=== PATIENT | male | born 1930 | race Caucasian/White ===

== ENCOUNTER 2018-03-17 09:53 | Inpatient (IN) ==
--- NOTE | 2018-03-17 15:12 | Internal Med History&Physical ---
<Karlee Pal N - Last Filed: 03/17/18 18:04> Date of Encounter: 03/17/18 Time of Encounter: 14:56 Internal Medicine - H&P: HPI Chief complaint: difficulty voiding Admitted From: Intrahospital Transfer History of present illness: Mr. Bean is a 87 year old male with a PMHx of atrial fibrillation on warfarin, COPD, hyperlipidemia, CKD stage 2 who was hospitalized at [facility] in acute-care March 06-2017 after presenting with worsening dyspnea and nonproductive cough and was found to have RLL pneumonia. Per chart review, he was started on Rocephin, Zithromax, and IV clindamycin. WBC decreased during hospitalization and creatinine improved to 1.02 by date of discharge to swing bed. Pt transferred to swing bed on 03/09/2018 for ongoing IV antibiotics and PT/OT therapy. His dyspnea worsened on March 15. Chest x-ray showed stable right lower lobe consolidation and mild left basilar consolidation. He was started on Levaquin and a Probiotic. His dyspnea lessened over the next 2 days. He had difficulty voiding and Murillo catheter was reinserted. He had hematuria after catheter insertion, but this improved on March 17. His creatinine srini to 2.27 on March 17. BUN srini to 36. Echocardiogram found his LVEF to be 65-70%. Moderate aortic stenosis and mild tricuspid regurgitation was found. BNP was improved at 166 on March 17. On March 17, family requested transfer to [facility] for further evaluation of renal function and his prostate. Upon presentation to [facility], pt complains of worsening difficulty voiding. Pt's son reported he had an elevated PSA 7 years ago and was found to have BPH with a negative prostate biopsy. Pt denies frequency, urgency, or nocturia. Pt admits to right upper and b/l lower extremity edema that has improved for the past few days. Denies hx of heart failure. Pt denies CP. Admits to worsening SOB that occurs even after movement in bed. Admits to productive cough with coughing up small amounts of red sputum 4 days ago. Pt admits to having diarrhea the past we ek with the most recent diarrhea yesterday. 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 Psychiatric history: no psych history - Past Surgical History Surgical History: other Additional surgical history: Stent placed in right leg 20 years ago - Social History Smoking Status: Former smoker Smokeless Tobacco Status: No Alcohol use: occasionally Drug use: none Current living situation: Home - Independent Activity Level: Independent ambulation, Uses cane/walker - Family History Father Adopted: No Family Member Ethnicity: Non- Living Status: Hx Family Cardiac Disorders: Yes Hx Family Respiratory Disorders: No Hx Family Cancer: Yes Hx Family GI Disorders: No Hx Family Endocrine Disorder: No Hx Family Neuromuscular Disorders: No Hx Family Neurologic Disorders: No Hx Family HEENT Disorders: No Hx Family Autoimmune Disorders: No Internal Medicine - H&P: Meds Albuterol Sulfate [Albuterol Inhaler] 2 puff IH QID 09/01/15 [History] Aspirin [Adult Low Dose Aspirin EC] 81 mg PO DAILY 09/01/15 [History] Cholecalciferol (Vitamin D3) [Vitamin D3] 2,000 unit PO DAILY 09/01/15 [History] Diltiazem CD (24hr) [Cardizem CD] 300 mg PO DAILY 09/01/15 [History] Pravastatin Sodium [Pravachol] 20 mg PO HS 09/01/15 [History] Tiotropium [Spiriva] 18 mcg IH DAILY 09/01/15 [History] Budesonide/Formoterol 160/4.5 [Symbicort 160/4.5] 2 puff IH BIDR 03/06/18 [History] Guaifenesin [Mucinex] 600 mg PO BID 03/06/18 [History] Latanoprost/Pf [Latanoprost 0.005% Eye Drop] 1 drop BOTH EYES HS 03/06/18 [History] Albuterol Neb [Proventil Neb] 2.5 mg IH Q2H PRN inhsol 03/09/18 [Rx] Clindamycin 600 MG/50 ML [Cleocin Premix 600 MG/50 ML] 600 mg IVPB Q8H 5 Days bag 03/09/18 [Rx] Digoxin [Lanoxin] 0.125 mg PO DAILY tablet 03/09/18 [Rx] Finasteride [Proscar] 5 mg PO DAILY tablet 03/09/18 [Rx] Furosemide [Lasix] 20 mg PO DAILY tablet 03/09/18 [Rx] cefTRIAXone [Rocephin] 1,000 mg IVP DAILY 5 Days vial 03/09/18 [Rx] Brinzolamide/Brimonidine Tart [Simbrinza 1%-0.2% Eye Drops] 1 drop BOTH EYES BID 03/17/18 [History] Potassium Chloride [Klor-Con 10] 20 meq PO DAILY 03/17/18 [History] Warfarin [Coumadin] 1 mg PO MOFR 03/17/18 [History] Warfarin [Coumadin] 2 mg PO SUTUWETHSA 03/17/18 [History] Allergy/AdvReac Type Severity Reaction Status Date / Time No Known Allergies Allergy Verified 03/06/18 09:37 All Systems PM: A 10-system review of systems was performed and is negative for pertinent findings except as documented above in the HPI. - Constitutional Constitutional: weakness - EENT Eyes: no blurry vision, no change in vision Ears: decreased hearing Nose, mouth and throat: dry mouth - Cardiovascular Cardiovascular ROS IM: dyspnea, dyspnea on exertion, edema, irregular heart rhythm, palpitations, no chest pain, no diaphoresis - Respiratory Respiratory: cough, dyspnea, dyspnea on exertion, change in phlegm color - Gastrointestinal Gastrointestinal: change in bowel habits, diarrhea, no abdominal pain, no hematochezia, no melena, no nausea, no vomiting - Genitourinary Genitourinary ROS male: difficulty urinating, hematuria, no dysuria, no nocturia, no urinary frequency, no urinary urgency - Musculoskeletal Musculoskeletal ROS IM: no arthralgias, no back pain, no joint swelling Additional comments: chronic L hip pain - Integumentary Additional comments: R anterior patel skin tear. Not bleeding - Hematologic/Lymphatic Hematologic/Lymphatic: easy bleeding, easy bruising - Constitutional Vitals: Temp Pulse Resp BP Pulse Ox 97.4 F L 80 18 125/74 95 03/17/18 13:06 03/17/18 13:06 03/17/18 13:06 03/17/18 13:06 03/17/18 13:06 General appearance: Present: cooperative, pleasant, no acute distress, answers questions appropriately Exam: Awake - Head Head exam: Present: atraumatic, normocephalic - Eye Eye exam: Present: normal appearance, PERRL, conjuntiva pink, sclera anicteric. Absent: scleral icterus Pupils: Present: PERRL - Neck Neck exam general surgery: Present: supple, trachea midline. Absent: lymphadenopathy - Respiratory Respiratory exam: Present: prolonged expiratory phase, wheezes. Absent: accessory muscle use, CTAB, rales, respiratory distress, rhonchi, tachypnea - Cardiovascular Cardiovascular exam: Present: irregular rhythm, +S1, +S2. Absent: bradycardia, diastolic murmur, RRR, rubs, systolic murmur, tachycardia - GI/Abdominal GI/Abdominal exam: Present: normal bowel sounds, soft, no peritoneal signs. Absent: distended, hepatomegaly, tenderness - Additional comments: dark urine in murillo catheter bag. No gross blood - Extremities Exam Extremities exam: Present: warm, radial pulses palpable and symmetrical. Absent: calf tenderness, cyanotic, pedal edema Additional comments: 2+ in b/l upper extremities with R worse than L arm - Skin Skin exam: Present: dry. Absent: intact Additional comments: Right anterior tibial superficial 2 cm skin tear - Assessment and plan (1) IRAIS (acute kidney injury) Current Visit: Yes Status: Acute Assessment and plan: Creatinine increased from baseline: 1.1 to 2.7. Etiology possibly from prenenal azotemia, BPH, post-renal obstruction, dehydration, nephrotic syndrome, sepsis-induced, medication-induced Plan: -renal ultrasound pending -IV fluid challenge (Echocardiogram found his LVEF to be 65-70%) -urine creatinine and sodium urine, CK, repeat UA pending -monitor BMP, I&O's -consider Urology consult in the future per family concerns (2) COPD (chronic obstructive pulmonary disease) Current Visit: Yes Status: Chronic Assessment and plan: Chronic Plan: -restart home meds Qualifiers: COPD type: unspecified COPD Qualified Code(s): J44.9 - Chronic obstructive pulmonary disease, unspecified (3) Urinary retention Current Visit: No Status: Acute Assessment and plan: -murillo in place -monitor I&O's -consider voiding trial after creatinine improves (4) CKD (chronic kidney disease) stage 2, GFR 60-89 ml/min Current Visit: No Status: Chronic Assessment and plan: Chronic -acutely worsening due to IRAIS -GFR decreased to 27 from baseline of above 60 -hold medications that can cause IRAIS -continue to monitor (5) Pneumonia Current Visit: No Status: Resolved Assessment and plan: -previous chest x-ray showed RLL and LLL infiltrates -repeat chest x-ray pending -previously on Levaquin, Rocephin, Clindamycin, and Azithromycin since March 10 -most likely resolved and been adequately treated with previous antibiotics Qualifiers: Pneumonia type: due to unspecified organism Laterality: bilateral Lung location: lower lobe of lung Qualified Code(s): J18.1 - Lobar pneumonia, unspecified organism (6) Chronic atrial fibrillation Current Visit: No Status: Chronic Assessment and plan: Chronic -continue warfarin, diltiazem, and Toprol -recent echocardiogram showed LVEF was 65-70%. There was moderate aortic stenosis and mild tricuspid regurgitation. The estimated RVSP was elevated at 41. (7) Edema Current Visit: No Status: Acute Assessment and plan: Acute -albumin 2.7 on 03/13/18 -unclear etiology Qualifiers: Edema type: unspecified Qualified Code(s): R60.9 - Edema, unspecified (8) Diarrhea Current Visit: No Status: Acute Assessment and plan: Improving -GI panel including C. diff at [facility] was negative -CTM Qualifiers: Diarrhea type: unspecified type Qualified Code(s): R19.7 - Diarrhea, un specified (9) Hyperlipidemia Current Visit: No Status: Chronic Assessment and plan: Chronic -restart simvastatin Qualifiers: Hyperlipidemia type: unspecified Qualified Code(s): E78.5 - Hyperlipidemia, unspecified - Time Spent With Patient Total time spent is greater than 50% in coordination of care (as documented) at patient's floor/unit and/or counseling patient: Greater than 35 minutes <Cristiano Greene - Last Filed: 03/17/18 18:59> Internal Medicine - H&P: HPI History of present illness: Mr. Bean is a 87 year old male All Systems PM: A 10-system review of systems was performed and is negative for pertinent findings except as documented above in the HPI. - Constitutional Vitals: Temp Pulse Resp BP Pulse Ox 97.8 F 77 16 119/68 96 03/17/18 15:09 03/17/18 15:09 03/17/18 15:09 03/17/18 15:09 03/17/18 15:09 - Assessment and plan (1) Acute renal failure Current Visit: Yes Status: Suspected Qualifiers: Acute renal failure type: with acute tubular necrosis Qualified Code(s): N17.0 - Acute kidney failure with tubular necrosis (2) Urinary retention Current Visit: No Status: Acute (3) Chronic atrial fibrillation Current Visit: No Status: Chronic (4) Hyperlipidemia Current Visit: No Status: Chronic Qualifiers: Hyperlipidemia type: mixed hyperlipidemia Qualified Code(s): E78.2 - Mixed hyperlipidemia (5) Diarrhea Current Visit: No Status: Acute Qualifiers: Diarrhea type: unspecified type Qualified Code(s): R19.7 - Diarrhea, unspecified (6) COPD (chronic obstructive pulmonary disease) Current Visit: Yes Status: Chronic Qualifiers: COPD type: unspecified COPD Qualified Code(s): J44.9 - Chronic obstructive pulmonary disease, unspecified - Time Spent With Patient Total time spent is greater than 50% in coordination of care (as documented) at patient's floor/unit and/or counseling patient: - Attending Attestation The history, physical exam, and medical decision making was performed by the medical student either while I was physically present and actively involved or I personally re-performed the exam and medical decision making. I have verified the accuracy of the medical student's documentation with regards to the history, physical exam findings, and medical decision making on 03/17/18. Mr Bean is 87 y/o male transferred from [facility] due to acute renal insufficiency and urinary retention. He had been hospitalized for pneumonia and had been moved to swing bed. He became more dyspneic and edematous. Creatinine increased and he needed to have murillo replaced. He was transferred for further care. At this time he feels weak. He is dyspneic with movement. He remains edematous and has had some diarrhea. No fever or chills. Family at bedside. Exam alert Moderate distress with movement Mucus membranes dry Heart distant Lungs with scant end exp wheeze on R Abd soft Edema all extremities Rupper > L, L lower > R. Moves all extremities. I/P 1. IRAIS - most likely prerenal vs postobstructive - maintain murillo. Small amount IV fluids 2. Pneumonia - has received adequate abx. follow for now Further diagnoses and plan as above.
[2018-03-17] MEDS ORDERED: Naloxone 0.4 MG/ML INJ IVP PRN (15:54)
[2018-03-17] MEDS: 0.9 % Sodium Chloride 1,000 ML IVC SCH (16:35)
[2018-03-17] MEDS ORDERED: Warfarin perPT PO PRN (18:00)
[2018-03-17] MEDS ORDERED: *HR* Warfarin 2 MG TABLET PO ONE (18:00)
[2018-03-17] MEDS: Ipratropium/Albuterol Neb 3 ML IH SCH ×3 (18:03→23:56)
[2018-03-17] MEDS: Budesonide/Formoterol 160/4.5 1 PUFF INH IH SCH (20:56)
[2018-03-17] MEDS: Latanoprost 2.5 ML BOTTLE BOTH EYES SCH (21:04)
[2018-03-17] MEDS: Brinzolamide/Brimonidine Tart [Simbrinza 1%-0.2% Eye OP SCH (21:05)
[2018-03-18] MEDS ORDERED: Pantoprazole 40 MG VIAL IVP ONE (02:21)
[2018-03-18] MEDS: Pantoprazole 40 MG in 0.9 % Sodium Chloride Mini Bag 100 ML IVC SCH ×5 (02:46→23:39)
--- NOTE | 2018-03-18 02:51 | Event Note ---
Addendum entered and electronically signed by Susan Ramey 03/18/18 03:39: Patient was examined at the bedside after this bleeding incident. He was in no acute distress and denied any continued discomfort. He denied shortness of breath or chest discomfort. Nursing staff obtained new vital signs, which were all WNL. Patient denies any tenderness to abdominal palpation. Original Note: Date of Encounter: 03/18/18 Time of Encounter: 02:50 Nursing staff reported "black tarry" emesis. Upon arrival to bedside, patient is sitting up comfortably in bed. He denies any current nausea or abdominal pain, and states that he feels better now than he did prior to vomiting. He did have some heartburn symptoms earlier this evening; however, he says that has now resolved. He reports little PO intake this evening, and denies consumption of coffee or other dark colored liquids. Patient denies any history of GERD or GI bleed, though he does report experiencing heartburn "more than I probably should". He is currently on coumadin therapy secondary to atrial fibrillation. His last INR was therapeutic at 2.4. Patient was started on protonix gtt at 8mg/hr, with a one-time loading dose of 40mg IVP. Laboratory was contacted to draw AM labs at this time along with type and screen. Plan for repeat hemoglobin and hematocrit in 4 hours. Will hold morning dose of coumadin at this time and consider warfarin reversal via PCC or FFP if patient experiences additional bleeding episodes.
[2018-03-18 03:10] LABS: Basophils # 0.1 K/mcL (0.0-0.2); Basophils % 0.4 %; Eosinophils # 0.1 K/mcL (0.0-0.6); Eosinophils % 0.4 %; Hematocrit 36.5 % (37.5-50.1); Hemoglobin 12.4 g/dL (12.9-16.9); Immature Granulocytes % 2.4 % (0-4); Lymphocytes # 0.8 K/mcL (0.6-4.6); Lymphocytes % 4.7 %; Mean Corpuscular Hemoglobin 30.1 pg (28.0-33.3); Mean Corpuscular Volume 88.6 fL (83.0-100.0); Mean Platelet Volume 8.8 fL (9.4-12.4); Monocytes % 6.2 %; Neutrophils # 13.8 K/mcL (1.6-8.9); Platelet Count 200 K/mcL (140-400); Red Blood Count 4.12 M/mcL (4.19-5.50); Red Cell Distribution Width 14.2 % (11.5-14.5); Segmented Neutrophils % 85.9 %
[2018-03-18 03:22] LABS: INR 2.8
[2018-03-18 03:26] LABS: Calcium 7.9 mg/dL (8.6-10.3); Magnesium 1.8 mg/dL (1.6-2.6); Phosphorous 4.9 mg/dL (2.7-4.5); Potassium 4.9 mEq/L (3.5-5.1)
[2018-03-18] MEDS: Ipratropium/Albuterol Neb 3 ML IH SCH ×6 (03:31→23:51)
[2018-03-18] MEDS: Ondansetron 4 MG/2 ML VIAL IVP PRN (04:42)
[2018-03-18 05:56] LABS: Bilirubin,Urine Small (Negative); Blood,Urine Large (Negative); Clarity,Urine Cloudy (Clear); Color,Urine Dark Yellow (Yellow); Glucose,Urine (UA) Normal (Normal); Ketones,Urine Trace mg/dL (Negative); Leukocyte Esterase,Urine Trace (Negative); Nitrite,Urine Negative (Negative); Protein,Urine >=1000 mg/dL (Neg-Trace); Specific Gravity,Urine > 1.030 (1.010-1.025); Urobilinogen,Urine Normal (Normal)
[2018-03-18 05:59] LABS: Bacteria,Urine None Seen per hpf (None-Few); Hyaline Casts,Urine None Seen per lpf (None-Few); RBC,Urine TNTC per hpf (0-3); Squamous Epithelial Cell,Urine Few per lpf (None-Few); WBC,Urine 0-3 per hpf (0-3)
[2018-03-18 06:14] LABS: Sodium, Urine 17.9 mEq/L
[2018-03-18] MEDS: 0.9 % Sodium Chloride 1,000 ML IVC SCH (06:25)
[2018-03-18 06:48] LABS: Hematocrit 37.6 % (37.5-50.1); Hemoglobin 12.7 g/dL (12.9-16.9)
[2018-03-18] MEDS: Budesonide/Formoterol 160/4.5 1 PUFF INH IH SCH ×2 (07:40→20:14)
[2018-03-18] MEDS: Aspirin Enteric Coated 81 MG Tablet PO SCH (07:50)
[2018-03-18] MEDS: Diltiazem CD (24hr) 300 MG CAPSULE PO SCH (07:50)
[2018-03-18] MEDS: *HR* Digoxin 0.125 MG TABLET PO SCH (07:51)
[2018-03-18] MEDS: Brinzolamide/Brimonidine Tart [Simbrinza 1%-0.2% Eye OP SCH (08:00)
[2018-03-18] MEDS ORDERED: Tiotropium 18 MCG inhalation IH SCH (09:00)
--- NOTE | 2018-03-18 10:49 | Internal Med Progress Note ---
<Jl Andrade Chito - Last Filed: 03/18/18 13:31> Hospitalist Progress Note - Encounter Date of Encounter: 03/18/18 Time of Encounter: 09:00 - Subjective Interval History: Sitting comfortably in bed. No new complaints this morning. Had 1 episode black tarry emesis ~0200. Denies abdominal pain, further emesis, similar prior emesis, chest pain, blurry vision/diplopia, dizzy/lightheadedness, or syncope. He does admit to GOMEZ that is significant even when moving in bed. Wears O2 at night at home. - Exam Vitals: Temp Pulse Resp BP Pulse Ox 98.3 F 80 18 133/76 98 03/18/18 06:39 03/18/18 06:39 03/18/18 07:40 03/18/18 06:39 03/18/18 07:40 Exam: General: Awake, alert, appears stated age, mildly dyspnic with movement and conversation, no signs of acute toxicity HEENT: EOMi, pupils equal/round, mucus membranes moist. Cardiac: Regular rate, irregularly irregular rhythm, S1/S2 present but distant, no murmurs, heaves, thrills appreciated, radial pulse 2+ bilaterally, normal capillary refill, 3+ LE edema L>R, UE R>L Chest: Symmetric chest rise, non tender Pulmonary: Decreased air movement, normal resp effort, diffuse end exp wheezes, no rhonchi, rales appreciated Abdominal: Soft, non-tender, no distention, guarding, rebound tenderness, or rigidity Neuro: AOx3, CN grossly intact Psych: Normal affect Integumentary: [place], warm, dry, R lower leg bandaged with break in skin, clear drainage present - Assessment and Plan (1) [id number] kidney injury Current Visit: Yes Status: Acute Assessment and Plan: -CKD 2 -Creatinine increased from baseline: 1.1 to 2.7 at [place]. -Cr worse today at 3.03, BUN 51, GFR 20 -Etiology possibly from prenenal azotemia, BPH, post-renal obstruction, dehydration, nephrotic syndrome, sepsis-induced, medication-induced -Renal ultrasound unremarkable -Received 2L IV NS -Ur Cr 257, Ur Na 17.9, UA with large macro and microscopic blood and trace esterase. -Urine culture pending -Mckee in place with hematuria noted on insertion -Trend renal function, I&O's and avoid nephrotoxic medications -Neph consulted today and will appreciate their input. (2) UGI bleed Current Visit: Yes Status: Suspected Assessment and Plan: -1 episode of black, tarry emesis ~0200 -Warfarin held overnight -Protonix infusion started overnight -GI consulted and will do EGD probably tomorrow if INR <2, currently 2.8 -NPO at midnight for EGD (3) Urinary retention Current Visit: No Status: Acute Assessment and Plan: -Mckee placed, hematuria noted at placement and on UA -Worsening IRAIS currently -Monitor I&O's (4) Chronic atrial fibrillation Current Visit: No Status: Chronic Assessment and Plan: -Continuing home digoxin and diltiazem -Warfarin held for possible EGD tomorrow when INR <2 for possible UGI bleed. -Recent ECHO showed LVEF was 65-70%, moderate as and mild tr. Estimated RVSP was elevated at 41. (5) COPD (chronic obstructive pulmonary disease) Current Visit: Yes Status: Chronic Assessment and Plan: -Continue home meds and duonebs q4h -Will start PO prednisone today. (6) Edema Current Visit: No Status: Acute Assessment and Plan: -Albumin 2.7 on 03/13/18 -LE edema 3+ L>R, UE R>L -ECHO EF 65-70% -No pulm effusion or increasing congestion on CXR (7) Diarrhea Current Visit: No Status: Acute Assessment and Plan: -GI panel with C diff at [place] neg (8) Hyperlipidemia Current Visit: No Status: Chronic Assessment and Plan: Continue home statin DVT Prophylaxis: Warfarin held today for possible UGI bleed. INR 2.8 currently. - Time Spent with Patient Total time spent is greater than 50% in coordination of care (as documented) at patient's floor/unit and/or counseling patient: less than 15 minutes Plan of Care Discussed with: patient Internal Medicine: Result - Labs CBC & Chem 7: 03/18/18 06:40 03/18/18 02:55 Labs: Short CBC 03/18/18 03/18/18 Range/Units 02:55 06:40 WBC 16.0 H (4.3-11.1) K/mcL Hgb 12.4 L 12.7 L (12.9-16.9) g/dL Hct 36.5 L 37.6 (37.5-50.1) % Plt Count 200 (140-400) K/mcL Neutrophils # 13.8 H (1.6-8.9) K/mcL BMP 03/18/18 02:55 Sodium 136 Potassium 4.9 Chloride 105 Carbon Dioxide 21 L BUN 51 H Creatinine 3.03 H Glucose 181 H Calcium 7.9 L Urine 03/18/18 Range/Units 05:11 Urine Color Dark Yellow (Yellow) Urine Clarity Cloudy A (Clear) Urine pH 5.0 (5.0-8.0) pH Units Ur Specific [place] > 1.030 H (1.010-1.025) Urine Protein >=1000 H (Neg-Trace) mg/dL Urine Glucose (UA) Normal (Normal) mg/dL - ABG Interpretation ABG results: PT/INR, D-dimer PT 32.0 Seconds (9.4-12.1) H 03/18/18 02:55 - Impressions Impressions Chest X-Ray 03/17/18 16:05 IMPRESSION: Bibasilar opacities suspicious for pneumonia. Findings appear stable since comparison exam. D/ / Anthony Faye MD / Anthony Faye MD Interpreting Provider: Anthony Faye MD Retroperitoneum Ultrasound 03/17/18 22:00 IMPRESSION: Unremarkable ultrasound of the kidneys and urinary bladder. D/ / Ryan Dhaliwal MD / Ryan Dhaliwal MD Interpreting Provider: Ryan Dhaliwal MD Consult Discharge Plan - Plan Referrals: Samuel Hyatt MD [Primary Care Provider] - <Cristiano Greene - Last Filed: 03/18/18 18:05> Hospitalist Progress Note - Exam Vitals: Temp Pulse Resp BP Pulse Ox 97.7 F 69 14 125/69 96 03/18/18 14:01 03/18/18 14:01 03/18/18 15:54 03/18/18 14:01 03/18/18 15:54 - Assessment and Plan (1) Chronic atrial fibrillation Current Visit: No Status: Chronic (2) Coffee ground emesis Current Visit: Yes Status: Acute (3) Acute renal failure Current Visit: Yes Status: Suspected (4) Urinary retention Current Visit: No Status: Acute (5) COPD (chronic obstructive pulmonary disease) Current Visit: Yes Status: Chronic - Time Spent with Patient Total time spent is greater than 50% in coordination of care (as documented) at patient's floor/unit and/or counseling patient: Internal Medicine: Result - Labs CBC & Chem 7: 03/18/18 06:40 03/18/18 02:55 Labs: Short CBC 03/18/18 03/18/18 Range/Units 02:55 06:40 WBC 16.0 H (4.3-11.1) K/mcL Hgb 12.4 L 12.7 L (12.9-16.9) g/dL Hct 36.5 L 37.6 (37.5-50.1) % Plt Count 200 (140-400) K/mcL Neutrophils # 13.8 H (1.6-8.9) K/mcL BMP 03/18/18 02:55 Sodium 136 Potassium 4.9 Chloride 105 Carbon Dioxide 21 L BUN 51 H Creatinine 3.03 H Glucose 181 H Calcium 7.9 L Urine 03/18/18 Range/Units 05:11 Urine Color Dark Yellow (Yellow) Urine Clarity Cloudy A (Clear) Urine pH 5.0 (5.0-8.0) pH Units Ur Specific [place] > 1.030 H (1.010-1.025) Urine Protein >=1000 H (Neg-Trace) mg/dL Urine Glucose (UA) Normal (Normal) mg/dL - ABG Interpretation ABG results: PT/INR, D-dimer PT 32.0 Seconds (9.4-12.1) H 03/18/18 02:55 - Impressions Impressions Chest X-Ray 03/17/18 16:05 IMPRESSION: Bibasilar opacities suspicious for pneumonia. Findings appear stable since comparison exam. D/ / Anthony Faye MD / Anthony Faye MD Interpreting Provider: Anthony Faye MD Retroperitoneum Ultrasound 03/17/18 22:00 IMPRESSION: Unremarkable ultrasound of the kidneys and urinary bladder. D/ / Ryan Dhaliwal MD / Ryan Dhaliwal MD Interpreting Provider: Ryan Dhaliwal MD - Attending Attestation I examined this patient and my medical decision-making was reviewed with the Resident Physician on 03/18/18. I agree with the documented findings, disposition and treatment plan as described except to the extent set forth below. Mr Bean has been in observation for acute renal failure. He remains moderate to high risk due to potential for worsening clinical status. Mr Bean had some dark emesis last night. No fever or chills. H/H stable. No pain. Breathing OK at this time though seems to be wheezing some. Exam alert Comfortable in bed Mucus membranes dry Heart distant Lungs with some end exp wheeze Abd soft Edema persists. I/P 1. IRAIS - renal function worse today. More than double baseline. Will make inpatient status today as he is not going to be discharged 2. Possible GI bleed - EGD tomorrow Further diagnoses and plan as above. <Jl Andrade - Last Filed: 03/18/18 13:31> (5) COPD (chronic obstructive pulmonary disease) Qualifiers: COPD type: unspecified COPD Qualified Code(s): J44.9 - Chronic obstructive pulmonary disease, unspecified (6) Edema Qualifiers: Edema type: unspecified Qualified Code(s): R60.9 - Edema, unspecified (7) Diarrhea Qualifiers: Diarrhea type: unspecified type Qualified Code(s): R19.7 - Diarrhea, unspecified (8) Hyperlipidemia Qualifiers: Hyperlipidemia type: mixed hyperlipidemia Qualified Code(s): E78.2 - Mixed hyperlipidemia <Cristiano Greene - Last Filed: 03/18/18 18:05> (3) Acute renal failure Qualifiers: Acute renal failure type: with acute tubular necrosis Qualified Code(s): N17.0 - Acute kidney failure with tubular necrosis (5) COPD (chronic obstructive pulmonary disease) Qualifiers: COPD type: unspecified COPD Qualified Code(s): J44.9 - Chronic obstructive pulmonary disease, unspecified
[2018-03-18] MEDS: Ipratropium/Albuterol Neb 3 ML IH ONE ×2 (11:16→11:18)
--- NOTE | 2018-03-18 11:38 | Nephrology Consult Note ---
Addendum entered and electronically signed by Sunny Gomes DO 03/22/18 15:25: I have personally performed a face to face evaluation on this patient. I have reviewed and agree with the care plan. History and Exam by me shows: 87 y/o WM who presented with IRAIS, supratherapeutic INR and GIB. Rec placing a murillo for the urinary retention. Recommend a trial IVF for potential prerenal etiology. Will start the IRAIS work up and testing. Continue to follow a renal protective strategy. Thank you for consulting the [facility]. Will follow with you. Original Note: Date of Encounter: 03/18/18 Time of Encounter: 11:27 Assessment and Plan (1) IRAIS (acute kidney injury) Current Visit: Yes Status: Acute Serum creatinine is 3.03 today with a GFR of 20. Baseline appears to be normal kidney function. Avoid nephrotoxins and renal dose all medications. Strict I&O and daily weights. Urine eosinophil ordered to rule out acute interstitial nephritis. (2) UGI bleed Current Visit: Yes Status: Suspected Per primary. (3) Urinary retention Current Visit: No Status: Acute Resolved, Murillo cath in place. (4) Pneumonia Current Visit: No Status: Resolved Per primary. Qualifiers: Pneumonia type: due to unspecified organism Laterality: bilateral Lung location: lower lobe of lung Qualified Code(s): J18.1 - Lobar pneumonia, unspecified organism (5) Wound of right lower extremity Current Visit: Yes Status: Acute Continue to cover and change as needed. Qualifiers: Qualified Code(s): S81.801A - Unspecified open wound, right lower leg, initial encounter History of Present Illness - Reason for Consult Consult date: 03/18/18 Acute Kidney Injury Requesting physician: Cristiano Greene - Chief Complaint dyspnea - History of Present Illness Mr. Bean is 87-year-old male who was transferred from [facility]. He was originally admitted there March 06. He was then transferred to "swing bed for rehabilitation". Yesterday he was transferred to [facility] for worsening dyspnea and non productive cough. Chest x-ray reflective of pneumonia. He was started on Levaquin and a probiotic. He also had trouble voiding, and a Murillo catheter was reinserted. He had gross hematuria with an increased SCR. Scr is 3.03 and GFR is 20 today. On 03/15/18 GFR was greater than 60 and Scr was 0.89. Much of the IRAIS workup has been completed. Retroperitoneal US was negative, Urine NA was 17.9. UA + for blood, ketones, bilirubin and Leukocyte Esterase, a culture was ordered. He does still have a murillo cath, but urine color has improved. Mr. Bean has not seen a cartographic aide in approximately 10 years. The one he did see was at the [facility] in a kidney biopsy was performed. Patient is unsure as to why it was performed or what it did result. He denies a family history of hemodialysis but does tell me that his brother had CKD. He denies chronic use of NSAIDs. Home Medication list reviewed and he is on Lasix 20 mg by mouth daily. No other nephrotoxic agents noted on the list. He lives at home by himself. He is a former smoker he quit approximately 12 years ago. He denies any illicit drug use, he does report he was a pretty "heavy drinker" and he stopped approximately 5-6 years ago. [facility] were consulted for management of IRAIS. Continue IV fl uid, avoid any nephrotoxic agents. Strict I&O, daily weights. 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 Psychiatric history: no psych history - Past Surgical History Surgical History: other Additional surgical history: Stent placed in right leg 20 years ago - Social History Smoking Status: Former smoker Smokeless Tobacco Status: No Alcohol use: occasionally Drug use: none - Family History Father Adopted: No Family Member Ethnicity: Non- Living Status: Hx Family Cardiac Disorders: Yes Hx Family Respiratory Disorders: No Hx Family Cancer: Yes Hx Family GI Disorders: No Hx Family Endocrine Disorder: No Hx Family Neuromuscular Disorders: No Hx Family Neurologic Disorders: No Hx Family HEENT Disorders: No Hx Family Autoimmune Disorders: No Medications and Allergies Albuterol Sulfate [Albuterol Inhaler] 2 puff IH QID 09/01/15 [History] Aspirin [Adult Low Dose Aspirin EC] 81 mg PO DAILY 09/01/15 [History] Cholecalciferol (Vitamin D3) [Vitamin D3] 2,000 unit PO DAILY 09/01/15 [History] Diltiazem CD (24hr) [Cardizem CD] 300 mg PO DAILY 09/01/15 [History] Pravastatin Sodium [Pravachol] 20 mg PO HS 09/01/15 [History] Tiotropium [Spiriva] 18 mcg IH DAILY 09/01/15 [History] Budesonide/Formoterol 160/4.5 [Symbicort 160/4.5] 2 puff IH BIDR 03/06/18 [History] Guaifenesin [Mucinex] 600 mg PO BID 03/06/18 [History] Latanoprost/Pf [Latanoprost 0.005% Eye Drop] 1 drop BOTH EYES HS 03/06/18 [History] Albuterol Neb [Proventil Neb] 2.5 mg IH Q2H PRN inhsol 03/09/18 [Rx] Clindamycin 600 MG/50 ML [Cleocin Premix 600 MG/50 ML] 600 mg IVPB Q8H 5 Days bag 03/09/18 [Rx] Digoxin [Lanoxin] 0.125 mg PO DAILY tablet 03/09/18 [Rx] Finasteride [Proscar] 5 mg PO DAILY tablet 03/09/18 [Rx] Furosemide [Lasix] 20 mg PO DAILY tablet 03/09/18 [Rx] cefTRIAXone [Rocephin] 1,000 mg IVP DAILY 5 Days vial 03/09/18 [Rx] Brinzolamide/Brimonidine Tart [Simbrinza 1%-0.2% Eye Drops] 1 drop BOTH EYES BID 03/17/18 [History] Potassium Chloride [Klor-Con 10] 20 meq PO DAILY 03/17/18 [History] Warfarin [Coumadin] 1 mg PO MOFR 03/17/18 [History] Warfarin [Coumadin] 2 mg PO SUTUWETHSA 03/17/18 [History] Allergy/AdvReac Type Severity Reaction Status Date / Time No Known Allergies Allergy Verified 03/06/18 09:37 Review of Systems All Systems review (narrative): The remainder of the systems are negative. Constitutional: no chills, no fatigue, no fever(s) Nose, mouth and throat: dry mouth Cardiovascular: dyspnea on exertion, no chest pain Respiratory: cough Gastrointestinal: hematemesis, no change in bowel habits, no dyspepsia, no nausea, no vomiting Exam - Vital Signs Vital signs: Initial Vital Signs Temp Pulse Resp BP Pulse Ox 97.4 F L 80 18 125/74 95 03/17/18 13:06 03/17/18 13:06 03/17/18 13:06 03/17/18 13:06 03/17/18 13:06 Vital Signs - Last 8 Hours Temp Pulse Resp BP Pulse Ox 03/18/18 10:11 97.8 F 94 18 136/74 98 03/18/18 07:40 18 98 03/18/18 06:39 98.3 F 80 15 133/76 94 03/18/18 05:01 98.0 F 84 16 146/82 98 Intake and Output 03/17/18 03/18/18 03/18/18 23:59 07:59 15:59 Intake Total 320 / 320 1200 / 1200 480 / 480 Output Total 0 / 0 350 / 350 75 / 75 Balance 320 / 320 850 / 850 405 / 405 Intake: IV Fluids 1100 / 1100 0.9 % Sodium Chloride 1,000 ML 1000 / 1000 @ 100 mls/hr IVC .Q10H [facility]EL[facility] Rx#: [id number] Protonix 40 MG In 0.9 % Sodium 100 / 100 Chloride (Mini-Bag +) 100 ML @ 20 mls/hr IVC .Q5H [facility] Rx#: [id number] Oral 320 / 320 100 / 100 480 / 480 Output: Urine 0 / 0 Emesis 250 / 250 Catheter 0 / 0 100 / 100 75 / 75 Urethral (Murillo) 0 / 0 0 / 0 Other: Meal Dinner Breakfast Percent of Meal Consumed 5% 5% Weight 83.7 kg Blood Glucose* 108 Patient Weight 03/18/18 23:59 Weight 83.7 kg - General Appearance General appearance: well-developed, well-nourished EENT: ATNC, hearing intact, vision intact Neck: supple Respiratory: clear Cardiology: edema (+1 pitting edema noted to bilat lower extremities. Generalized swelling noted to entire body.), normal S1, normal S2 Gastrointestinal: normoactive bowel sounds, no tenderness, no guarding Integumentary: no rash, warm and dry Neurologic: alert and oriented x3 Psychiatric: mood/affect appropriate, cooperative Results - Lab Results 03/18/18 06:40 03/18/18 02:55 Most recent lab results Calcium 7.9 mg/dL (8.6-10.3) L 03/18/18 02:55 Phosphorus 4.9 mg/dL (2.7-4.5) H 03/18/18 02:55 Magnesium 1.8 mg/dL (1.6-2.6) 03/18/18 02:55 Urine Creatinine 257 mg/dL 03/18/18 05:11 Urine Sodium 17.9 mEq/L 03/18/18 05:11 Consult Discharge Plan - Plan Referrals: Samule Hyatt MD [Primary Care Provider] -
[2018-03-18] MEDS: predniSONE 20 MG TABLET PO SCH (15:13)
--- NOTE | 2018-03-18 15:37 | Gastroenterology Consult Note ---
<SabasJacob - Last Filed: 03/18/18 15:34> Date of Encounter: 03/18/18 Time of Encounter: 15:35 - Assessment and plan (1) Coffee ground emesis Current Visit: Yes Status: Acute Assessment and plan: Etiology unclear. Hemoglobin stable, hemodynamically stable. Patient does report history of GERD. Patient only had one episode. Patient is on aspirin as well as Coumadin making his risk for GI bleed elevated. Patient was noted to have epistaxis which could also be contributing. Plan for EGD tomorrow. No thing by mouth after midnight. (2) Chronic atrial fibrillation Current Visit: No Status: Chronic Assessment and plan: Currently anticoagulated with Coumadin. INR noted to be therapeutic. Hold for procedure tomorrow. - Time Spent With Patient Total time spent is greater than 50% in coordination of care (as documented) at patient's floor/unit and/or counseling patient: GI History of Present Illness - Data of Consult Patient: new to practice Consult date: 03/18/18 Requesting Physician: Cristiano Greene DO - Consult Narrative Reason for consult: coffe groud emesis History of present illness: Mr. Bean is a 87 year old male with history of atrial fibrillation, coronary disease, GERD who presents for evaluation of history of present illness. GI was consulted due to an episode of coffee-ground emesis. Patient states he was recently admitted to [facility] with pneumonia and was treated being treated for pneumonia however was noted that his kidney function has progressively worsened since transfer to [facility] for further evaluation. Upon arrival patient had a single episode of emesis that was noted to be black. He states he has never had anything like this before. He reports he just had one episode and no further episodes. Patient does report occasional nosebleeds. He reports that he is on Coumadin for his atrial fibrillation has been compliant with this. Denies any history of gastrointestinal bleed. He does report that he has had a long-standing history of heartburn. Denies any abdominal pain, nausea, diarrhea, change in bowel habits, hematochezia, melena. 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 Psychiatric history: no psych history - Past Surgical History Surgical History: other Additional surgical history: Stent placed in right leg 20 years ago - Social History Smoking Status: Former smoker Smokeless Tobacco Status: No Alcohol use: occasionally Drug use: none - Family History Father Adopted: No Family Member Ethnicity: Non- Living Status: Hx Family Cardiac Disorders: Yes Hx Family Respiratory Disorders: No Hx Family Cancer: Yes Hx Family GI Disorders: No Hx Family Endocrine Disorder: No Hx Family Neuromuscular Disorders: No Hx Family Neurologic Disorders: No Hx Family HEENT Disorders: No Hx Family Autoimmune Disorders: No All systems PM: reviewed and no additional remarkable complaints except as st ated - Constitutional Vitals: Temp Pulse Resp BP Pulse Ox 97.7 F 69 15 125/69 100 03/18/18 14:01 03/18/18 14:01 03/18/18 14:01 03/18/18 14:01 03/18/18 14:01 General appearance: Present: A&O X 3, pleasant, no acute distress - Head Head exam: Present: atraumatic, normal inspection, normocephalic - Respiratory Respiratory exam: Present: CTAB. Absent: rales, rhonchi, wheezes - Cardiovascular Cardiovascular exam: Present: irregular rhythm. Absent: gallop, rubs, systolic murmur, tachycardia - GI/Abdominal GI/Abdominal exam: Present: normal bowel sounds, soft. Absent: distended, tenderness - Extremities Exam Additional comments: Mild upper extremity edema Results - Labs CBC & Chem 7: 03/18/18 06:40 03/18/18 02:55 Labs: Last Result Calcium 7.9 mg/dL (8.6-10.3) L 03/18/18 02:55 Entire Visit Hgb 12.7 g/dL (12.9-16.9) L 03/18/18 06:40 Hct 37.6 % (37.5-50.1) 03/18/18 06:40 PT 32.0 Seconds (9.4-12.1) H 03/18/18 02:55 - ABG ABG results: PT/INR, D-dimer PT 32.0 Seconds (9.4-12.1) H 03/18/18 02:55 - Impressions Impressions Chest X-Ray 03/17/18 16:05 IMPRESSION: Bibasilar opacities suspicious for pneumonia. Findings appear stable since comparison exam. D/ / Anthony Faye MD / Anthony Faye MD Interpreting Provider: Anthony Faye MD Retroperitoneum Ultrasound 03/17/18 22:00 IMPRESSION: Unremarkable ultrasound of the kidneys and urinary bladder. D/ / Ryan Dhaliwal MD / Ryan Dhaliwal MD Interpreting Provider: Ryan Dhaliwal MD Consult Discharge Plan - Plan Referrals: Samuel Hyatt MD [Primary Care Provider] - <Eduardo Reyes - Last Filed: 03/19/18 09:23> - Time Spent With Patient Total time spent is greater than 50% in coordination of care (as documented) at patient's floor/unit and/or counseling patient: GI History of Present Illness - Data of Consult Requesting Physician: Cristiano Greene DO - Consult Narrative History of present illness: Mr. Bean is a 87 year old male - Constitutional Vitals: Temp Pulse Resp BP Pulse Ox 98.7 F 86 20 149/76 97 03/19/18 08:13 03/19/18 08:13 03/19/18 08:13 03/19/18 08:13 03/19/18 08:13 Results - Labs CBC & Chem 7: 03/19/18 04:59 03/19/18 04:59 Labs: Last Result Calcium 8.2 mg/dL (8.6-10.3) L 03/19/18 04:59 Entire Visit Hgb 11.9 g/dL (12.9-16.9) L 03/19/18 04:59 Hct 34.6 % (37.5-50.1) L 03/19/18 04:59 PT 32.0 Seconds (9.4-12.1) H 03/18/18 02:55 - ABG ABG results: PT/INR, D-dimer PT 32.0 Seconds (9.4-12.1) H 03/18/18 02:55 - Attending Attestation Mr Bean is a pleasant physically deconditioned 87 year old white male who presents with coffee-ground emesis. He has been anticoagulated with carbonation of aspirin and warfarin. His his last INR was 2.8. There is a questionable history of epistaxis. Patient does have some dysphagia and occasionally chokes on food. Standing history of gastroesophageal reflux. Recommend EGD on the morning of March 19. Multiple other problems as discussed above. Transfuse as needed. Thank you very much for this consultation I examined this patient and my medical decision-making was reviewed with the Resident Physician. I agree with the documented findings, disposition and treatment plan as described except to the extent set forth below.
[2018-03-18] MEDS: Latanoprost 2.5 ML BOTTLE BOTH EYES SCH (20:48)
[2018-03-18] MEDS: Brinzolamide 1% 10 ML BOTTLE BOTH EYES SCH (20:48)
[2018-03-19] MEDS: Ipratropium/Albuterol Neb 3 ML IH SCH ×5 (04:00→19:37)
[2018-03-19] MEDS: Pantoprazole 40 MG in 0.9 % Sodium Chloride Mini Bag 100 ML IVC SCH ×2 (04:34→10:45)
[2018-03-19 05:19] LABS: Hepatitis A Antibody IgM Nonreactive (Nonreactive); Hepatitis B Core IgM Nonreactive (Nonreactive); Hepatitis B Surface Antigen Nonreactive (Nonreactive); Hepatitis C Virus Antibody Nonreactive (Nonreactive)
[2018-03-19 05:23] LABS: Basophils % 0.2 %; Eosinophils % 0.1 %; Hematocrit 34.6 % (37.5-50.1); Hemoglobin 11.9 g/dL (12.9-16.9); Immature Granulocytes % 1.5 % (0-4); Lymphocytes # 0.6 K/mcL (0.6-4.6); Lymphocytes % 3.5 %; Mean Corpuscular HGB Conc 34.4 g/dL (31.6-35.5); Mean Corpuscular Hemoglobin 30.5 pg (28.0-33.3); Mean Corpuscular Volume 88.7 fL (83.0-100.0); Mean Platelet Volume 9.2 fL (9.4-12.4); Monocytes # 0.9 K/mcL (0.0-1.3); Monocytes % 4.8 %; Neutrophils # 15.9 K/mcL (1.6-8.9); Platelet Count 214 K/mcL (140-400); Red Cell Distribution Width 14.4 % (11.5-14.5); Segmented Neutrophils % 89.9 %
[2018-03-19] MEDS ORDERED: 0.9 % Sodium Chloride 250 ML ONE (05:25)
[2018-03-19 05:42] LABS: Calcium 8.2 mg/dL (8.6-10.3); Potassium 5.5 mEq/L (3.5-5.1)
[2018-03-19] MEDS: Budesonide/Formoterol 160/4.5 1 PUFF INH IH SCH ×2 (07:44→19:37)
[2018-03-19] MEDS ORDERED: Lidocaine -MPF 2% 2 ML VIAL ONE (07:54)
--- NOTE | 2018-03-19 07:58 | Anesthesia Evaluation PreOp ---
Date of Encounter: 03/19/18 Time of Encounter: 07:50 - Past History Planned Operation: EGD Cardiac History: HTN, Arrhythmia (Afib on coumadin, INR 2.8), Other (Impressions: Atrial fibrillation. LVEF 65-70%. Normal LV chamber size, wall thickness and systolic function. Mild RV dilation with normal function. Moderate aortic stenosis. Mild tricuspid regurgitation) Pulmonary History: Former smoker, COPD, Other (hospitalized with [facility] on MAR 06, mild pulmonary HTN) [employer] History: CVA (pt denies but stroke in H and P) Other Medical History: Renal (actue on chronic renal disease) Anesthesia History: No Prior Anesthetic Complications Alcohol Use: occasionally Drug use: none Medications and Allergies Albuterol Sulfate [Albuterol Inhaler] 2 puff IH QID 09/01/15 [History] Aspirin [Adult Low Dose Aspirin EC] 81 mg PO DAILY 09/01/15 [History] Cholecalciferol (Vitamin D3) [Vitamin D3] 2,000 unit PO DAILY 09/01/15 [History] Diltiazem CD (24hr) [Cardizem CD] 300 mg PO DAILY 09/01/15 [History] Pravastatin Sodium [Pravachol] 20 mg PO HS 09/01/15 [History] Tiotropium [Spiriva] 18 mcg IH DAILY 09/01/15 [History] Budesonide/Formoterol 160/4.5 [Symbicort 160/4.5] 2 puff IH BIDR 03/06/18 [History] Guaifenesin [Mucinex] 600 mg PO BID 03/06/18 [History] Latanoprost/Pf [Latanoprost 0.005% Eye Drop] 1 drop BOTH EYES HS 03/06/18 [History] Albuterol Neb [Proventil Neb] 2.5 mg IH Q2H PRN inhsol 03/09/18 [Rx] Clindamycin 600 MG/50 ML [Cleocin Premix 600 MG/50 ML] 600 mg IVPB Q8H 5 Days bag 03/09/18 [Rx] Digoxin [Lanoxin] 0.125 mg PO DAILY tablet 03/09/18 [Rx] Finasteride [Proscar] 5 mg PO DAILY tablet 03/09/18 [Rx] Furosemide [Lasix] 20 mg PO DAILY tablet 03/09/18 [Rx] cefTRIAXone [Rocephin] 1,000 mg IVP DAILY 5 Days vial 03/09/18 [Rx] Brinzolamide/Brimonidine Tart [Simbrinza 1%-0.2% Eye Drops] 1 drop BOTH EYES BID 03/17/18 [History] Potassium Chloride [Klor-Con 10] 20 meq PO DAILY 03/17/18 [History] Warfarin [Coumadin] 1 mg PO MOFR 03/17/18 [History] Warfarin [Coumadin] 2 mg PO SUTUWETHSA 03/17/18 [History] Allergy/AdvReac Type Severity Reaction Status Date / Time No Known Allergies Allergy Verified 03/06/18 09:37 - Meds/Allergy Pre-op Review Medications Reviewed: Yes Allergies Reviewed: Yes Beta Blockers on Current Med List: No Anesthesia Results - Labs 03/19/18 04:59 03/19/18 04:59 - Imaging EKG: report reviewed Anesthesia Exam Vital Signs Temperature 97.4 F L 03/17/18 13:06 Pulse Rate 80 03/17/18 13:06 Respiratory Rate 18 03/17/18 13:06 Blood Pressure 125/74 03/17/18 13:06 O2 Sat by Pulse Oximetry 95 03/17/18 13:06 Temperature 97.9 F 03/19/18 07:21 Pulse Rate 85 03/19/18 07:21 Respiratory Rate 16 03/19/18 07:44 Blood Pressure 152/69 03/19/18 07:21 O2 Sat by Pulse Oximetry 100 03/19/18 07:44 Weight: 83.7 Pain Scale: 0 Pain Scale Used: Numeric (1 - 10) - Cardiac Rhythm: Irregular Murmur: Systolic - Pulmonary Breath Sounds: bilateral Clear (wheezes bilaterally post breathing treatment) Respiratory Effort: Symmetrical Anesthesia Assess/Plan ASA Score: 4 Modified Sultana Scale for Level of Consciousness: Cooperative, oriented, and tranquil Anesthetic Plan: MAC Monitoring Plan: Standard Monitors Recovery Plan: PACU
[2018-03-19] MEDS: 0.9 % Sodium Chloride 1,000 ML IVC SCH (08:35)
--- NOTE | 2018-03-19 08:53 | Anesthesia Evaluation Post Op ---
Date of Encounter: 03/19/18 Time of Encounter: 08:52 - Vital Signs Vital Signs: BP 144/61, HR 105, SpO2 98% on 2 LNC, RR 22 - Lungs Lungs: Wheezes (baseline) - Airway Airway: Non-obstructed - Cardiovascular Irregular Rate, Baseline Rhythm - Mental Status Mental Status: Alert & Oriented, Answers Appropriately - Pain Pain Scale: 0 Pain Scale used: Numeric (1 - 10) - Nausea Vomiting Nausea Vomiting: Not Present - Discharge PostOp Status: Transfer Patient to floor
[2018-03-19] MEDS: predniSONE 20 MG TABLET PO SCH (09:32)
[2018-03-19] MEDS: *HR* Digoxin 0.125 MG TABLET PO SCH (09:32)
[2018-03-19] MEDS: Aspirin Enteric Coated 81 MG Tablet PO SCH (09:32)
[2018-03-19] MEDS: Diltiazem CD (24hr) 300 MG CAPSULE PO SCH (09:32)
[2018-03-19] MEDS: Brinzolamide 1% 10 ML BOTTLE BOTH EYES SCH ×2 (09:38→22:28)
[2018-03-19] MEDS: Ondansetron 4 MG/2 ML VIAL IVP PRN (09:42)
--- NOTE | 2018-03-19 10:29 | Internal Med Progress Note ---
Addendum entered and electronically signed by Cristiano Greene DO 03/21/18 13:05: Original Note: <RaymondJl Chito - Last Filed: 03/19/18 13:37> Hospitalist Progress Note - Encounter Date of Encounter: 03/19/18 Time of Encounter: 10:00 - Subjective Interval History: In bed after returning from EGD. No new complaints today, says breathing is a little more difficult today. Denies abdominal pain, further emesis, similar prior emesis, chest pain, blurry vision/diplopia, dizzy/lightheadedness, or syncope. - Exam Vitals: Temp Pulse Resp BP Pulse Ox 98.7 F 86 20 149/76 97 03/19/18 08:13 03/19/18 08:13 03/19/18 08:13 03/19/18 08:13 03/19/18 08:13 Exam: General: Awake, alert, appears stated age, no acute distress or signs of toxicity HEENT: EOMi, pupils equal/round, mucus membranes moist. Cardiac: Regular rate, irregularly irregular rhythm, S1/S2 present but distant, no murmurs, heaves, thrills appreciated, radial pulse 2+ bilaterally, normal capillary refill, 3+ LE edema L>R, UE R>L Chest: Symmetric chest rise, non tender Pulmonary: Decreased air movement, normal resp effort, diffuse end exp wheezes, no rhonchi, rales appreciated Abdominal: Soft, non-tender, no distention, guarding, rebound tenderness, or rigidity Neuro: AOx3, CN grossly intact Psych: Normal affect Integumentary: [place], warm, dry, R lower leg bandaged with break in skin, clear drainage present - Assessment and Plan (1) Acute renal failure Current Visit: Yes Status: Suspected Assessment and Plan: -Creatinine increased from baseline: 1.1 to 2.7 at [place]. -Etiology possibly from prenenal azotemia, BPH, post-renal obstruction, dehydration, nephrotic syndrome, sepsis-induced, medication-induced -Worsening today. Cr 3.73, BUN 80, GFR 15 -Renal ultrasound unremarkable -Received 2L IV NS -Mckee in place with noted hematuria on insertion. -UA with trace esterase but large blood and tntc microscopic blood. -Trend renal function, I&O's -Neph following and appreciate their recs. (2) Coffee ground emesis Current Visit: Yes Status: Acute Assessment and Plan: -1 episode of black, tarry emesis 03/18/18 -Warfarin held overnight for EGD today. -Protonix infusion continued for EGD -GI consulted and will do EGD today (3) Chronic atrial fibrillation Current Visit: No Status: Chronic Assessment and Plan: -Continuing home digoxin and diltiazem -Warfarin held for EGD today INR <2 for possible UGI bleed. -Recent ECHO showed LVEF was 65-70%, moderate as and mild tr. Estimated RVSP was elevated at 41. (4) COPD (chronic obstructive pulmonary disease) Current Visit: Yes Status: Chronic Assessment and Plan: -Continue home meds and duonebs q4h -Continue prednisone. -Breathing improved with prednisone. (5) Urinary retention Current Visit: No Status: Acute Assessment and Plan: -Mckee placed, hematuria noted at placement and on UA -Worsening IRAIS currently -Monitor I&O's (6) Edema Current Visit: No Status: Acute Assessment and Plan: -Albumin 2.7 on 03/13/18 -LE edema 3+ L>R, UE R>L -ECHO EF 65-70% -No pulm effusion or increasing congestion on CXR DVT Prophylaxis: Warfarin held for EGD today. - Time Spent with Patient Total time spent is greater than 50% in coordination of care (as documented) at patient's floor/unit and/or counseling patient: less than 15 minutes Plan of Care Discussed with: patient Internal Medicine: Result - Labs CBC & Chem 7: 03/19/18 04:59 03/19/18 04:59 Labs: Short CBC 03/19/18 Range/Units 04:59 WBC 17.7 H (4.3-11.1) K/mcL Hgb 11.9 L (12.9-16.9) g/dL Hct 34.6 L (37.5-50.1) % Plt Count 214 (140-400) K/mcL Neutrophils # 15.9 H (1.6-8.9) K/mcL BMP 03/19/18 04:59 Sodium 134 L Potassium 5.5 H Chloride 107 Carbon Dioxide 16 L BUN 80 H Creatinine 3.73 H Glucose 172 H Calcium 8.2 L - ABG Interpretation ABG results: PT/INR, D-dimer PT 32.0 Seconds (9.4-12.1) H 03/18/18 02:55 Consult Discharge Plan - Plan Referrals: Samuel Hyatt MD [Primary Care Provider] - <Cristiano Greene - Last Filed: 03/21/18 08:01> Hospitalist Progress Note - Exam Vitals: Temp Pulse Resp BP Pulse Ox 98 F 87 16 133/70 99 03/21/18 04:00 03/21/18 04:00 03/21/18 04:14 03/21/18 04:00 03/21/18 04:14 - Assessment and Plan (1) Chronic atrial fibrillation Current Visit: No Status: Chronic (2) COPD (chronic obstructive pulmonary disease) Current Visit: Yes Status: Chronic (3) Edema Current Visit: No Status: Acute (4) Urinary retention Current Visit: No Status: Acute (5) Acute renal failure Current Visit: Yes Status: Suspected (6) Esophageal ulcer with bleeding Current Visit: Yes Status: Acute (7) Hyperkalemia Current Visit: Yes Status: Acute - Time Spent with Patient Total time spent is greater than 50% in coordination of care (as documented) at patient's floor/unit and/or counseling patient: Internal Medicine: Result - Labs CBC & Chem 7: 03/21/18 06:14 03/21/18 04:53 Labs: Short CBC 03/21/18 Range/Units 06:14 WBC 18.7 H (4.3-11.1) K/mcL Hgb 11.1 L (12.9-16.9) g/dL Hct 33.0 L (37.5-50.1) % Plt Count 319 (140-400) K/mcL BMP 03/21/18 04:53 Sodium 134 L Potassium 5.6 H Chloride 106 Carbon Dioxide 14 L BUN 130 H Creatinine 4.17 H Glucose 144 H Calcium 7.8 L Liver Function 03/20/18 03/21/18 Range/Units 03:30 06:14 Total Bilirubin 0.5 (0.3-1.0) mg/dL Direct Bilirubin 0.1 (0.0-0.2) mg/dL AST 14 (13-39) Units/L ALT 16 (7-52) Units/L Alkaline Phosphatase 50 (34-104) Units/L Albumin 2.4 L 2.6 L (3.5-5.7) g/dL - ABG Interpretation ABG results: PT/INR, D-dimer PT 73.3 Seconds (9.4-12.1) H* 03/21/18 04:53 - Attending Attestation Please see event note of this date. <Jl Andrade - Last Filed: 03/19/18 13:37> (1) Acute renal failure Qualifiers: Acute renal failure type: with acute tubular necrosis Qualified Code(s): N17.0 - Acute kidney failure with tubular necrosis (4) COPD (chronic obstructive pulmonary disease) Qualifiers: COPD type: unspecified COPD Qualified Code(s): J44.9 - Chronic obstructive pulmonary disease, unspecified (6) Edema Qualifiers: Edema type: unspecified Qualified Code(s): R60.9 - Edema, unspecified <Cristiano Greene - Last Filed: 03/21/18 08:01> (2) COPD (chronic obstructive pulmonary disease) Qualifiers: COPD type: unspecified COPD Qualified Code(s): J44.9 - Chronic obstructive pulmonary disease, unspecified (3) Edema Qualifiers: Edema type: generalized Qualified Code(s): R60.1 - Generalized edema (5) Acute renal failure Qualifiers: Acute renal failure type: with acute tubular necrosis Qualified Code(s): N17.0 - Acute kidney failure with tubular necrosis
[2018-03-19] MEDS: Pantoprazole 40 MG VIAL IVP SCH (16:56)
--- NOTE | 2018-03-19 19:35 | Event Note ---
Date of Encounter: 03/19/18 Time of Encounter: 09:30 [facility] will not allow me to attest/cosign progress note of today. I examined this patient and my medical decision-making was reviewed with the Resident Physician on 03/19/18. I agree with the documented findings, disposition and treatment plan as described except to the extent set forth below. Mr Bean is currently admitted for acute renal failure and GI bleed. He remains moderate to high risk due to potential for worsening clinical status. Mr Bean just returned from EGD. Had esophageal ulcers. Breathing seems better with steroids. Still with edema. No fever or chills. No CP. No diarrhea. Exam alert Comfortable Mucus membranes dry Heart reg and not tachy No wheeze at this time Abd soft Edema persists I/P 1. Anemia due to acute bleed - 2. Esophageal ulcers 3. Acute renal failure 4. Fluid overload Further diagnoses and plan as per progress note of today.
--- NOTE | 2018-03-19 19:47 | Nephrology Progress Note ---
Date of Encounter: 03/19/18 Time of Encounter: 18:15 - Assessment and Plan (1) IRAIS (acute kidney injury) Current Visit: Yes Status: Acute Progressive decline and not a candidate for IVF d/t his hypervolemic volume status Mild hyperkalemia: rec a low K+ diet. 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 Continue to follow a renal protective/conservative strategy by avoiding nephrotoxins and renally dosing appropriate Rx by GFR/CrCl; keep strict I&O and daily weights. Will follow with you. (2) Pneumonia Current Visit: No Status: Resolved Per primary. Qualifiers: Pneumonia type: due to unspecified organism Laterality: bilateral Lung location: lower lobe of lung Qualified Code(s): J18.1 - Lobar pneumonia, unspecified organism (3) Urinary retention Current Visit: No Status: Acute IMproved with Mckee cath in place. (4) UGI bleed Current Visit: Yes Status: Suspected Per primary. (5) Wound of right lower extremity Current Visit: Yes Status: Acute Continue to cover and change as needed. Qualifiers: Qualified Code(s): S81.801A - Unspecified open wound, right lower leg, initial encounter (6) Renal cysts, acquired, bilateral Current Visit: Yes Status: Acute Newly diagnosed and most likely are acquired simple renal cysts. Would recommend serial imaging in about 6 months to assess size and density. Subjective Principal diagnosis: IRAIS Interval history: Pt was s/e and he did not affirm N/V but he did report having minimal if any diet. He reported some shortness of breath as well. Objective - Vital Signs Vital signs: Vital Signs Temp Pulse Resp BP Pulse Ox 03/19/18 18:49 98.4 F 95 15 156/55 97 03/19/18 16:24 18 99 03/19/18 13:54 97.6 F 99 18 138/69 98 03/19/18 11:39 18 98 03/19/18 11:01 97.6 F 92 20 145/71 98 03/19/18 09:15 97.4 F L 99 20 130/70 96 03/19/18 08:13 98.7 F 86 20 149/76 97 03/19/18 07:44 16 100 03/19/18 07:21 97.9 F 85 16 152/69 100 03/19/18 04:42 98.0 F 101 16 138/83 97 03/19/18 04:00 16 98 03/18/18 23:51 17 98 03/18/18 23:29 98.4 F 82 15 133/69 98 03/18/18 20:15 17 97 03/18/18 19:35 98.7 F 66 14 138/63 98 Intake and Output 03/19/18 03/19/18 03/19/18 07:59 15:59 23:59 Intake Total 100 / 100 450 / 450 0 / 0 Output Total 300 / 300 75 / 75 0 / 0 Balance -200 / -200 375 / 375 0 / 0 Intake: IV Fluids 100 / 100 450 / 450 0.9 % Sodium Chloride 1,000 ML 350 / 350 @ 50 mls/hr IVC .Q20H [facility] Rx#: [id number] Protonix 40 MG In 0.9 % Sodium 100 / 100 100 / 100 Chloride (Mini-Bag +) 100 ML @ 20 mls/hr IVC .Q5H [facility] Rx#: [id number] Oral 0 / 0 0 / 0 Output: Urine 0 / 0 Catheter 300 / 300 75 / 75 Other: Meal Lunch Percent of Meal Consumed 60% 60% Blood Glucose* 155 148 - General Appearance General appearance: Present: well-developed, well-nourished, chronically ill, fatigue, frail EENT: Present: ATNC, PERRL, mucous membranes moist Neck: Present: supple Respiratory: Present: course breath sounds Cardiology: Present: edema (trace of the hands and about trace to 1+ of the ankles bilaterally), irregular rhythm, normal S1, normal S2 Gastrointestinal: Present: normoactive bowel sounds, no tenderness, no guarding, obese Integumentary: Present: erythema (with LE wound and dressing in place. ), ecchymotic, chronic venous stasis Neurologic: Present: no focal deficit, no asterixis, alert and oriented x3 Musculoskeletal: Present: no deformities, no clubbing Psychiatric: Present: mood/affect appropriate, cooperative - Lab 03/22/18 02:55 03/22/18 02:55 Most recent lab results Calcium 8.2 mg/dL (8.6-10.3) L 03/19/18 04:59 Phosphorus 4.9 mg/dL (2.7-4.5) H 03/18/18 02:55 Magnesium 1.8 mg/dL (1.6-2.6) 03/18/18 02:55 Urine Creatinine 257 mg/dL 03/18/18 05:11 Urine Sodium 17.9 mEq/L 03/18/18 05:11 - Imaging Kidney/bladder ultrasound: report reviewed Additional Comments: Kidneys demonstrate normal cortical echogenicity. No evidence of hydronephrosis or intrarenal stones. There bilateral renal cortical cysts noted. There is a superior scratch the there is a right upper pole renal cyst measuring approximately 2 cm in diameter. There is a left upper pole renal cyst measuring approximately 36 x 24 x 28 mm in size. Consult Discharge Plan - Plan Referrals: Samuel Hyatt MD [Primary Care Provider] -
[2018-03-19] MEDS: Latanoprost 2.5 ML BOTTLE BOTH EYES SCH (22:30)
[2018-03-20] MEDS: Ipratropium/Albuterol Neb 3 ML IH SCH ×7 (00:02→23:24)
[2018-03-20 04:12] LABS: Basophils % 0.1 %; Immature Granulocytes % 1.2 % (0-4); Lymphocytes # 0.4 K/mcL (0.6-4.6); Lymphocytes % 2.1 %; Mean Corpuscular HGB Conc 34.4 g/dL (31.6-35.5); Mean Corpuscular Hemoglobin 30.6 pg (28.0-33.3); Mean Corpuscular Volume 88.9 fL (83.0-100.0); Mean Platelet Volume 9.2 fL (9.4-12.4); Monocytes % 4.5 %; Neutrophils # 19.6 K/mcL (1.6-8.9); Platelet Count 251 K/mcL (140-400); Red Cell Distribution Width 14.5 % (11.5-14.5); Segmented Neutrophils % 92.1 %
[2018-03-20 04:22] LABS: INR 5.7; Prothrombin Time 64.6 Seconds (9.4-12.1)
[2018-03-20 04:33] LABS: Albumin 2.4 g/dL (3.5-5.7); Calcium 7.9 mg/dL (8.6-10.3); Phosphorous 6.6 mg/dL (2.7-4.5); Potassium 5.5 mEq/L (3.5-5.1)
[2018-03-20] MEDS: 0.9 % Sodium Chloride 1,000 ML IVC SCH (05:21)
[2018-03-20] MEDS: Pantoprazole 40 MG VIAL IVP SCH ×2 (05:23→17:57)
[2018-03-20] MEDS: Budesonide/Formoterol 160/4.5 1 PUFF INH IH SCH ×2 (07:31→20:17)
--- NOTE | 2018-03-20 07:33 | Internal Med Progress Note ---
<Corey Cooper - Last Filed: 03/20/18 15:41> Hospitalist Progress Note - Encounter Date of Encounter: 03/20/18 Time of Encounter: 08:33 - Subjective Interval History: Patient seen and examined resting comfortably in bed. He reports ongoing right upper extremity swelling and shortness of breath today. Right upper extremity ultrasound was negative for DVT. Patient instructed to keep right upper extremity elevated. Renal function continues to decline. Nephrology following for possible need for dialysis. - Exam Vitals: Temp Pulse Resp BP Pulse Ox 97.8 F 90 18 137/76 96 03/20/18 03:46 03/20/18 03:46 03/20/18 03:54 03/20/18 03:46 03/20/18 03:54 Exam: General appearance: Present: cooperative, A&O X 3, no acute distress, awake, pleasant, resting comfortably in bed Head exam: Present: atraumatic, normocephalic Eye exam: Present: EOMI, conjuntiva pink, sclera anicteric ENT exam: Present: mucous membranes moist Neck exam: Present: supple, trachea midline. Absent: lymphadenopathy Respiratory exam: Present: Decreased breath sounds. Absent: accessory muscle use, rales, rhonchi, wheezes Cardiovascular exam: Present: irregularly irregular rhythm, +S1, +S2. Absent: diastolic murmur, gallop, rubs, systolic murmur GI/Abdominal exam: Present: normal bowel sounds, soft, no peritoneal signs. Absent: distended, tenderness Extremities exam: Present: 4+ pedal edema, RUE 4+ edema, warm, radial pulses palpable and symmetrical. Absent: calf tenderness, cyanotic Neurological exam: Present: CN II-XII intact, oriented X3, no focal deficits. Absent: pronater drift, facial droop, speech deficit Psychiatric exam: Present: normal affect, normal mood Skin exam: Present: dry, warm, no rash, R lower leg bandaged with break in skin - Assessment and Plan (1) Acute renal failure Current Visit: Yes Status: Suspected Assessment and Plan: Creatinine increased from baseline: 1.1 to 2.7 at [place]. Slowly worsening despite IV fluids Etiology lilkely from prenenal azotemia, BPH, dehydration, medication-induced Renal ultrasound unremarkable Mckee in place with noted hematuria on insertion. UA with trace esterase but large blood and tntc microscopic blood. Trend renal function, I&O's Neph following. Patient may need dialysis with temporary dialysis catheter placement on Thursday, defer to nephrology. Appreciate recommendations (2) Chronic atrial fibrillation Current Visit: No Status: Chronic Assessment and Plan: Continuing home digoxin and diltiazem Warfarin held, supratherapeutic ECHO showed LVEF was 65-70%, moderate as and mild tr. Estimated RVSP was elevated at 41. (3) COPD (chronic obstructive pulmonary disease) Current Visit: Yes Status: Chronic Assessment and Plan: Continue home meds and duonebs q4h Continue prednisone. (4) Edema Current Visit: No Status: Acute Assessment and Plan: Albumin 2.4, consider dialysis, defer to nephrology LE edema 4+ L>R, UE R>L ECHO EF 65-70% CXR: No pulm effusion or increasing congestion Right upper extremity ultrasound negative for DVT Patient encouraged to keep her right upper extremity elevated. (5) Urinary retention Current Visit: No Status: Acute Assessment and Plan: Mckee placed, hematuria noted at placement and on UA Worsening IRAIS Monitor I&O's (6) Esophageal ulcer with bleeding Current Visit: Yes Status: Acute Assessment and Plan: 1 episode of black, tarry emesis 03/18/18 EGD 03/19/18 revealed esophageal ulcers with coffee-ground material in gastric fundus Warfarin held due supratherapeutic INR Protonix IV GI following (7) Hyperkalemia Current Visit: Yes Status: Acute Assessment and Plan: Potassium 5.5 Continue low salt diet Continue monitoring DVT Prophylaxis: SCDs - Time Spent with Patient Total time spent is greater than 50% in coordination of care (as documented) at patient's floor/unit and/or counseling patient: Internal Medicine: Result - Labs CBC & Chem 7: 03/20/18 03:30 03/20/18 03:30 Labs: Short CBC 03/20/18 Range/Units 03:30 WBC 21.3 H (4.3-11.1) K/mcL Hgb 11.0 L (12.9-16.9) g/dL Hct 32.0 L (37.5-50.1) % Plt Count 251 (140-400) K/mcL Neutrophils # 19.6 H (1.6-8.9) K/mcL BMP 03/20/18 03:30 Sodium 139 Potassium 5.5 H Chloride 110 H Carbon Dioxide 17 L BUN 98 H Creatinine 3.92 H Glucose 138 H Calcium 7.9 L Liver Function 03/20/18 Range/Units 03:30 Albumin 2.4 L (3.5-5.7) g/dL - ABG Interpretation ABG results: PT/INR, D-dimer PT 64.6 Seconds (9.4-12.1) H* D 03/20/18 03:30 - Pulse Oximetry Interpretation Digit-Finger Pulse Oximetry Readin (3.5L O2 via NC) Consult Discharge Plan - Plan Referrals: Samuel Hyatt MD [Primary Care Provider] - <Cristiano Greene - Last Filed: 03/20/18 18:34> Hospitalist Progress Note - Exam Vitals: Temp Pulse Resp BP Pulse Ox 98.4 F 82 18 145/69 98 03/20/18 14:40 03/20/18 14:40 03/20/18 15:59 03/20/18 14:40 03/20/18 15:59 - Assessment and Plan (1) Chronic atrial fibrillation Current Visit: No Status: Chronic (2) COPD (chronic obstructive pulmonary disease) Current Visit: Yes Status: Chronic (3) Edema Current Visit: No Status: Acute (4) Urinary retention Current Visit: No Status: Acute (5) Acute renal failure Current Visit: Yes Status: Suspected (6) Esophageal ulcer with bleeding Current Visit: Yes Status: Acute (7) Hyperkalemia Current Visit: Yes Status: Acute - Time Spent with Patient Total time spent is greater than 50% in coordination of care (as documented) at patient's floor/unit and/or counseling patient: Internal Medicine: Result - Labs CBC & Chem 7: 03/20/18 03:30 03/20/18 03:30 Labs: Short CBC 03/20/18 Range/Units 03:30 WBC 21.3 H (4.3-11.1) K/mcL Hgb 11.0 L (12.9-16.9) g/dL Hct 32.0 L (37.5-50.1) % Plt Count 251 (140-400) K/mcL Neutrophils # 19.6 H (1.6-8.9) K/mcL BMP 03/20/18 03:30 Sodium 139 Potassium 5.5 H Chloride 110 H Carbon Dioxide 17 L BUN 98 H Creatinine 3.92 H Glucose 138 H Calcium 7.9 L Liver Function 03/20/18 Range/Units 03:30 Albumin 2.4 L (3.5-5.7) g/dL - ABG Interpretation ABG results: PT/INR, D-dimer PT 64.6 Seconds (9.4-12.1) H* D 03/20/18 03:30 - Attending Attestation I examined this patient and my medical decision-making was reviewed with the Resident Physician on 03/20/18. I agree with the documented findings, disposition and treatment plan as described except to the extent set forth below. Mr Mane is currently admitted for acute renal failure and esophageal ulcers with bleeding. He remains moderate to high risk due to potential for worsening clinical status. Mr Bean seems to have more abdominal distention today (? fluid). Edema about the same. Breathing is OK. He says he "is in a good mood." No fever or chills. No CP. Duplex negative for DVT RUE. Exam alert Comfortable in bed Mucus membranes dry Heart distant Lungs diminished. Some rhonchi noted Abd soft and distended. Nontender Edema persists Renal function worsened I/P 1. Acute renal failure - anticipate need for dialysis on Thursday 2. Esophageal ulcers. Further diagnoses and plan as above. <Corey Cooper - Last Filed: 03/20/18 15:41> (1) Acute renal failure Qualifiers: Acute renal failure type: with acute tubular necrosis Qualified Code(s): N17.0 - Acute kidney failure with tubular necrosis (3) COPD (chronic obstructive pulmonary disease) Qualifiers: COPD type: unspecified COPD Qualified Code(s): J44.9 - Chronic obstructive pulmonary disease, unspecified (4) Edema Qualifiers: Edema type: unspecified Qualified Code(s): R60.9 - Edema, unspecified <Cristiano Greene - Last Filed: 03/20/18 18:34> (2) COPD (chronic obstructive pulmonary disease) Qualifiers: COPD type: unspecified COPD Qualified Code(s): J44.9 - Chronic obstructive pulmonary disease, unspecified (3) Edema Qualifiers: Edema type: generalized Qualified Code(s): R60.1 - Generalized edema (5) Acute renal failure Qualifiers: Acute renal failure type: with acute tubular necrosis Qualified Code(s): N17.0 - Acute kidney failure with tubular necrosis
[2018-03-20 08:22] LABS: Digoxin 1.5 ng/mL (0.8-2.0)
[2018-03-20] MEDS: Diltiazem CD (24hr) 300 MG CAPSULE PO SCH (08:52)
[2018-03-20] MEDS: *HR* Digoxin 0.125 MG TABLET PO SCH (08:52)
[2018-03-20] MEDS: Aspirin Enteric Coated 81 MG Tablet PO SCH (08:53)
[2018-03-20] MEDS: predniSONE 20 MG TABLET PO SCH (08:53)
[2018-03-20] MEDS: Brinzolamide 1% 10 ML BOTTLE BOTH EYES SCH ×2 (08:54→20:54)
--- NOTE | 2018-03-20 11:45 | Nephrology Progress Note ---
Date of Encounter: 03/20/18 Time of Encounter: 11:30 - Assessment and Plan (1) IRAIS (acute kidney injury) Current Visit: Yes Status: Acute Progressively worsening SCr despite IVF, of which have not helped stabilize renal function, so I recommend stopping the IVF. He and I had a very detailed discussion of dialysis options, and he voiced that he is interested and would consent for temporary HD. However chronic dialysis may be a different opinion, but at least 2-3 HD treatments, he said, he would be open to this if needed. This pt remains high risk and with high degree of medical complex in terms of MDM and E/M. I recommend a low K+ diet this , plus avoidance of nephrotoxins and on Thursday to place a temporary HD catheter, or sooner if emergently needed. (2) Pneumonia Current Visit: No Status: Resolved Per primary. Qualifiers: Pneumonia type: due to unspecified organism Laterality: bilateral Lung location: lower lobe of lung Qualified Code(s): J18.1 - Lobar pneumonia, unspecified organism (3) Urinary retention Current Visit: No Status: Acute IMproved with Mckee cath in place. (4) UGI bleed Current Visit: Yes Status: Suspected Per primary. (5) Wound of right lower extremity Current Visit: Yes Status: Acute Continue to cover and change as needed. Qualifiers: Qualified Code(s): S81.801A - Unspecified open wound, right lower leg, initial encounter (6) Renal cysts, acquired, bilateral Current Visit: Yes Status: Acute Newly diagnosed and most likely are acquired simple renal cysts. Would recommend serial imaging in about 6 months to assess size and density. Subjective Principal diagnosis: IRAIS and PNA Interval history: Pt was s/e and he reported feeling tired and lack of appetite. He otherwise has no new major complaints. Objective - Vital Signs Vital signs: Vital Signs Temp Pulse Resp BP Pulse Ox 03/20/18 11:13 18 95 03/20/18 10:30 98.2 F 76 18 131/74 99 03/20/18 07:57 97.7 F 100 18 125/63 96 03/20/18 07:31 18 94 03/20/18 03:54 18 96 03/20/18 03:46 97.8 F 90 16 137/76 96 03/20/18 00:02 18 98 03/19/18 19:37 18 98 03/19/18 18:49 98.4 F 95 15 156/55 97 03/19/18 16:24 18 99 03/19/18 13:54 97.6 F 99 18 138/69 98 Intake and Output 03/19/18 03/20/18 03/20/18 23:59 07:59 15:59 Intake Total 0 / 0 250 / 250 100 / 100 Output Total 0 / 0 350 / 350 100 / 100 Balance 0 / 0 -100 / -100 0 / 0 Intake: IV Fluids 250 / 250 0.9 % Sodium Chloride 1,000 ML 250 / 250 @ 50 mls/hr IVC .Q20H [facility] Rx#: [id number] Oral 0 / 0 0 / 0 100 / 100 Output: Urine 0 / 0 Catheter 350 / 350 100 / 100 Other: Meal Breakfast Percent of Meal Consumed 60% 40% # Bowel Movements 0 Weight 90 kg Patient Weight 03/20/18 23:59 Weight 90 kg - General Appearance Exam: General appearance: Present: well-developed, well-nourished, chronically ill, fatigue, frail EENT: Present: ATNC, PERRL, mucous membranes moist Neck: Present: supple Respiratory: Present: course breath sounds Cardiology: Present: edema (trace of the hands and about 1+ edema of the ankles bilaterally), irregular rhythm, normal S1, normal S2 Gastrointestinal: Present: normoactive bowel sounds, no tenderness, no guarding, obese Integumentary: Present: erythema (with LE wound and dressing in place. ), ecchymotic, chronic venous stasis Neurologic: Present: no focal deficit, no asterixis, alert and oriented x3 Musculoskeletal: Present: no deformities, no clubbing Psychiatric: Present: mood/affect appropriate, cooperative - Lab 03/22/18 02:55 03/22/18 02:55 Most recent lab results Calcium 7.9 mg/dL (8.6-10.3) L 03/20/18 03:30 Phosphorus 6.6 mg/dL (2.7-4.5) H 03/20/18 03:30 Magnesium 1.8 mg/dL (1.6-2.6) 03/18/18 02:55 Urine Creatinine 257 mg/dL 03/18/18 05:11 Urine Sodium 17.9 mEq/L 03/18/18 05:11 Consult Discharge Plan - Plan Referrals: Samuel Hyatt MD [Primary Care Provider] -
[2018-03-20] MEDS: Latanoprost 2.5 ML BOTTLE BOTH EYES SCH (20:54)
[2018-03-21] MEDS: Ipratropium/Albuterol Neb 3 ML IH SCH ×6 (04:13→23:34)
[2018-03-21 05:52] LABS: Magnesium 2.2 mg/dL (1.6-2.6); Phosphorous 7.4 mg/dL (2.7-4.5)
[2018-03-21 05:54] LABS: Calcium 7.8 mg/dL (8.6-10.3); Potassium 5.6 mEq/L (3.5-5.1); Prothrombin Time 73.3 Seconds (9.4-12.1)
[2018-03-21 05:55] LABS: INR 6.5
[2018-03-21] MEDS: Pantoprazole 40 MG VIAL IVP SCH ×2 (06:14→20:09)
[2018-03-21 06:53] LABS: Hemoglobin 11.1 g/dL (12.9-16.9); Mean Corpuscular HGB Conc 33.6 g/dL (31.6-35.5); Mean Corpuscular Hemoglobin 29.9 pg (28.0-33.3); Mean Corpuscular Volume 88.9 fL (83.0-100.0); Mean Platelet Volume 9.1 fL (9.4-12.4); Platelet Count 319 K/mcL (140-400); Red Blood Count 3.71 M/mcL (4.19-5.50); Red Cell Distribution Width 14.6 % (11.5-14.5)
[2018-03-21 07:13] LABS: Albumin 2.6 g/dL (3.5-5.7); Albumin/Globulin Ratio 1.1 (1.1-2.2); Bilirubin,Direct 0.1 mg/dL (0.0-0.2); Bilirubin,Indirect 0.4 mg/dL (0.0-1.2); Bilirubin,Total 0.5 mg/dL (0.3-1.0); Globulin 2.3 g/dL (2.4-3.5); Total Protein 4.9 g/dL (6.4-8.9)
[2018-03-21] MEDS: Budesonide/Formoterol 160/4.5 1 PUFF INH IH SCH ×2 (07:54→20:36)
[2018-03-21] MEDS ORDERED: *HR* Phytonadione 5 MG TABLET PO ONE (08:00)
--- NOTE | 2018-03-21 08:02 | Internal Med Progress Note ---
<Cristiano Greene - Last Filed: 03/21/18 13:05> Hospitalist Progress Note - Exam Vitals: Temp Pulse Resp BP Pulse Ox 97.5 F L 82 16 120/72 98 03/21/18 10:54 03/21/18 10:54 03/21/18 11:18 03/21/18 10:54 03/21/18 11:18 - Assessment and Plan (1) Acute renal failure Current Visit: Yes Status: Suspected (2) Acute on chronic diastolic CHF (congestive heart failure) Current Visit: Yes Status: Acute (3) Chronic atrial fibrillation Current Visit: No Status: Chronic (4) COPD (chronic obstructive pulmonary disease) Current Visit: Yes Status: Chronic (5) Urinary retention Current Visit: No Status: Acute (6) Esophageal ulcer with bleeding Current Visit: Yes Status: Acute (7) Hyperkalemia Current Visit: Yes Status: Acute (8) Supratherapeutic INR Current Visit: Yes Status: Acute - Time Spent with Patient Total time spent is greater than 50% in coordination of care (as documented) at patient's floor/unit and/or counseling patient: Internal Medicine: Result - Labs CBC & Chem 7: 03/21/18 06:14 03/21/18 04:53 Labs: Short CBC 03/21/18 Range/Units 06:14 WBC 18.7 H (4.3-11.1) K/mcL Hgb 11.1 L (12.9-16.9) g/dL Hct 33.0 L (37.5-50.1) % Plt Count 319 (140-400) K/mcL BMP 03/21/18 04:53 Sodium 134 L Potassium 5.6 H Chloride 106 Carbon Dioxide 14 L BUN 130 H Creatinine 4.17 H Glucose 144 H Calcium 7.8 L Liver Function 03/21/18 Range/Units 06:14 Total Bilirubin 0.5 (0.3-1.0) mg/dL Direct Bilirubin 0.1 (0.0-0.2) mg/dL AST 14 (13-39) Units/L ALT 16 (7-52) Units/L Alkaline Phosphatase 50 (34-104) Units/L Albumin 2.6 L (3.5-5.7) g/dL - ABG Interpretation ABG results: PT/INR, D-dimer PT 73.3 Seconds (9.4-12.1) H* 03/21/18 04:53 Consult Discharge Plan - Plan Referrals: Samuel Hyatt MD [Primary Care Provider] - - Attending Attestation I examined this patient and my medical decision-making was reviewed with the Resident Physician on 03/21/18. I agree with the documented findings, disposition and treatment plan as described except to the extent set forth below. Mr Bean is currently admitted for acute renal failure. His renal function continues to worsen and K is elevated. He remains moderate to high risk due to potential for worsening clinical status. Mr Bean is more dyspneic today. His INR is very high. No fever or chills. No CP. Abd distended. Renal function worse today. Exam alert. Moderate respiratory distress Mucus membranes dry Heart distant and not tachy. Hard to hear Lungs with scattered rhonchi Abd distended Edema present I/P 1. Acute renal failure 2. Resp distress Further diagnoses and plan as above. <Corey Cooper - Last Filed: 03/21/18 17:08> Hospitalist Progress Note - Encounter Date of Encounter: 03/21/18 Time of Encounter: 10:10 - Subjective Interval History: Patient seen and examined resting comfortably in bed. He reports worsening shortness of breath today despite scheduled breathing treatments. Patient instructed to keep right upper extremity elevated. Renal function continues to decline. Patient remains on low potassium diet. Patient was given Kayexelate due to hyperkalemia Nephrology following for possible need for dialysis and temporary HD catheter placement on 03/22/18. Patient's INR was subtherapeutic today, vitamin K and FFP given. Nursing reports limited IV access. Power wand EPIV was placed with ultrasound guidance at bedside with Dr. Patel. - Exam Vitals: Temp Pulse Resp BP Pulse Ox 98 F 87 16 133/70 99 03/21/18 04:00 03/21/18 04:00 03/21/18 04:14 03/21/18 04:00 03/21/18 04:14 Exam: General appearance: Present: cooperative, A&O X 3, no acute distress, awake, pleasant, resting comfortably with increased work with breathing Head exam: Present: atraumatic, normocephalic Eye exam: Present: EOMI, conjuntiva pink, sclera anicteric ENT exam: Present: mucous membranes moist Neck exam: Present: supple, trachea midline. Absent: lymphadenopathy Respiratory exam: Present: Coarse breath sounds, rales, mild accessory muscle use. Absent: rhonchi, wheezes Cardiovascular exam: Present: irregularly irregular rhythm, +S1, +S2. Absent: diastolic murmur, gallop, rubs, systolic murmur GI/Abdominal exam: Present: normal bowel sounds, soft, no peritoneal signs. Absent: distended, tenderness Extremities exam: Present: 4+ pedal edema, BUE 4+ edema, warm, radial pulses palpable and symmetrical. Absent: calf tenderness, cyanotic Neurological exam: Present: CN II-XII intact, oriented X3, no focal deficits. Absent: facial droop, speech deficit Psychiatric exam: Present: normal affect, normal mood Skin exam: Present: dry, warm, no rash, R lower leg bandaged with break in skin - Assessment and Plan (1) Acute renal failure Current Visit: Yes Status: Suspected Assessment and Plan: Creatinine increased from baseline: 1.1 to 2.7 at [place]. Slowly worsening despite IV fluid administration. Fluids were discontinued due to worsening edema. IRAIS etiology likely from prenenal azotemia, BPH, dehydration, medication-induced Renal ultrasound unremarkable Mckee in place with noted hematuria on insertion. UA with trace esterase but large blood and tntc microscopic blood. Trend renal function, I&O's Neph following. Patient may need dialysis with temporary dialysis catheter placement on 03/22/18, defer to nephrology. Appreciate recommendations Coumadin was reversed due to supratherapeutic INR. (2) Acute on chronic diastolic CHF (congestive heart failure) Current Visit: Yes Status: Acute Assessment and Plan: Albumin 2.6, consider dialysis, defer to nephrology LE edema 4+ L>R, UE R>L CXR: No pulm effusion or increasing congestion Right upper extremity ultrasound negative for DVT Patient encouraged to keep his right upper extremity elevated. Echo 03/16/18 revealed LVEF 60-65%, mild RV dilation with normal function, moderate aortic stenosis, mild tricuspid regurg, mild pulmonary hypertension Patient unable to tolerate diuresis secondary to worsening renal function Trial BiPAP to help with fluid overload (3) Acute respiratory failure with hypoxia Current Visit: Yes Status: Acute Assessment and Plan: Likely secondary to fluid overloaded and the setting of acute renal failure and CHF exacerbation. ABG on 03/06/18 revealed pCO2 27 Continue bronchodilators, BiPAP prn, and supplemental oxygen Consider repeat ABG if respiratory function worsens (4) Supratherapeutic INR Current Visit: Yes Status: Acute Assessment and Plan: Patient takes Coumadin for chronic atrial fibrillation Coumadin has been held and INR level 6.5, likely due to recent antibiotic use Coumadin was reversed with vitamin K and FFP Trend INR Patient may need dialysis catheter placement tomorrow Continue close monitoring (5) Chronic atrial fibrillation Current Visit: No Status: Chronic Assessment and Plan: Continuing home digoxin and diltiazem Warfarin held, supratherapeutic INR, vitamin K and FFP given ECHO showed LVEF was 65-70%, moderate as and mild tr. Estimated RVSP was elevated at 41. (6) COPD (chronic obstructive pulmonary disease) Current Visit: Yes Status: Chronic Assessment and Plan: Continue home meds and duonebs q4h Continue prednisone. Trial BiPAP due to fluid overload Consider ABG if respiratory function declines (7) Esophageal ulcer with bleeding Current Visit: Yes Status: Acute Assessment and Plan: 1 episode of black, tarry emesis 03/18/18 EGD 03/19/18 revealed esophageal ulcers with coffee-ground material in gastric fundus Warfarin held due supratherapeutic INR, vitamin K and FFP given Continue Protonix IV GI following (8) Urinary retention Current Visit: No Status: Acute Assessment and Plan: Mckee placed, hematuria noted at placement and on UA Worsening IRAIS Monitor I&O's Nephrology following, appreciate recommendations (9) Hyperkalemia Current Visit: Yes Status: Acute Assessment and Plan: Potassium 5.6 Continue low salt diet Continue close monitoring, nephrology following for possible need for dialysis (10) Hypoalbuminemia Current Visit: Yes Status: Acute Assessment and Plan: Circuit Tester/ dietitian consulted for renal oral supplements DVT Prophylaxis: SCDs - Time Spent with Patient Total time spent is greater than 50% in coordination of care (as documented) at patient's floor/unit and/or counseling patient: Internal Medicine: Result - Labs CBC & Chem 7: 03/21/18 06:14 03/21/18 04:53 Labs: Short CBC 03/21/18 Range/Units 06:14 WBC 18.7 H (4.3-11.1) K/mcL Hgb 11.1 L (12.9-16.9) g/dL Hct 33.0 L (37.5-50.1) % Plt Count 319 (140-400) K/mcL BMP 03/21/18 04:53 Sodium 134 L Potassium 5.6 H Chloride 106 Carbon Dioxide 14 L BUN 130 H Creatinine 4.17 H Glucose 144 H Calcium 7.8 L Liver Function 03/20/18 03/21/18 Range/Units 03:30 06:14 Total Bilirubin 0.5 (0.3-1.0) mg/dL Direct Bilirubin 0.1 (0.0-0.2) mg/dL AST 14 (13-39) Units/L ALT 16 (7-52) Units/L Alkaline Phosphatase 50 (34-104) Units/L Albumin 2.4 L 2.6 L (3.5-5.7) g/dL - ABG Interpretation ABG results: PT/INR, D-dimer PT 73.3 Seconds (9.4-12.1) H* 03/21/18 04:53 - Pulse Oximetry Interpretation Digit-Finger Pulse Oximetry Readin (4L) Actions taken: placed on BiPAP Procedures: Internal Med - EJ/Peripheral Line Arm L Consent Obtained: written consent Time out performed: Yes Skin cleansed in sterile fashion: Yes IV secured and dressing applied: Yes Patient tolerated procedure: well, no complications Additional comments: See corresponding procedure note by Dr. Patel. <Cristiano Greene - Last Filed: 03/21/18 13:05> (1) Acute renal failure Qualifiers: Acute renal failure type: with acute tubular necrosis Qualified Code(s): N17.0 - Acute kidney failure with tubular necrosis (4) COPD (chronic obstructive pulmonary disease) Qualifiers: COPD type: unspecified COPD Qualified Code(s): J44.9 - Chronic obstructive pulmonary disease, unspecified <Corey Cooper - Last Filed: 03/21/18 17:08> (1) Acute renal failure Qualifiers: Acute renal failure type: with acute tubular necrosis Qualified Code(s): N17.0 - Acute kidney failure with tubular necrosis (6) COPD (chronic obstructive pulmonary disease) Qualifiers: COPD type: unspecified COPD Qualified Code(s): J44.9 - Chronic obstructive pulmonary disease, unspecified
[2018-03-21] MEDS: Aspirin Enteric Coated 81 MG Tablet PO SCH (08:41)
[2018-03-21] MEDS: predniSONE 20 MG TABLET PO SCH (08:41)
[2018-03-21] MEDS: Diltiazem CD (24hr) 300 MG CAPSULE PO SCH (08:42)
[2018-03-21] MEDS: *HR* Digoxin 0.125 MG TABLET PO SCH (08:42)
[2018-03-21] MEDS: Brinzolamide 1% 10 ML BOTTLE BOTH EYES SCH ×2 (09:26→21:59)
--- NOTE | 2018-03-21 13:01 | Nephrology Progress Note ---
Date of Encounter: 03/21/18 Time of Encounter: 11:45 - Assessment and Plan (1) IRAIS (acute kidney injury) Current Visit: Yes Status: Acute Progressively worsening SCr. I had a family meeting with the pt and his adult son: I reviewed the Pros/Cons, SE profile of HD, plus the need for a temporary HD catheter. He consented to proceed. Hyperkalemia: s/p kayexalate this AM. Continue the Low K+ (Renal) diet Discussed with the floor RN: limited IV access today. My colleague Dr. Patrick will be on-call starting tomorrow. Thank you. (2) Pneumonia Current Visit: No Status: Resolved Per primary. Qualifiers: Pneumonia type: due to unspecified organism Laterality: bilateral Lung location: lower lobe of lung Qualified Code(s): J18.1 - Lobar pneumonia, unspecified organism (3) Urinary retention Current Visit: No Status: Acute IMproved with Mckee cath in place. (4) UGI bleed Current Visit: Yes Status: Suspected Per primary. (5) Wound of right lower extremity Current Visit: Yes Status: Acute Continue to cover and change as needed. Qualifiers: Qualified Code(s): S81.801A - Unspecified open wound, right lower leg, initial encounter (6) Hyperkalemia Current Visit: Yes Status: Acute See above, re: kayexalate indicated today for hyperkalemia. (7) Renal cysts, acquired, bilateral Current Visit: Yes Status: Acute Newly diagnosed and most likely are acquired simple renal cysts. Would recommend serial imaging in about 6 months to assess size and density. Subjective Principal diagnosis: IRAIS and PNA Interval history: The patient was seen/examined. His son was present and had a thorough discussion regarding dialysis options. The pt affirmed feeling very short of breath with cough and swelling of the hands and feet. He affirmed having no appetite. Objective - Vital Signs Vital signs: Vital Signs Temp Pulse Resp BP Pulse Ox 03/21/18 11:18 16 98 03/21/18 10:54 97.5 F L 82 16 120/72 98 03/21/18 10:30 11 99 03/21/18 08:18 96.7 F L 96 14 126/77 100 03/21/18 07:54 16 96 03/21/18 04:14 16 99 03/21/18 04:00 98 F 87 15 133/70 95 03/21/18 00:07 97.9 F 84 15 108/63 97 03/20/18 23:24 16 98 03/20/18 20:17 18 96 03/20/18 20:00 98.2 F 80 16 116/56 94 03/20/18 15:59 18 98 03/20/18 14:40 98.4 F 82 18 145/69 98 Intake and Output 03/20/18 03/21/18 03/21/18 23:59 07:59 15:59 Intake Total 380 / 380 200 / 200 20 / 20 Output Total 0 / 0 250 / 250 200 / 200 Balance 380 / 380 -50 / -50 -180 / -180 Intake: Oral 380 / 380 200 / 200 20 / 20 Output: Urine 0 / 0 200 / 200 Catheter 250 / 250 0 / 0 Other: Meal Dinner Breakfast Percent of Meal Consumed 20% 0% # Bowel Movements 0 0 Weight 91 kg Patient Weight 03/21/18 23:59 Weight 91 kg - General Appearance Exam: General appearance: Present: well-developed, well-nourished, chronically ill, fatigue, frail EENT: Present: ATNC, PERRL, mucous membranes moist Neck: Present: supple Respiratory: Present: course breath sounds with crackles in the bases Cardiology: Present: edema (1+ hand edena and about 1+ edema of the ankles bilaterally), irregular rhythm, normal S1, normal S2 Gastrointestinal: Present: normoactive bowel sounds, no tenderness, no guarding, obese Integumentary: Present: erythema (with LE wound and dressing in place. ), ecchymotic, chronic venous stasis Neurologic: Present: no focal deficit, no asterixis, alert and oriented x3 Musculoskeletal: Present: no deformities, no clubbing Psychiatric: Present: mood/affect appropriate, cooperative - Lab 03/22/18 02:55 03/22/18 02:55 Most recent lab results Calcium 7.8 mg/dL (8.6-10.3) L 03/21/18 04:53 Phosphorus 7.4 mg/dL (2.7-4.5) H 03/21/18 04:53 Magnesium 2.2 mg/dL (1.6-2.6) 03/21/18 04:53 Urine Creatinine 257 mg/dL 03/18/18 05:11 Urine Sodium 17.9 mEq/L 03/18/18 05:11 Consult Discharge Plan - Plan Referrals: Samuel Hyatt MD [Primary Care Provider] -
--- NOTE | 2018-03-21 14:31 | Procedure Note ---
<Ron Patel - Last Filed: 03/21/18 14:26> Date of procedure: 03/21/18 Pre-op diagnosis: limited IV access Post-op diagnosis: same Procedure: A time-out was completed verifying correct patient, procedure, site, positioning, and special equipment if applicable. The patient was placed in a dependent position appropriate for extended peripheral IV placement (power wand) based on the vein to be cannulated. The patients left antecubital region vein was prepped and draped in sterile fashion. 1% Lidocaine was used to anesthetize the surrounding skin area. A power wide catheter was introduced into the the Antecubital vein using the Seldinger technique and under ultrasound guidance. The catheter was threaded smoothly over the guide wire and appropriate blood return was obtained. Each lumen of the catheter was evacuated of air and flushed with sterile saline. The catheter had a sterile dressing applied. Perfusion to the extremity distal to the point of catheter insertion was checked and found to be adequate. Dr. Greene was available for the entire procedure. The patient tolerated the procedure well and there were no complications. Anesthesia: local Surgeon: Ron Patel Was there an access services assistant present: Yes Ict Development Manager: Corey Cooper Estimated blood loss (cc): 5 IV fluids (cc): 0 Urine output (cc): 0 Specimen: n/a Pathology: none sent Condition: stable Disposition: floor <Cristiano Greene - Last Filed: 03/21/18 18:13> - Attending Attestation Agree with above procedure.
[2018-03-21] MEDS ORDERED: 0.9 % Sodium Chloride 250 ML ONE (15:34)
[2018-03-21 19:22] LABS: Kappa Qnt Free Light Chains 14.9 mg/dL (0.33-1.94); Lambda Qnt Free Light Chains 7.79 mg/dL (0.57-2.63)
[2018-03-21 20:55] LABS: INR 2.7; Prothrombin Time 30.2 Seconds (9.4-12.1)
[2018-03-21] MEDS: Latanoprost 2.5 ML BOTTLE BOTH EYES SCH (21:59)
[2018-03-22] MEDS ORDERED: *HR* Phytonadione 5 MG TABLET PO ONE (00:25)
[2018-03-22 03:11] LABS: Hematocrit 24.3 % (37.5-50.1); Mean Corpuscular HGB Conc 34.2 g/dL (31.6-35.5); Mean Corpuscular Hemoglobin 30.4 pg (28.0-33.3); Mean Platelet Volume 9.2 fL (9.4-12.4); Platelet Count 283 K/mcL (140-400); Red Blood Count 2.73 M/mcL (4.19-5.50); Red Cell Distribution Width 14.4 % (11.5-14.5)
[2018-03-22 03:19] LABS: INR 2.4; Prothrombin Time 26.7 Seconds (9.4-12.1)
[2018-03-22 03:27] LABS: Hemoglobin 8.3 g/dL (12.9-16.9)
[2018-03-22] MEDS: Ipratropium/Albuterol Neb 3 ML IH SCH ×6 (03:31→23:39)
[2018-03-22 03:34] LABS: Blood Urea Nitrogen > 130 mg/dL (8-23); Calcium 7.6 mg/dL (8.6-10.3); Carbon Dioxide 18 mEq/L (23-29); Chloride 104 mEq/L (98-107); Glucose 134 mg/dL (70-105); Potassium 5.2 mEq/L (3.5-5.1); Sodium 133 mEq/L (136-145); eGFR For Non-African Americans 13 (> 60)
[2018-03-22] MEDS ORDERED: 0.9 % Sodium Chloride 250 ML ONE (03:59)
[2018-03-22 06:42] LABS: Urine Collection Duration RANDOM hr; Urine Collection Volume RANDOM mL
[2018-03-22] MEDS: Pantoprazole 40 MG VIAL IVP SCH (06:46)
[2018-03-22] MEDS ORDERED: 0.9 % Sodium Chloride 250 ML IVC PRN (06:49)
[2018-03-22 07:53] LABS: ANA IgG by ELISA NONE DETECTED (None Detected); Complement Component 3 5 mg/dL (88-201); Complement Component 4 27 mg/dL (10-40)
[2018-03-22 07:54] LABS: Myeloperoxidase Ab 0 AU/mL (0-19); Serine Protease-3 Antibody 1 AU/mL (0-19)
[2018-03-22] MEDS: Budesonide/Formoterol 160/4.5 1 PUFF INH IH SCH ×2 (08:15→20:07)
[2018-03-22] MEDS ORDERED: Heparin 1,000 UNITS/500 mL 500 ML ONE (08:22)
[2018-03-22] MEDS ORDERED: *HR* Heparin 5,000 UNIT/ML VIAL ONE (09:20)
--- NOTE | 2018-03-22 09:26 | Procedure Note ---
Date of procedure: 03/22/18 Pre-op diagnosis: dialysis need Post-op diagnosis: same Procedure: Temporary HD catheter Date: 03/22/2018 Time: 0900 Indication: Hemodynamic monitoring/Intravenous access Resident: Dakotah Ramirez DO Attending: Dr. Amelie Flores A time-out was completed verifying correct patient, procedure, site, positioning, and special equipment if applicable. The patient was placed in a dependent position appropriate for central line placement based on the vein to be cannulated. The patients right neck was prepped and draped in sterile fashion. 1% Lidocaine was used to anesthetize the surrounding skin area. A triple lumen 15-[place]ican catheter was introduced into the the internal jugular vein using the Seldinger technique and under ultrasound guidance. The catheter was threaded smoothly over the guide wire and appropriate blood return was obtained. Each lumen of the catheter was evacuated of air and flushed with sterile saline. The catheter was then sutured in place to the skin and a sterile dressing applied. Perfusion to the extremity distal to the point of catheter insertion was checked and found to be adequate. Dr. Amelie Flores was present for the entire procedure. Estimated Blood Loss: 0ml The patient tolerated the procedure well and there were no complications. Anesthesia: local Surgeon: Dakotah Ramirez Was there an carpenter assistant present: Yes Bender Machine: Amelie Flores Estimated blood loss (cc): 0 Specimen: none Condition: stable Disposition: no change
[2018-03-22] MEDS: predniSONE 20 MG TABLET PO SCH (09:31)
[2018-03-22] MEDS: Diltiazem CD (24hr) 300 MG CAPSULE PO SCH (09:32)
[2018-03-22] MEDS: Brinzolamide 1% 10 ML BOTTLE BOTH EYES SCH ×2 (09:32→20:56)
[2018-03-22] MEDS: Aspirin Enteric Coated 81 MG Tablet PO SCH (09:32)
[2018-03-22] MEDS: *HR* Digoxin 0.125 MG TABLET PO SCH (09:37)
--- NOTE | 2018-03-22 09:38 | Internal Med Progress Note ---
<RaymondJl T - Last Filed: 03/22/18 15:07> Hospitalist Progress Note - Encounter Date of Encounter: 03/22/18 Time of Encounter: 09:00 - Subjective Interval History: Laying in bed. No new complaints today, says breathing is a little better today. Denies abdominal pain, further emesis, similar prior emesis, chest pain, blurry vision/diplopia, dizzy/lightheadedness, or syncope. - Exam Vitals: Temp Pulse Resp BP Pulse Ox 97.6 F 84 20 117/64 100 03/22/18 04:22 03/22/18 04:22 03/22/18 08:15 03/22/18 04:22 03/22/18 08:15 Exam: General: Awake, alert, appears stated age, no acute distress or signs of toxicity HEENT: EOMi, pupils equal/round, mucus membranes moist, R IJ temp dialysis cath in place. Cardiac: Regular rate, irregularly irregular rhythm, S1/S2 present but distant, no murmurs, heaves, thrills appreciated, radial pulse 2+ bilaterally, normal capillary refill, 3+ LE edema L>R, UE R>L Chest: Symmetric chest rise, non tender Pulmonary: Decreased air movement, normal resp effort, diffuse end exp wheezes, no rhonchi, rales appreciated Abdominal: Soft, non-tender, no distention, guarding, rebound tenderness, or rigidity Neuro: AOx3, CN grossly intact Psych: Normal affect Integumentary: [place], warm, dry, R lower leg bandaged with break in skin, clear drainage present - Assessment and Plan (1) Acute on chronic diastolic CHF (congestive heart failure) Current Visit: Yes Status: Acute Assessment and Plan: Albumin 2.6, consider dialysis, defer to nephrology LE edema 4+ L>R, UE R>L CXR: No pulm effusion or increasing congestion Right upper extremity ultrasound negative for DVT Patient encouraged to keep his right upper extremity elevated. Echo 03/16/18 revealed LVEF 60-65%, mild RV dilation with normal function, moderate aortic stenosis, mild tricuspid regurg, mild pulmonary hypertension Patient unable to tolerate diuresis secondary to worsening renal function Dialysis today (2) Acute respiratory failure with hypoxia Current Visit: Yes Status: Acute Assessment and Plan: Likely secondary to fluid overloaded and the setting of acute renal failure and CHF exacerbation. ABG on 03/06/18 revealed pCO2 27 Continue bronchodilators, BiPAP prn, and supplemental oxygen Consider repeat ABG if respiratory function worsens (3) Acute renal failure Current Visit: Yes Status: Suspected Assessment and Plan: Creatinine increased from baseline: 1.1 to 2.7 at [place]. Slowly worsening despite IV fluid administration. Fluids were discontinued due to worsening edema. IRAIS etiology likely from prenenal azotemia, BPH, dehydration, medication-induced Renal ultrasound unremarkable Mckee in place with noted hematuria on insertion. UA with trace esterase but large blood and tntc microscopic blood. Trend renal function, I&O's Cr 4.38, BUN >130 Neph following. Temp RIJ dialysis cath placed Dialysis today per neph Coumadin was reversed due to supratherapeutic INR. (4) Urinary retention Current Visit: No Status: Acute Assessment and Plan: -Mckee placed, hematuria noted at placement and on UA -Worsening IRAIS -Monitor I&O's -Nephrology following -Temp RIJ dialysis cath placed today -Dialysis today per neph (5) Chronic atrial fibrillation Current Visit: No Status: Chronic Assessment and Plan: -Continuing home digoxin and diltiazem -Warfarin held, supratherapeutic INR, vitamin K and FFP (3/4) given -Most recent INR 2.4 -ECHO showed LVEF was 65-70%, moderate as and mild tr. Estimated RVSP was elevated at 41. (6) COPD (chronic obstructive pulmonary disease) Current Visit: Yes Status: Chronic Assessment and Plan: -Continue home meds and duonebs q4h -Continue prednisone. -Consider ABG if respiratory function declines (7) Esophageal ulcer with bleeding Current Visit: Yes Status: Acute Assessment and Plan: 1 episode of black, tarry emesis 03/18/18 EGD 03/19/18 revealed esophageal ulcers with coffee-ground material in gastric fundus Warfarin held due supratherapeutic INR, vitamin K and FFP given Continue Protonix IV GI following (8) Hyperkalemia Current Visit: Yes Status: Acute Assessment and Plan: Potassium 5.2 Continue low salt diet Continue close monitoring Nephrology following Dialysis today (9) Supratherapeutic INR Current Visit: Yes Status: Acute (10) Hypoalbuminemia Current Visit: Yes Status: Acute Assessment and Plan: [place]/ dietitian consulted for renal oral supplements DVT Prophylaxis: SCDs as anticoag held - Time Spent with Patient Total time spent is greater than 50% in coordination of care (as documented) at patient's floor/unit and/or counseling patient: less than 15 minutes Plan of Care Discussed with: patient Internal Medicine: Result - Labs CBC & Chem 7: 03/22/18 02:55 03/22/18 02:55 Labs: Short CBC 03/22/18 Range/Units 02:55 WBC 19.2 H (4.3-11.1) K/mcL Hgb 8.3 L D (12.9-16.9) g/dL Hct 24.3 L (37.5-50.1) % Plt Count 283 (140-400) K/mcL BMP 03/22/18 02:55 Sodium 133 L Potassium 5.2 H Chloride 104 Carbon Dioxide 18 L BUN > 130 H Creatinine 4.38 H Glucose 134 H Calcium 7.6 L - ABG Interpretation ABG results: PT/INR, D-dimer PT 26.7 Seconds (9.4-12.1) H 03/22/18 02:55 Consult Discharge Plan - Plan Referrals: Samuel Hyatt MD [Primary Care Provider] - <Cristiano Greene - Last Filed: 03/22/18 16:26> Hospitalist Progress Note - Exam Vitals: Temp Pulse Resp BP Pulse Ox 98.3 F 76 16 170/90 92 03/22/18 14:13 03/22/18 14:13 03/22/18 14:13 03/22/18 14:13 03/22/18 14:13 - Assessment and Plan (1) Chronic atrial fibrillation Current Visit: No Status: Chronic (2) COPD (chronic obstructive pulmonary disease) Current Visit: Yes Status: Chronic (3) Urinary retention Current Visit: No Status: Acute (4) Acute renal failure Current Visit: Yes Status: Suspected (5) Esophageal ulcer with bleeding Current Visit: Yes Status: Acute (6) Hyperkalemia Current Visit: Yes Status: Acute (7) Supratherapeutic INR Current Visit: Yes Status: Acute (8) Acute on chronic diastolic CHF (congestive heart failure) Current Visit: Yes Status: Acute (9) Acute respiratory failure with hypoxia Current Visit: Yes Status: Acute (10) Hypoalbuminemia Current Visit: Yes Status: Acute (11) Anasarca Current Visit: Yes Status: Acute - Time Spent with Patient Total time spent is greater than 50% in coordination of care (as documented) at patient's floor/unit and/or counseling patient: Internal Medicine: Result - Labs CBC & Chem 7: 03/22/18 02:55 03/22/18 02:55 Labs: Short CBC 03/22/18 Range/Units 02:55 WBC 19.2 H (4.3-11.1) K/mcL Hgb 8.3 L D (12.9-16.9) g/dL Hct 24.3 L (37.5-50.1) % Plt Count 283 (140-400) K/mcL BMP 03/22/18 02:55 Sodium 133 L Potassium 5.2 H Chloride 104 Carbon Dioxide 18 L BUN > 130 H Creatinine 4.38 H Glucose 134 H Calcium 7.6 L - ABG Interpretation ABG results: PT/INR, D-dimer PT 26.7 Seconds (9.4-12.1) H 03/22/18 02:55 - Impressions Impressions Guidance Ultrasound 03/22/18 00:00 IMPRESSION: Successful ultrasound guided non-tunneled temporary HD catheter placement. D/ /22/2018 12:31:53 Amelie Flores MD / Anaya Zaldivar Interpreting Provider: Amelie Flores MD Insertion Non-Tunneled Catheter 03/22/18 00:00 IMPRESSION: Successful ultrasound guided non-tunneled temporary HD catheter placement. D/ /22/2018 12:31:53 Amelie Flores MD / Anaya Zaldivar Interpreting Provider: Amelie Flores MD Chest X-Ray 03/22/18 09:26 IMPRESSION: Hemodialysis catheter placement with tips in the SVC. No pneumothorax. Small right pleural effusion with mild right basilar atelectasis. D/ : / 03/22/2018 09:50:20 Ryan Dhaliwal MD / Anaya Zaldivar Interpreting Provider: Ryan Dhaliwal MD - Attending Attestation I examined this patient and my medical decision-making was reviewed with the Resident Physician on 03/21/18. I agree with the documented findings, disposition and treatment plan as described except to the extent set forth below. Mr Bean is currently admitted for acute renal failure. He is starting dialysis today. He remains moderate to high risk due to potential for worsening clinical status. Mr Bean is more dyspneic today. He had to lie down for dialysis catheter. He is now on bipap. No fever or chills. Says he feels OK. No CP at this time. No GI issues. Exam alert Mod resp distress. On bipap now. Mucus membranes dry Heart irreg and distant. Diminished breath sounds Significant edema bilaterally Abd soft and distended I/P 1. IRAIS - to start dialysis today 2. anasarca 3. Hypoxic resp failure due to pulmonary edema from fluid overload Further diagnoses and plan as above. <Jl Andrade - Last Filed: 03/22/18 15:07> (3) Acute renal failure Qualifiers: Acute renal failure type: with acute tubular necrosis Qualified Code(s): N17.0 - Acute kidney failure with tubular necrosis (6) COPD (chronic obstructive pulmonary disease) Qualifiers: COPD type: unspecified COPD Qualified Code(s): J44.9 - Chronic obstructive pulmonary disease, unspecified <Cristiano Greene - Last Filed: 03/22/18 16:26> (2) COPD (chronic obstructive pulmonary disease) Qualifiers: COPD type: unspecified COPD Qualified Code(s): J44.9 - Chronic obstructive pulmonary disease, unspecified (4) Acute renal failure Qualifiers: Acute renal failure type: with acute tubular necrosis Qualified Code(s): N17.0 - Acute kidney failure with tubular necrosis
--- NOTE | 2018-03-22 12:35 | Nephrology Progress Note ---
Addendum entered and electronically signed by Kendall Patrick MD 03/22/18 23:03: I examined this patient and discussed the medical decision-making with YOEL Pardo. I agree with the documented findings, disposition and treatment plan as described except to the extent set forth below. Patient was seen on dialysis. Original Note: Date of Encounter: 03/22/18 Time of Encounter: 12:32 - Assessment and Plan (1) IRAIS (acute kidney injury) Current Visit: Yes Status: Acute Temp line placed today. Hopeful for signs of renal recovery. Scr 4.38 and GFR is 13. Avoid nephrotoxins and renal dose. Strict I/O. (2) Pneumonia Current Visit: No Status: Resolved Per primary. Qualifiers: Pneumonia type: due to unspecified organism Laterality: bilateral Lung location: lower lobe of lung Qualified Code(s): J18.1 - Lobar pneumonia, unspecified organism (3) Urinary retention Current Visit: No Status: Acute Resolved, Mckee cath in place. (4) UGI bleed Current Visit: Yes Status: Suspected Per primary. (5) Wound of right lower extremity Current Visit: Yes Status: Acute Continue to cover and change as needed. Qualifiers: Qualified Code(s): S81.801A - Unspecified open wound, right lower leg, initial encounter Subjective Principal diagnosis: worsening renal function Interval history: Seen and examined, is on BiPap, tolerating well. Denies nausea or vomiting. Denies chest pain, admits to shortness of breath. Objective - Vital Signs Vital signs: Vital Signs Temp Pulse Resp BP Pulse Ox 03/22/18 11:13 16 100 03/22/18 10:46 96.6 F L 84 16 108/70 100 03/22/18 08:15 20 100 03/22/18 07:45 98 03/22/18 07:10 97.8 F 84 20 111/87 98 03/22/18 04:22 97.6 F 84 18 117/64 99 03/22/18 04:17 97.6 F 94 18 128/66 96 03/22/18 03:31 18 96 03/22/18 00:15 97.7 F 93 14 105/57 99 03/21/18 23:34 18 99 03/21/18 20:38 98.0 F 85 18 122/61 100 03/21/18 20:36 21 98 03/21/18 18:45 97.8 F 103 20 117/71 99 03/21/18 18:30 97.8 F 82 20 107/79 99 03/21/18 16:40 97.8 F 20 118/68 03/21/18 16:37 97.7 F 82 20 127/75 99 03/21/18 16:06 16 99 03/21/18 15:58 97.5 F L 82 20 119/73 99 03/21/18 15:43 97.6 F 83 16 115/74 100 03/21/18 14:27 96.5 F L 83 18 123/79 97 Intake and Output 03/21/18 03/22/18 03/22/18 23:59 07:59 15:59 Intake Total 486 / 486 0 / 0 325 / 325 Output Total 250 / 250 100 / 100 Balance 486 / 486 -250 / -250 225 / 225 Intake: Oral 0 / 0 0 / 0 Blood Product 486 / 486 0 / 0 325 / 325 Plasma Unit [id number] 236 / 236 Plasma Unit [id number] 0 / 0 325 / 325 Plasma Unit [id number] 250 / 250 Output: Urine 0 / 0 Catheter 250 / 250 100 / 100 Other: Meal Dinner npo Percent of Meal Consumed 5% Stool Size Small Stool Characteristics Mucoid # Bowel Movements 1 Weight 91.2 kg Blood Glucose* 133 114 Patient Weight 03/22/18 23:59 Weight 91.2 kg - General Appearance General appearance: Present: well-developed, well-nourished EENT: Present: ATNC, hearing intact, vision intact Neck: Present: supple Respiratory: Present: clear Cardiology: Present: normal S1, normal S2 Dialysis Vascular Access: Venous Catheter (Temp line, DRSG C/D/I) Gastrointestinal: Present: normoactive bowel sounds, no tenderness, no guarding Integumentary: Present: no rash, warm and dry Neurologic: Present: alert and oriented x3 Psychiatric: Present: mood/affect appropriate, cooperative - Lab 03/22/18 02:55 03/22/18 02:55 Most recent lab results Calcium 7.6 mg/dL (8.6-10.3) L 03/22/18 02:55 Phosphorus 7.4 mg/dL (2.7-4.5) H 03/21/18 04:53 Magnesium 2.2 mg/dL (1.6-2.6) 03/21/18 04:53 Urine Creatinine 257 mg/dL 03/18/18 05:11 Urine Sodium 17.9 mEq/L 03/18/18 05:11 Urine Total Protein SEE NOTE mg/d (10-140) 03/18/18 17:30 Consult Discharge Plan - Plan Referrals: Samuel Hyatt MD [Primary Care Provider] -
[2018-03-22] MEDS ORDERED: 0.9 % Sodium Chloride 1,000 ML ONE (15:03)
[2018-03-22] MEDS ORDERED: *HR* Warfarin 1 MG TABLET PO ONE (18:00)
[2018-03-22 18:13] LABS: Alpha 2 Globulin (PEP) 0.91 g/dL (0.48-1.05)
[2018-03-22] MEDS: Latanoprost 2.5 ML BOTTLE BOTH EYES SCH (20:55)
[2018-03-22 23:00] LABS: INR 1.8
[2018-03-23] MEDS: Ipratropium/Albuterol Neb 3 ML IH SCH ×6 (03:57→23:25)
[2018-03-23] MEDS ORDERED: 0.9 % Sodium Chloride 1,000 ML IVC SCH (04:00)
[2018-03-23 05:48] LABS: Mean Corpuscular Hemoglobin 30.8 pg (28.0-33.3); Mean Corpuscular Volume 88.1 fL (83.0-100.0); Mean Platelet Volume 9.6 fL (9.4-12.4); Platelet Count 326 K/mcL (140-400); Red Blood Count 2.27 M/mcL (4.19-5.50); Red Cell Distribution Width 14.6 % (11.5-14.5)
[2018-03-23 05:59] LABS: INR 1.6; Prothrombin Time 17.5 Seconds (9.4-12.1)
[2018-03-23 06:12] LABS: Blood Urea Nitrogen > 130 mg/dL (8-23); Calcium 7.4 mg/dL (8.6-10.3); Carbon Dioxide 20 mEq/L (23-29); Chloride 102 mEq/L (98-107); Glucose 140 mg/dL (70-105); Potassium 5.2 mEq/L (3.5-5.1); Sodium 134 mEq/L (136-145); eGFR For Non-African Americans 16 (> 60)
[2018-03-23] MEDS ORDERED: 0.9 % Sodium Chloride 1,000 ML ONE (07:03)
--- NOTE | 2018-03-23 07:24 | Internal Med Progress Note ---
<RaymondJl Chito - Last Filed: 03/23/18 11:51> Hospitalist Progress Note - Encounter Date of Encounter: 03/23/18 Time of Encounter: 07:40 - Subjective Interval History: Laying in bed. Says breathing requiring a little more effort today. Did not want to wear BiPAP last night. Complains of suprapubic abdominal pain today. Mckee in place. Denies further emesis, similar prior emesis, cough, chest pain, blurry vision/diplopia, dizzy/lightheadedness, or syncope. - Exam Vitals: Temp Pulse Resp BP Pulse Ox 97.4 F L 86 17 155/74 98 03/23/18 07:17 03/23/18 07:17 03/23/18 07:17 03/23/18 07:17 03/23/18 07:17 Exam: General: Awake, alert, appears stated age, no acute distress or signs of toxicity HEENT: EOMi, pupils equal/round, mucus membranes moist, R IJ temp dialysis cath in place. Cardiac: Regular rate, irregularly irregular rhythm, S1/S2 present but distant, no murmurs, heaves, thrills appreciated, radial pulse 2+ bilaterally, normal capillary refill, 3+ LE edema L>R, UE R>L Chest: Symmetric chest rise, non tender Pulmonary: Decreased air movement, normal resp effort, scattered end exp wheezes, no rhonchi, rales appreciated Abdominal: Soft, mildy tender to palpation suprapubically, no distention, guarding, rebound tenderness, or rigidity Neuro: AOx3, CN grossly intact Psych: Normal affect Integumentary: [place], warm, dry, R lower leg bandaged with break in skin, clear drainage present - Assessment and Plan (1) Acute renal failure Current Visit: Yes Status: Suspected Assessment and Plan: Creatinine increased from baseline: 1.1 to 2.7 at [place]. Slowly worsening despite IV fluid administration. Fluids were discontinued due to worsening edema. IRAIS etiology likely from prenenal azotemia, BPH, dehydration, medication-induced Renal ultrasound unremarkable Mckee in place with noted hematuria on insertion. UA with trace esterase but large blood and tntc microscopic blood. Trend renal function, I&O's Cr 4.38, BUN >130 on 03/22/18 Neph following and appreciate their recs. Temp RIJ dialysis cath placed 03/22/18 Dialysis started 03/22/18 Renal function minimally improved today after dialysis, Cr 3.56, BUN >130, K 5.2 Dialysis today (2) Acute on chronic diastolic CHF (congestive heart failure) Current Visit: Yes Status: Acute Assessment and Plan: Albumin 2.6, consider dialysis, defer to nephrology LE edema 4+ L>R, UE R>L CXR: No pulm effusion or increasing congestion Right upper extremity ultrasound negative for DVT Patient encouraged to keep his right upper extremity elevated. Echo 03/16/18 revealed LVEF 60-65%, mild RV dilation with normal function, moderate aortic stenosis, mild tricuspid regurg, mild pulmonary hypertension Patient unable to tolerate diuresis secondary to worsening renal function Dialysis yesterday Breathing taking more effort today. Anasarca unchanged from yst. (3) Acute respiratory failure with hypoxia Current Visit: Yes Status: Acute Assessment and Plan: Likely secondary to fluid overloaded and the setting of acute renal failure and CHF exacerbation. ABG on 03/06/18 revealed pCO2 27 Continue bronchodilators, BiPAP prn, and supplemental oxygen Consider repeat ABG if respiratory function worsens (4) Urinary retention Current Visit: No Status: Acute Assessment and Plan: -Mckee placed, hematuria noted at placement and on UA -Worsening IRAIS -Monitor I&O's -Nephrology following -Temp RIJ dialysis cath placed 03/22/30 -Dialysis started yesterday -Suprapubic pain today along with increasing leukocytosis, will get UA (5) Chronic atrial fibrillation Current Visit: No Status: Chronic Assessment and Plan: -Continuing home digoxin and diltiazem -03/22/30 warfarin held, supratherapeutic INR, vitamin K and FFP (3/4) given -Most recent INR 1.6 -ECHO showed LVEF was 65-70%, moderate as and mild tr. Estimated RVSP was elevated at 41. -Warfarin restarted last night. (6) COPD (chronic obstructive pulmonary disease) Current Visit: Yes Status: Chronic Assessment and Plan: -Continue home meds and duonebs q4h -DC prednisone. -Consider ABG if respiratory function declines (7) Esophageal ulcer with bleeding Current Visit: Yes Status: Acute Assessment and Plan: 1 episode of black, tarry emesis 03/18/18 EGD 03/19/18 revealed esophageal ulcers with coffee-ground material in gastric fundus Warfarin held due supratherapeutic INR, vitamin K and FFP given on 03/22/18 PPI switched from IV to PO GI following Warfarin restarted last night and most recent INR 1.6 Did have drop in Hgb from 8.3 to 7 today after dialysis. Hgb 11.1 2 days ago (03/21/18) Will type and screen today if possible transfusion needed Spoke to GI about possible re scope with drop in Hgb (8) Hyperkalemia Current Visit: Yes Status: Acute Assessment and Plan: Potassium 5.2 Continue low salt diet Continue close monitoring Nephrology following Dialysis yesterday, no change in K after dialysis (9) Supratherapeutic INR Current Visit: Yes Status: Resolved Assessment and Plan: Patient takes Coumadin for chronic atrial fibrillation Coumadin has been held and INR level 6.5, likely due to recent antibiotic use Coumadin was reversed with vitamin K and FFP on 03/22/18 Trend INR, most recent 1.6 and warfarin resumed Continue close monitoring (10) Hypoalbuminemia Current Visit: Yes Status: Acute Assessment and Plan: 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 Drier Machine Operator/ dietitian consulted for renal oral supplements (11) Anasarca Current Visit: Yes Status: Acute Assessment and Plan: -Neph following -Dialysis began 03/22/18 -Renal function not tolerate additional diuretics at this time DVT Prophylaxis: SCDs as warfarin not therapeutic yet - Time Spent with Patient Total time spent is greater than 50% in coordination of care (as documented) at patient's floor/unit and/or counseling patient: less than 15 minutes Plan of Care Discussed with: patient Internal Medicine: Result - Labs CBC & Chem 7: 03/23/18 04:59 03/23/18 04:59 Labs: Short CBC 03/23/18 Range/Units 04:59 WBC 25.3 H (4.3-11.1) K/mcL Hgb 7.0 L (12.9-16.9) g/dL Hct 20.0 L (37.5-50.1) % Plt Count 326 (140-400) K/mcL BMP 03/23/18 04:59 Sodium 134 L Potassium 5.2 H Chloride 102 Carbon Dioxide 20 L BUN > 130 H Creatinine 3.56 H Glucose 140 H Calcium 7.4 L - ABG Interpretation ABG results: PT/INR, D-dimer PT 17.5 Seconds (9.4-12.1) H 03/23/18 04:59 - Impressions Impressions Guidance Ultrasound 03/22/18 00:00 IMPRESSION: Successful ultrasound guided non-tunneled temporary HD catheter placement. D/ /22/2018 12:31:53 Amelie Flores MD / Anaya Zaldivar Interpreting Provider: Amelie Flores MD Insertion Non-Tunneled Catheter 03/22/18 00:00 IMPRESSION: Successful ultrasound guided non-tunneled temporary HD catheter placement. D/ /22/2018 12:31:53 Amelie Flores MD / Anaya Zaldivar Interpreting Provider: Amelie Flores MD Chest X-Ray 03/22/18 09:26 IMPRESSION: Hemodialysis catheter placement with tips in the SVC. No pneumothorax. Small right pleural effusion with mild right basilar atelectasis. D/ : / 03/22/2018 09:50:20 Ryan Dhaliwal MD / Anaya Zaldivar Interpreting Provider: Ryan Dhaliwal MD Consult Discharge Plan - Plan Referrals: Samuel Hyatt MD [Primary Care Provider] - <Adele Magaña - Last Filed: 03/23/18 13:47> Hospitalist Progress Note - Exam Vitals: Temp Pulse Resp BP Pulse Ox 97.3 F L 86 17 118/60 97 03/23/18 12:30 03/23/18 07:17 03/23/18 12:30 03/23/18 12:30 03/23/18 07:25 - Assessment and Plan (1) Chronic atrial fibrillation Current Visit: No Status: Chronic (2) COPD (chronic obstructive pulmonary disease) Current Visit: Yes Status: Chronic (3) Urinary retention Current Visit: No Status: Acute (4) Acute renal failure Current Visit: Yes Status: Suspected (5) Esophageal ulcer with bleeding Current Visit: Yes Status: Acute (6) Hyperkalemia Current Visit: Yes Status: Acute (7) Supratherapeutic INR Current Visit: Yes Status: Resolved (8) Acute on chronic diastolic CHF (congestive heart failure) Current Visit: Yes Status: Acute (9) Acute respiratory failure with hypoxia Current Visit: Yes Status: Acute (10) Hypoalbuminemia Current Visit: Yes Status: Acute (11) Anasarca Current Visit: Yes Status: Acute - Time Spent with Patient Total time spent is greater than 50% in coordination of care (as documented) at patient's floor/unit and/or counseling patient: Internal Medicine: Result - Labs CBC & Chem 7: 03/23/18 04:59 03/23/18 04:59 Labs: Short CBC 03/23/18 Range/Units 04:59 WBC 25.3 H (4.3-11.1) K/mcL Hgb 7.0 L (12.9-16.9) g/dL Hct 20.0 L (37.5-50.1) % Plt Count 326 (140-400) K/mcL BMP 03/23/18 04:59 Sodium 134 L Potassium 5.2 H Chloride 102 Carbon Dioxide 20 L BUN > 130 H Creatinine 3.56 H Glucose 140 H Calcium 7.4 L - ABG Interpretation ABG results: PT/INR, D-dimer PT 17.5 Seconds (9.4-12.1) H 03/23/18 04:59 - Impressions Impressions Guidance Ultrasound 03/22/18 00:00 IMPRESSION: Successful ultrasound guided non-tunneled temporary HD catheter placement. D/ /22/2018 12:31:53 Amelie Flores MD / Anaya Zaldivar Interpreting Provider: Amelie Flores MD Insertion Non-Tunneled Catheter 03/22/18 00:00 IMPRESSION: Successful ultrasound guided non-tunneled temporary HD catheter placement. D/ /22/2018 12:31:53 Amelie Flores MD / Anaya Zaldivar Interpreting Provider: Amelie Flores MD - Attending Attestation I examined this patient and my medical decision-making was reviewed with the Resident Physician Dr Andrade. I agree with the documented findings, disposition and treatment plan as described except to the extent set forth below/addl details below Mr Bean is currently admitted for acute renal failure and CHF exacerbation. He was initially at [place] and had pna with transfer to [facility] for IRAIS that was worsening. He has started dialysis due to IRAIS and inability to diurese given IRAIS. He remains moderate to high risk due to potential for worsening clinical status. He has a confirmed ulcer on egd with anemia requiring blood transfusion this admit and GI following. awake, eating lunchand back from dialysis. Remains sob and admits to wheezing and orthopnea. No cp, palpitations, presyncope or syncope. No bd pain at this time. Eating and drinking without difficulty. gen- alert, awake,appears stated age eyes- pupils equal round, + conjunctival pallor cv- reg rate and irreg/irreg rhythm, normal s1,s2, no murmurs appreciated, pitting edema to the bl thighes, non pitting edema bl arms lungs- diminished throughout, + exp wheezing, normal resp effort on o2 nc abd- soft, non tender, non distended, + bs neuro- AAOx3 skin- warm, dry, no pallor A/P IRAIS - HD as per nephro anasarca, currently unchanged- HD as per nephro acute Hypoxic resp failure due to pulmonary edema from fluid overload - bipap prn, though he is routinely refusing, O2 nc, bronchodilators, HD as per nephro, he has completed treatment for possible pna dx at OSH, may dc steroids as has received 5d treatment and suspect wheezing related to CHF/fluid overload acute on chronic diastolic chf- on HD now, was previously unable to tolerate di uresis given irais acute anemia, suspect acute gi loss anemia given known ulcer on egd this admit- gi has been contacted regarding 3 g hgb drop yesterday and further 1 gm today without noted bleeding, d/w Nephro and will give pt prbc today, start with 1 unit, fu hgb after transfusion, he is on aC for chronic afib which he is currently in, warfarin was resumed 03/22 given risk vs benefit. At this time cont pharm dosing, cont to monitor for bleeding, if no improvement or active bleeding will have to hold coumadin Further diagnoses and plan as per resident <Jl Andrade - Last Filed: 03/23/18 11:51> (1) Acute renal failure Qualifiers: Acute renal failure type: with acute tubular necrosis Qualified Code(s): N17.0 - Acute kidney failure with tubular necrosis (6) COPD (chronic obstructive pulmonary disease) Qualifiers: COPD type: unspecified COPD Qualified Code(s): J44.9 - Chronic obstructive pulmonary disease, unspecified <Adele Magaña - Last Filed: 03/23/18 13:47> (2) COPD (chronic obstructive pulmonary disease) Qualifiers: COPD type: unspecified COPD Qualified Code(s): J44.9 - Chronic obstructive pulmonary disease, unspecified (4) Acute renal failure Qualifiers: Acute renal failure type: with acute tubular necrosis Qualified Code(s): N17.0 - Acute kidney failure with tubular necrosis
[2018-03-23] MEDS: Budesonide/Formoterol 160/4.5 1 PUFF INH IH SCH ×2 (07:25→20:06)
[2018-03-23] MEDS ORDERED: 0.9 % Sodium Chloride 250 ML IVC PRN (07:50)
[2018-03-23] MEDS ORDERED: *HR* Heparin 10,000 UNIT/10 ML VIAL IV PRN (07:50)
[2018-03-23] MEDS: predniSONE 20 MG TABLET PO SCH (07:59)
[2018-03-23] MEDS: Brinzolamide 1% 10 ML BOTTLE BOTH EYES SCH (07:59)
[2018-03-23] MEDS: Aspirin Enteric Coated 81 MG Tablet PO SCH (07:59)
[2018-03-23] MEDS ORDERED: 0.9 % Sodium Chloride 1,000 ML PRIME SCH (08:00)
[2018-03-23 08:11] LABS: IFE Reflexed IFE Done; Immunoglobulin A 514 mg/dL (68-408); Immunoglobulin G 755 mg/dL (768-1632); Immunoglobulin M 37 mg/dL (35-263)
--- NOTE | 2018-03-23 09:45 | Nephrology Progress Note ---
Addendum entered and electronically signed by Kendall Patrick MD 03/23/18 17:48: I examined this patient and discussed the medical decision-making with YOEL Pardo. I agree with the documented findings, disposition and treatment plan as described except to the extent set forth below. Patient was seen on hemodialysis. He will get his third dialysis on Thursday. Original Note: Date of Encounter: 03/23/18 Time of Encounter: 09:42 - Assessment and Plan (1) IRAIS (acute kidney injury) Current Visit: Yes Status: Acute HD dependent IRAIS. Mckee cath in for urinary retention. HD in progress for today, this is consecutive day 2. Avoid nephrotoxins and renal dose. Strict I/O. (2) Pneumonia Current Visit: No Status: Resolved Per primary. Qualifiers: Pneumonia type: due to unspecified organism Laterality: bilateral Lung location: lower lobe of lung Qualified Code(s): J18.1 - Lobar pneumonia, unspecified organism (3) Urinary retention Current Visit: No Status: Acute Improved with Mckee cath in place. (4) UGI bleed Current Visit: Yes Status: Suspected Per primary. (5) Wound of right lower extremity Current Visit: Yes Status: Acute Continue to cover and change as needed. Qualifiers: Qualified Code(s): S81.801A - Unspecified open wound, right lower leg, initial encounter (6) Hyperkalemia Current Visit: Yes Status: Acute is 5.2 today, will correct with HD. (7) Renal cysts, acquired, bilateral Current Visit: Yes Status: Acute Newly diagnosed and most likely are acquired simple renal cysts. Would recommend serial imaging in about 6 months to assess size and density. Subjective Principal diagnosis: IRAIS and PNA Interval history: Seen and examined during HD, tolerating well. Denies CP or SOB. Denies nausea/vomiting/diarrhea. Objective - Vital Signs Vital signs: Vital Signs Temp Pulse Resp BP Pulse Ox 03/23/18 07:25 16 97 03/23/18 07:17 97.4 F L 86 17 155/74 98 03/23/18 04:45 98.3 F 68 18 116/65 96 03/23/18 03:57 18 98 03/22/18 23:39 18 93 03/22/18 22:39 97.5 F L 69 18 125/55 94 10/29/18 20:07 16 93 03/22/18 19:48 97.7 F 80 16 124/64 95 03/22/18 15:34 14 99 03/22/18 15:30 98.5 F 67 16 118/73 99 03/22/18 15:18 97.4 F L 16 119/67 03/22/18 15:00 115/58 03/22/18 14:45 109/71 03/22/18 14:30 108/47 03/22/18 14:15 110/58 03/22/18 14:13 98.3 F 76 16 170/90 92 03/22/18 14:00 122/46 03/22/18 13:45 129/55 03/22/18 13:30 134/59 03/22/18 13:15 136/64 03/22/18 13:00 97.6 F 16 134/60 03/22/18 11:13 16 100 03/22/18 10:46 96.6 F L 84 16 108/70 100 Intake and Output 03/22/18 03/23/18 03/23/18 23:59 07:59 15:59 Intake Total 180 / 180 Output Total 200 / 200 200 / 200 Balance -200 / -200 -200 / -200 180 / 180 Intake: Oral 180 / 180 Output: Urine 200 / 200 Catheter 200 / 200 Other: Meal Breakfast Percent of Meal Consumed 0% Stool Size Small Stool Color Brown # Bowel Movements 1 - General Appearance General appearance: Present: well-developed, well-nourished EENT: Present: ATNC, hearing intact, vision intact Neck: Present: supple Respiratory: Present: clear Cardiology: Present: edema (+2 pitting edema noted up to bilat hips. LUE non pitting edema.), normal S1, normal S2 Dialysis Vascular Access: Venous Catheter (Temp line, DRSG C/D/I) Gastrointestinal: Present: normoactive bowel sounds, no tenderness, no guarding Integumentary: Present: no rash, warm and dry Neurologic: Present: alert and oriented x3 Psychiatric: Present: mood/affect appropriate, cooperative - Lab 03/23/18 04:59 03/23/18 04:59 Most recent lab results Calcium 7.4 mg/dL (8.6-10.3) L 03/23/18 04:59 Phosphorus 7.4 mg/dL (2.7-4.5) H 03/21/18 04:53 Magnesium 2.2 mg/dL (1.6-2.6) 03/21/18 04:53 Urine Creatinine 257 mg/dL 03/18/18 05:11 Urine Sodium 17.9 mEq/L 03/18/18 05:11 Urine Total Protein SEE NOTE mg/d (10-140) 03/18/18 17:30 Consult Discharge Plan - Plan Referrals: Samuel Hyatt MD [Primary Care Provider] -
[2018-03-23] MEDS ORDERED: 0.9 % Sodium Chloride 250 ML ONE (13:28)
[2018-03-23] MEDS: Diltiazem CD (24hr) 300 MG CAPSULE PO SCH (13:58)
[2018-03-23] MEDS: *HR* Digoxin 0.125 MG TABLET PO SCH (13:59)
[2018-03-23 16:57] LABS: Bilirubin,Urine Negative (Negative); Blood,Urine Large (Negative); Clarity,Urine Cloudy (Clear); Color,Urine Yellow (Yellow); Glucose,Urine (UA) Normal (Normal); Ketones,Urine Negative (Negative); Leukocyte Esterase,Urine Moderate (Negative); Nitrite,Urine Negative (Negative); Protein,Urine >=1000 mg/dL (Neg-Trace); Specific Gravity,Urine 1.029 (1.010-1.025); Urobilinogen,Urine Normal (Normal)
[2018-03-23 17:02] LABS: Hematocrit 20.6 % (37.5-50.1); Hemoglobin 7.1 g/dL (12.9-16.9)
[2018-03-23 17:04] LABS: Bacteria,Urine None Seen per hpf (None-Few); Squamous Epithelial Cell,Urine Many per lpf (None-Few); WBC,Urine 50-100 per hpf (0-3)
--- NOTE | 2018-03-23 17:30 | Event Note ---
Date of Encounter: 03/23/18 Time of Encounter: 17:27 s/p 1 unit prbc and hgb from 7 to 7.1 with hgb collected one hour after transfusion. GI made aware earlier today and will re eval. No active bleeding identified throughout day. Second unit prbc ordered and hgb repeat one hour after as discussed with rn. Transfuse overnight to keep hgb >7 or if active bleeding, Unfortunately, given he has actively been in afib here, will need to give coumadin dose tonight and monitor further--inr 1.6. Currently hemodynamically stable.
[2018-03-23] MEDS ORDERED: *HR* Warfarin 1 MG TABLET PO ONE (18:00)
[2018-03-23 18:44] LABS: Mucus,Urine Few (Few)
[2018-03-23 18:45] LABS: Hyaline Casts,Urine Few per lpf (None-Few); RBC,Urine TNTC per hpf (0-3); Transitional Epi Cells,Urine Few per hpf (None-Few)
[2018-03-23 18:46] LABS: Renal Epithelial Cells,Urine Few per hpf (None-Few)
[2018-03-23] MEDS: Acetaminophen 325 MG TABLET PO PRN (21:05)
[2018-03-23] MEDS: Ondansetron 4 MG/2 ML VIAL IVP PRN (21:06)
[2018-03-23 22:57] LABS: Hematocrit 24.9 % (37.5-50.1); Hemoglobin 8.5 g/dL (12.9-16.9)
[2018-03-24] MEDS: Ipratropium/Albuterol Neb 3 ML IH SCH ×5 (03:25→18:03)
--- NOTE | 2018-03-24 06:01 | Internal Med Progress Note ---
<RaymondJl Chito - Last Filed: 03/24/18 11:03> Hospitalist Progress Note - Encounter Date of Encounter: 03/24/18 Time of Encounter: 08:00 - Subjective Interval History: Sleeping in bed, easily arousable. Had episode of melena last night. Says breathing unchanged from yesterday. Did not want to wear BiPAP last night. Mckee in place. Denies abdominal pain, further emesis, similar prior emesis, cough, chest pain, blurry vision/diplopia, dizzy/lightheadedness, or syncope. - Exam Vitals: Temp Pulse Resp BP Pulse Ox 97.7 F 75 18 125/74 94 03/24/18 03:47 03/24/18 03:47 03/24/18 03:47 03/24/18 03:47 03/24/18 03:47 Exam: General: Awake, alert, appears stated age, no acute distress or signs of toxicity HEENT: EOMi, pupils equal/round, mucus membranes moist, R IJ temp dialysis cath in place. Cardiac: Regular rate, irregularly irregular rhythm, S1/S2 present but distant, no murmurs, heaves, thrills appreciated, radial pulse 2+ bilaterally, normal capillary refill, 3+ LE edema L>R, UE R>L Chest: Symmetric chest rise, non tender Pulmonary: Decreased air movement, normal resp effort, scattered end exp wheezes, no rhonchi, rales appreciated Abdominal: Soft, nontender, no distention, guarding, rebound tenderness, or rigidity Neuro: AOx3, CN grossly intact Psych: Normal affect Integumentary: [place], warm, dry, R lower leg bandaged with break in skin, clear drainage present - Assessment and Plan (1) Acute renal failure Current Visit: Yes Status: Acute Assessment and Plan: Creatinine increased from baseline: 1.1 to 2.7 at [place]. Slowly worsening despite IV fluid administration. Fluids were discontinued due to worsening faith leyva. IRAIS etiology likely from prenenal azotemia, BPH, dehydration, medication-induced Renal ultrasound unremarkable Mckee in place with noted hematuria on insertion. UA with trace esterase but large blood and tntc microscopic blood. Trend renal function, I&O's Cr 4.38, BUN >130 on 03/22/18 Neph following and appreciate their recs. Temp RIJ dialysis cath placed 03/22/18 Dialysis started 03/22/18 Renal function gradually improving with dialysis, Cr 3.08, BUN 122, K 4.5 Dialysis today Palliative care consulted today in setting of his multiple medical problems. (2) Acute on chronic diastolic CHF (congestive heart failure) Current Visit: Yes Status: Acute Assessment and Plan: Albumin 2.6, consider dialysis, defer to nephrology LE edema 4+ L>R, UE R>L CXR: No pulm effusion or increasing congestion Right upper extremity ultrasound negative for DVT Patient encouraged to keep his right upper extremity elevated. Echo 03/16/18 revealed LVEF 60-65%, mild RV dilation with normal function, moderate aortic stenosis, mild tricuspid regurg, mild pulmonary hypertension Patient unable to tolerate diuresis secondary to worsening renal function Dialysis again today. Breathing taking more effort today. Anasarca somewhat improving from yst. (3) Acute respiratory failure with hypoxia Current Visit: Yes Status: Acute Assessment and Plan: Likely secondary to fluid overloaded and the setting of acute renal failure and CHF exacerbation. ABG on 03/06/18 revealed pCO2 27 Continue bronchodilators, BiPAP prn, and supplemental oxygen Consider repeat ABG if respiratory function worsens (4) Anasarca Current Visit: Yes Status: Acute Assessment and Plan: -Neph following -Dialysis began 03/22/18 -Renal function not tolerate additional diuretics at this time (5) Urinary retention Current Visit: No Status: Acute Assessment and Plan: -Mckee placed, hematuria noted at placement and on UA -Worsening IRAIS -Monitor I&O's -Nephrology following -Temp RIJ dialysis cath placed 03/22/30 -Dialysis started yesterday -UA, macro and microscopic blood, 50-100 wbc, moderate esterase, neg nitrite or bacteria, not being cultured (6) Chronic atrial fibrillation Current Visit: No Status: Chronic Assessment and Plan: -Continuing home digoxin and diltiazem -03/22/30 warfarin held, supratherapeutic INR, vitamin K and FFP (3/4) given -Most recent INR 1.5 -ECHO showed LVEF was 65-70%, moderate as and mild tr. Estimated RVSP was elevated at 41. -Warfarin restarted 03/22/18. -Concern of bleeding with continued drop in Hgb after 2 units blood yst and melena last night. Will consider holding warfarin with probable EGD today. (7) COPD (chronic obstructive pulmonary disease) Current Visit: Yes Status: Chronic Assessment and Plan: -Continue home meds and duonebs q4h -DC prednisone. -Consider ABG if respiratory function declines (8) Esophageal ulcer with bleeding Current Visit: Yes Status: Acute Assessment and Plan: 1 episode of black, tarry emesis 03/18/18 EGD 03/19/18 revealed esophageal ulcers with coffee-ground material in gastric fundus Warfarin held due supratherapeutic INR, vitamin K and FFP given on 03/22/18 IV pantoprazole 40mg BID GI following Warfarin restarted 03/22/18 and most recent INR 1.6 Did have drop in Hgb from 8.3 to 7 03/23/18 after dialysis. Hgb 11.1 2 days ago (03/21/18) Received 2 units blood yesterday with Hgb increase to 8.5, today drop to 7.5 Hemodynamically stable at this point. Melena reported last night with pos hemeoccult GI to reevaluate today for probable repeat EGD as INR 1.5. Trend H&H today. (9) Hyperkalemia Current Visit: Yes Status: Resolved Assessment and Plan: Potassium 4.5 Continue low salt diet Continue close monitoring Nephrology following Dialysis resolved hyperkalemia (10) Supratherapeutic INR Current Visit: Yes Status: Resolved Assessment and Plan: Patient takes Coumadin for chronic atrial fibrillation Coumadin has been held and INR level 6.5, likely due to recent antibiotic use Coumadin was reversed with vitamin K and FFP on 03/22/18 Trend INR, most recent 1.5 and warfarin resumed Continue close monitoring (11) Hypoalbuminemia Current Visit: Yes Status: Acute Assessment and Plan: 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 WBC 30.8 today from 25 yst. No other signs of infection, afebrile. UA without UTI Leukocytosis likely 2/2 upper GI bleed Will get cxr and c diff toxin today. DVT Prophylaxis: SCDs as warfarin not therapeutic yet - Time Spent with Patient Total time spent is greater than 50% in coordination of care (as documented) at patient's floor/unit and/or counseling patient: less than 15 minutes Plan of Care Discussed with: patient Internal Medicine: Result - Labs CBC & Chem 7: 03/24/18 07:05 03/24/18 07:05 Labs: Short CBC 03/23/18 03/23/18 03/23/18 Range/Units 04:59 16:50 21:00 WBC 25.3 H (4.3-11.1) K/mcL Hgb 7.0 L 7.1 L 8.5 L (12.9-16.9) g/dL Hct 20.0 L 20.6 L 24.9 L (37.5-50.1) % Plt Count 326 (140-400) K/mcL BMP 03/23/18 04:59 Sodium 134 L Potassium 5.2 H Chloride 102 Carbon Dioxide 20 L BUN > 130 H Creatinine 3.56 H Glucose 140 H Calcium 7.4 L Urine 03/23/18 Range/Units 15:10 Urine Color Yellow (Yellow) Urine Clarity Cloudy A (Clear) Urine pH 5.0 (5.0-8.0) pH Units Ur Specific [place] 1.029 H (1.010-1.025) Urine Protein >=1000 H (Neg-Trace) mg/dL Urine Glucose (UA) Normal (Normal) mg/dL - ABG Interpretation ABG results: PT/INR, D-dimer PT 17.5 Seconds (9.4-12.1) H 03/23/18 04:59 Consult Discharge Plan - Plan Referrals: Samuel Hyatt MD [Primary Care Provider] - <Adele Magaña - Last Filed: 03/24/18 13:06> Hospitalist Progress Note - Exam Vitals: Temp Pulse Resp BP Pulse Ox 97.3 F L 77 16 123/56 92 03/24/18 11:17 03/24/18 11:17 03/24/18 11:45 03/24/18 11:17 03/24/18 11:45 - Assessment and Plan (1) Anemia Current Visit: Yes Status: Acute - Time Spent with Patient Total time spent is greater than 50% in coordination of care (as documented) at patient's floor/unit and/or counseling patient: Internal Medicine: Result - Labs CBC & Chem 7: 03/24/18 07:05 03/24/18 07:05 Labs: Short CBC 10/03/23/18 03/24/18 Range/Units 16:50 21:00 07:05 WBC 30.8 H* (4.3-11.1) K/mcL Hgb 7.1 L 8.5 L 7.5 L (12.9-16.9) g/dL Hct 20.6 L 24.9 L 21.4 L (37.5-50.1) % Plt Count 230 (140-400) K/mcL BMP 03/24/18 07:05 Sodium 134 L Potassium 4.5 Chloride 101 Carbon Dioxide 25 BUN 122 H Creatinine 3.08 H Glucose 128 H Calcium 7.2 L Urine 03/23/18 Range/Units 15:10 Urine Color Yellow (Yellow) Urine Clarity Cloudy A (Clear) Urine pH 5.0 (5.0-8.0) pH Units Ur Specific [place] 1.029 H (1.010-1.025) Urine Protein >=1000 H (Neg-Trace) mg/dL Urine Glucose (UA) Normal (Normal) mg/dL - ABG Interpretation ABG results: PT/INR, D-dimer PT 16.4 Seconds (9.4-12.1) H 03/24/18 07:05 - Impressions Impressions Chest X-Ray 03/22/18 09:26 IMPRESSION: Hemodialysis catheter placement with tips in the SVC. No pneumothorax. Small right pleural effusion with mild right basilar atelectasis. D/ / 03/22/2018 09:50:20 Ryan Dhaliwal MD / Anaya Zaldivar Interpreting Provider: Ryan Dhaliwal MD - Attending Attestation I examined this patient and my medical decision-making was reviewed with the Resident Physician Dr Andrade. I agree with the documented findings, disposition and treatment plan as described except to the extent set forth below/addl details below Mr Bean is currently admitted for acute renal failure and CHF exacerbation. He was initially at [place] and had pna with transfer to [facility] for IRAIS that was worsening. He has started dialysis due to IRAIS and inability to diurese given IRAIS. He remains moderate to high risk due to potential for worsening clinical status. He has a confirmed ulcer on egd with anemia requiring blood transfusions and GI actively following. awake, no sob on o2 nc, denies wheezing, cough currently. He is aware of melena last night, denies abd pain, n/v, presyncope. Lengthy discussion with pt re need to hold asa and warfarin with ugib and prbc x2 overnight to simply maintain his hgb. He understands risk of clot, stroke with afib off AC and agrees with plan to hold. GI Dr Reyes was called this morning and updated and will see pt today. He denies any chest pain or palpitations. gen- alert, awake,appears stated age eyes- pupils equal round, + conjunctival pallor cv- reg rate and irreg/irreg rhythm, normal s1,s2, no murmurs appreciated, pitting edema to the bl knees, non pitting edema bl arms lungs- diminished throughout, + exp wheezing, normal resp effort on o2 nc abd- soft, non tender, non distended, + bs neuro- AAOx3 skin- warm, dry, + pallor A/P IRAIS - HD as per nephro anasarca - HD as per nephro acute Hypoxic resp failure due to pulmonary edema from fluid overload - stable, bipap prn, though he is routinely refusing, O2 nc, bronchodilators, HD as per nephro, he has completed treatment for possible pna dx at OSH, now off steroids and stable acute on chronic diastolic chf- on HD now, was previously unable to tolerate d iuresis given irais acute anemia, suspect acute upper gi loss anemia given known ulcer on egd this admit and recurrence of melena 10/30 overnight-hemodynamically stable at this time, 2 units prbc overnight to maintain hgb >7, I personally discussed with Dr Reyes this morning, pt npo and awaiting eval by gi, PPI IV, stop warfarin and asa given risk vs benefit, had d/w pt and he agrees. Serial h/hs, next one currently pending, may require further transfusion, RN aware Chronic Afib, rate controlled - holding warfarin given active bleeding Leukocytosis, up trend to 30, off steroids, afebrile and hemodynamically stable, this may be reactive- ua neg for infection, repeat CXR, check c diff given loose melenotic stool overnight and recent abx, if becomes febrile will send bl cxs and resume abx Further diagnoses and plan as per resident awaiting family arrival to provide update __ <Jl Andrade - Last Filed: 03/24/18 11:03> (1) Acute renal failure Qualifiers: Acute renal failure type: with acute tubular necrosis Qualified Code(s): N17.0 - Acute kidney failure with tubular necrosis (7) COPD (chronic obstructive pulmonary disease) Qualifiers: COPD type: unspecified COPD Qualified Code(s): J44.9 - Chronic obstructive pulmonary disease, unspecified (12) Leukocytosis Qualifiers: Leukocytosis type: unspecified Qualified Code(s): D72.829 - Elevated white blood cell count, unspecified <Adele Magaña - Last Filed: 03/24/18 13:06> (1) Anemia Qualifiers: Anemia type: unspecified type Qualified Code(s): D64.9 - Anemia, unspecified
[2018-03-24 07:23] LABS: Mean Platelet Volume 9.7 fL (9.4-12.4)
[2018-03-24 07:24] LABS: Hematocrit 21.4 % (37.5-50.1); Hemoglobin 7.5 g/dL (12.9-16.9); Mean Corpuscular Hemoglobin 30.5 pg (28.0-33.3); Platelet Count 230 K/mcL (140-400); Red Blood Count 2.46 M/mcL (4.19-5.50); Red Cell Distribution Width 14.9 % (11.5-14.5)
[2018-03-24 07:33] LABS: INR 1.5; Prothrombin Time 16.4 Seconds (9.4-12.1)
[2018-03-24 07:42] LABS: Calcium 7.2 mg/dL (8.6-10.3); Potassium 4.5 mEq/L (3.5-5.1)
[2018-03-24 07:43] LABS: Magnesium 1.9 mg/dL (1.6-2.6); Phosphorous 6.3 mg/dL (2.7-4.5)
[2018-03-24] MEDS ORDERED: Pantoprazole 40 MG in 0.9 % Sodium Chloride Mini Bag 100 ML IVC SCH (07:45)
[2018-03-24] MEDS ORDERED: Pantoprazole 40 MG VIAL IVP ONE (07:52)
[2018-03-24] MEDS: Brinzolamide 1% 10 ML BOTTLE BOTH EYES SCH ×3 (07:54→21:40)
[2018-03-24] MEDS: Latanoprost 2.5 ML BOTTLE BOTH EYES SCH ×2 (07:55→21:39)
[2018-03-24] MEDS: Budesonide/Formoterol 160/4.5 1 PUFF INH IH SCH (07:58)
[2018-03-24] MEDS ORDERED: Pantoprazole 80 MG in 0.9 % Sodium Chloride 50 ML IVPB ONE (08:17)
[2018-03-24] MEDS ORDERED: *HR* Heparin 10,000 UNIT/10 ML VIAL IV PRN (09:33)
[2018-03-24] MEDS ORDERED: 0.9 % Sodium Chloride 250 ML IVC PRN (09:33)
[2018-03-24] MEDS: Diltiazem CD (24hr) 300 MG CAPSULE PO SCH (09:36)
[2018-03-24] MEDS ORDERED: 0.9 % Sodium Chloride 1,000 ML PRIME SCH (09:45)
--- NOTE | 2018-03-24 09:59 | Nephrology Progress Note ---
Addendum entered and electronically signed by Kendall Patrick MD 03/24/18 22:23: I examined this patient and discussed the medical decision-making with YOEL Pardo. I agree with the documented findings, disposition and treatment plan as described except to the extent set forth below. With the greatly elevated BUN the patient will likely need dialysis tomorrow as well. Patient was seen on dialysis. Original Note: Date of Encounter: 03/24/18 Time of Encounter: 09:57 - Assessment and Plan (1) IRAIS (acute kidney injury) Current Visit: Yes Status: Acute HD dependent IRAIS. Mckee cath in for urinary retention. HD in progress for today, this is consecutive day 2. Avoid nephrotoxins and renal dose. Strict I/O. Will continue to assess for signs of renal recovery, if no signs of recovery by Thursday of this week, will make plans for [facility] and outpatient HD chair. (2) Pneumonia Current Visit: No Status: Resolved Per primary. Qualifiers: Pneumonia type: due to unspecified organism Laterality: bilateral Lung location: lower lobe of lung Qualified Code(s): J18.1 - Lobar pneumonia, unspecified organism (3) Urinary retention Current Visit: No Status: Acute Improved with Mckee cath in place. (4) UGI bleed Current Visit: Yes Status: Suspected Per primary. NPO for upper and lower scope tomorrow. (5) Wound of right lower extremity Current Visit: Yes Status: Acute Continue to cover and change as needed. Qualifiers: Qualified Code(s): S81.801A - Unspecified open wound, right lower leg, initial encounter (6) Hyperkalemia Current Visit: Yes Status: Resolved is 4.5 today, will correct with HD. (7) Renal cysts, acquired, bilateral Current Visit: Yes Status: Acute Newly diagnosed and most likely are acquired simple renal cysts. Would recommend serial imaging in about 6 months to assess size and density. Subjective Principal diagnosis: IRAIS and PNA Interval history: Seen and examined doing well. Denies any chest pain or shortness of breath. Denies nausea/vomiting/diarrhea. Objective - Vital Signs Vital signs: Vital Signs Temp Pulse Resp BP Pulse Ox 03/24/18 07:14 98.1 F 73 19 119/68 100 03/24/18 03:47 97.7 F 75 18 125/74 94 03/24/18 03:26 18 97 03/23/18 23:56 97.6 F 77 18 120/74 96 03/23/18 23:25 15 97 03/23/18 21:26 17 97 03/23/18 20:06 18 96 03/23/18 17:55 97.6 F 96 16 116/65 03/23/18 17:40 97.4 F L 82 16 103/62 96 03/23/18 17:14 98.0 F 80 15 117/59 100 03/23/18 16:00 96.8 F L 87 16 111/60 96 03/23/18 15:33 95 03/23/18 14:11 97.7 F 95 16 112/66 99 03/23/18 13:56 97.6 F 89 16 107/63 99 03/23/18 12:30 97.3 F L 17 118/60 03/23/18 12:20 112/60 03/23/18 12:05 117/59 03/23/18 11:50 103/60 03/23/18 11:35 106/51 03/23/18 11:20 107/60 03/23/18 11:05 96/53 03/23/18 10:50 98/57 03/23/18 10:35 105/58 03/23/18 10:20 106/53 03/23/18 10:05 106/43 Intake and Output 03/23/18 03/24/18 03/24/18 23:59 07:59 15:59 Intake Total 840 / 840 Output Total 425 / 425 Balance 840 / 840 -425 / -425 Intake: Oral 240 / 240 Blood Product 600 / 600 Rbcs Leuko Poor As-1 Unit 350 / 350 [id number] Rbcs Leuko Poor As-3 2nd Unit 250 / 250 [id number] Output: Catheter 425 / 425 Other: Meal Dinner NPO Percent of Meal Consumed 40% Stool Size Moderate Stool Consistency formed Stool Characteristics Tarry Stool Color Brown # Bowel Movements 1 Weight 91.2 kg - General Appearance General appearance: Present: well-developed, well-nourished EENT: Present: ATNC, hearing intact, vision intact Neck: Present: supple Respiratory: Present: clear Cardiology: Present: edema (+3 pitting edema noted to bilat lower extremities. LUE non pitting.), normal S1, normal S2 Gastrointestinal: Present: normoactive bowel sounds, no tenderness, no guarding Integumentary: Present: no rash, warm and dry Neurologic: Present: alert and oriented x3 Psychiatric: Present: mood/affect appropriate, cooperative - Lab 03/24/18 12:50 03/24/18 07:05 Most recent lab results Calcium 7.2 mg/dL (8.6-10.3) L 03/24/18 07:05 Phosphorus 6.3 mg/dL (2.7-4.5) H 03/24/18 07:05 Magnesium 1.9 mg/dL (1.6-2.6) 03/24/18 07:05 Urine Creatinine 257 mg/dL 03/18/18 05:11 Urine Sodium 17.9 mEq/L 03/18/18 05:11 Urine Total Protein SEE NOTE mg/d (10-140) 03/18/18 17:30 Consult Discharge Plan - Plan Referrals: Samuel Hyatt MD [Primary Care Provider] -
[2018-03-24] MEDS: *HR* Digoxin 0.125 MG TABLET PO SCH (10:20)
--- NOTE | 2018-03-24 11:33 | Palliative - Consult Note ---
Date of Encounter: 03/24/18 Time of Encounter: 11:32 - Assessment and Plan (1) Goals of care, counseling/discussion Current Visit: Yes Status: Acute Assessment and plan: Prolonged meeting with patient to discuss GOC. Pt previously to current hospital course, was living alone, mostly homebound, but independent on hi ADLs. He had a private pay for cleaning and meals. Pt is and has 3 children Bing, Shahid and Ubaldo. He would like all 3 children to be equal in decision making if he was unable to do so. Discussed current medical condition, trajectory of illness, treatment options and overall prognosis. Pt states he is feeling better with current treatment, but shows understanding that his hank is unstable. he would like to continue on current level of care, until all work up is completed and all options are presented. Discussed the likelihood that pt may need chronic HD, pt states he is not sure that it is something he will agree to, however he needs discussion with children. Patient would like to discuss further with family once work up is completed for bleeding. Will contact children to plan for family meeting after endoscopy tomorrow. Discussed that pt is very weak and might not be able to return to be living home alone. Pt is ok with discharge to an SNF. Discussed advanced care planning, patient stated he did not want to be resuscitated or intubated, and does not want to be maintained alive on art ificial means. DRNCCA and [employer] State form filled. (2) Dyspnea Current Visit: Yes Status: Acute Assessment and plan: Pt denies subjective dyspnea, but breathing is labored. Pt became SOB when moved up for auscultation. On scheduled Duoneb q4hr, will continue continue bronchodilators and expectorant. Qualifiers: Dyspnea type: shortness of breath Qualified Code(s): R06.02 - Shortness of breath; R06.00 - Dyspnea, unspecified; R06.01 - Orthopnea (3) Declining functional status Current Visit: Yes Status: Acute Assessment and plan: Pt is very weak and with decreased functional status. PT recommending SNF. Pt states he is ok with discharge to SNF. (4) Acute renal failure Current Visit: Yes Status: Acute Qualifiers: Acute renal failure type: with acute tubular necrosis Qualified Code(s): N17.0 - Acute kidney failure with tubular necrosis (5) Anemia Current Visit: Yes Status: Acute Assessment and plan: Pt received 2PRBCs, with no improvement of HB. scheduled for further endoscopy tomorrow. Qualifiers: Anemia type: unspecified type Qualified Code(s): D64.9 - Anemia, unspecified Palliative-CN HPI - Data of Consult Patient: new to practice Consult date: 03/24/18 Requesting Physician: Adeel Magaña Primary Care Provider: Samuel Hyatt MD - Consult Narrative Palliative Care/Comfort Measures: Palliative care Reason for consult: Goals of care discussion History of present illness: Mr. Bean is 87-year-old male who presented to [facility] with complains of dyspnea and cough. He was preadmitted there March 06. He was then transferred to [facility] bed [facility]". he was transferred to [facility] for worsening dyspnea and non productive cough. Chest x-ray reflective of pneumonia. He was started on Levaquin and a probiotic. He also had trouble voiding, and a Mckee catheter was reinserted. He had gross hematuria with an increased SCR that continued to worsen. Retroperitoneal US was negative, nephrology as consulted and in view of continuous worsening, pt and family agreed for HD on 03/21/18. Hospital stay have also been complicated by a drop in hemoglobin, GI was called and EGD was performed on 03/19/18 that showed esophageal ulcers but no source of bleeding. Hb continues to drop, pt is scheduled for Colonoscopy tomorrow. Palliative care consult to define GOC. Pt today was alert, oriented x4. He stated his cough has improved, denies any SOB, chest pain, nausea, vomiting, hematemesis or BRBPR, melena. he is feeling weak, but otherwise better. 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 Psychiatric history: no psych history - Past Surgical History Surgical History: other Additional surgical history: Stent placed in right leg 20 years ago - Social History Smoking Status: Former smoker Smokeless Tobacco Status: No Alcohol use: occasionally Drug use: none - Family History Father Adopted: No Family Member Ethnicity: Non- Living Status: Hx Family Cardiac Disorders: Yes Hx Family Respiratory Disorders: No Hx Family Cancer: Yes Hx Family GI Disorders: No Hx Family Endocrine Disorder: No Hx Family Neuromuscular Disorders: No Hx Family Neurologic Disorders: No Hx Family HEENT Disorders: No Hx Family Autoimmune Disorders: No Medications and Allergies Albuterol Sulfate [Albuterol Inhaler] 2 puff IH QID 09/01/15 [History] Aspirin [Adult Low Dose Aspirin EC] 81 mg PO DAILY 09/01/15 [History] Cholecalciferol (Vitamin D3) [Vitamin D3] 2,000 unit PO DAILY 09/01/15 [History] Diltiazem CD (24hr) [Cardizem CD] 300 mg PO DAILY 09/01/15 [History] Pravastatin Sodium [Pravachol] 20 mg PO HS 09/01/15 [History] Tiotropium [Spiriva] 18 mcg IH DAILY 09/01/15 [History] Budesonide/Formoterol 160/4.5 [Symbicort 160/4.5] 2 puff IH BIDR 03/06/18 [History] Guaifenesin [Mucinex] 600 mg PO BID 03/06/18 [History] Latanoprost/Pf [Latanoprost 0.005% Eye Drop] 1 drop BOTH EYES HS 03/06/18 [History] Albuterol Neb [Proventil Neb] 2.5 mg IH Q2H PRN inhsol 03/09/18 [Rx] Clindamycin 600 MG/50 ML [Cleocin Premix 600 MG/50 ML] 600 mg IVPB Q8H 5 Days bag 03/09/18 [Rx] Digoxin [Lanoxin] 0.125 mg PO DAILY tablet 03/09/18 [Rx] Finasteride [Proscar] 5 mg PO DAILY tablet 03/09/18 [Rx] Furosemide [Lasix] 20 mg PO DAILY tablet 03/09/18 [Rx] cefTRIAXone [Rocephin] 1,000 mg IVP DAILY 5 Days vial 03/09/18 [Rx] Brinzolamide/Brimonidine Tart [Simbrinza 1%-0.2% Eye Drops] 1 drop BOTH EYES BID 03/17/18 [History] Potassium Chloride [Klor-Con 10] 20 meq PO DAILY 03/17/18 [History] Warfarin [Coumadin] 1 mg PO MOFR 03/17/18 [History] Warfarin [Coumadin] 2 mg PO SUTUWETHSA 03/17/18 [History] Allergy/AdvReac Type Severity Reaction Status Date / Time No Known Allergies Allergy Verified 03/06/18 09:37 - Constitutional Constitutional ROS PAL: fatigue - EENT Additional comments: negative - Cardiovascular Cardiovascular ROS: dyspnea on exertion, no chest pain at rest - Respiratory Respiratory: cough, dyspnea on exertion - Gastrointestinal Gastrointestinal: no abdominal pain, no change in bowel habits, no melena, no nausea, no vomiting - Genitourinary Genitourinary ROS male: difficulty urinating - Musculoskeletal Musculoskeletal ROS IM: no arthralgias - Integumentary ROS Integumentary: unusual bruising - Neurological Neurological ROS: weakness Palliative Care-Exam - Constitutional Vitals: Temp Pulse Resp BP Pulse Ox 97.3 F L 77 20 123/56 96 03/24/18 11:17 03/24/18 11:17 03/24/18 11:17 03/24/18 11:17 03/24/18 11:17 Exam: General appearance: Present: well-developed, well-nourished, chronically ill, fatigue, frail EENT: Present: ATNC, PERRL, mucous membranes moist Neck: Present: supple Respiratory: Present: course breath sounds with crackles in the bases, diffused wheezing Cardiology: Present: edema (1+ hand edena and about 1+ edema of the ankles bilaterally), irregular rhythm, normal S1, normal S2 Gastrointestinal: Present: normoactive bowel sounds, no tenderness, no guarding, obese Musculoskeletal: Present: no deformities, no clubbing, bilateral edema Integumentary: Present: erythema (with LE skin breakdown and oozing of serous fluid. ), ecchymotic, chronic venous stasis Neurologic: Present: no focal deficit, no asterixis, alert and oriented x3 Psychiatric: Present: mood/affect appropriate, cooperative Internal Medicine - CN: Reslt - Labs CBC & Chem 7: 03/24/18 12:50 03/24/18 07:05 Labs: Short CBC 03/23/18 03/23/18 03/24/18 Range/Units 16:50 21:00 07:05 WBC 30.8 H* (4.3-11.1) K/mcL Hgb 7.1 L 8.5 L 7.5 L (12.9-16.9) g/dL Hct 20.6 L 24.9 L 21.4 L (37.5-50.1) % Plt Count 230 (140-400) K/mcL BMP 03/24/18 07:05 Sodium 134 L Potassium 4.5 Chloride 101 Carbon Dioxide 25 BUN 122 H Creatinine 3.08 H Glucose 128 H Calcium 7.2 L Urine 03/23/18 Range/Units 15:10 Urine Color Yellow (Yellow) Urine Clarity Cloudy A (Clear) Urine pH 5.0 (5.0-8.0) pH Units Ur Specific [place] 1.029 H (1.010-1.025) Urine Protein >=1000 H (Neg-Trace) mg/dL Urine Glucose (UA) Normal (Normal) mg/dL - ABG Interpretation ABG results: PT/INR, D-dimer PT 16.4 Seconds (9.4-12.1) H 03/24/18 07:05 - Impressions Impressions Chest X-Ray 03/22/18 09:26 IMPRESSION: Hemodialysis catheter placement with tips in the SVC. No pneumothorax. Small right pleural effusion with mild right basilar atelectasis. D/ : / 03/22/2018 09:50:20 Ryan Dhaliwal MD / Anaya Zaldivar Interpreting Provider: Ryan Dhaliwal MD Consult Discharge Plan - Plan Referrals: Samuel Hyatt MD [Primary Care Provider] - Palliative Quality Palliative Quality: Screen for Code Status: Yes, Screen for Goals of Care: Yes, Screen for Pain: Yes, If Pain Regimen Started, Initiate Bowel Regimen: NA, Screen for Nausea/Vomitting: Yes Code Status: 03/17/18 15:54 Resuscitation Status: Active [RES] Routine Comment: Resuscitation Status: Full Code
--- NOTE | 2018-03-24 11:34 | Gastroenterology Progress Note ---
<Jacob Obregon - Last Filed: 03/24/18 11:31> Date of Encounter: 03/24/18 Time of Encounter: 11:31 - Assessment and plan (1) Anemia Current Visit: Yes Status: Acute Assessment and plan: She remains persistently anemic despite repeated blood transfusion and correction of INR. No clinical evidence of bleeding however patient does have elevated BUN. Unclear if this is from upper GI bleed or renal disease. Patient had endoscopy last Thursday that showed several esophageal ulcers that were nonbleeding at the time. Given continued drop in hemoglobin we will plan for upper and lower endoscopy tomorrow. Clear liquid diet now, nothing by mouth at midnight, bowel prep overnight. Tap water enemas in the morning if not clear. Qualifiers: Anemia type: unspecified type Qualified Code(s): D64.9 - Anemia, unspecified - Time Spent With Patient Total time spent is greater than 50% in coordination of care (as documented) at patient's floor/unit and/or counseling patient: - Subjective Interval history: Patient seen and examined at bedside. He states he is feeling pretty good this morning. Denies abdominal pain, nausea, vomiting. He states he had a soft bowel movement last night that he did not look at. Per nursing report it was brown and tarry. No clinical evidence of bleeding. - Constitutional Vitals: Temp Pulse Resp BP Pulse Ox 97.3 F L 77 20 123/56 96 03/24/18 11:17 03/24/18 11:17 03/24/18 11:17 03/24/18 11:17 03/24/18 11:17 General appearance: Present: A&O X 3, pleasant, no acute distress - Respiratory Respiratory exam: Present: rhonchi (Bilateral). Absent: rales, wheezes - Cardiovascular Cardiovascular exam: Present: irregular rhythm. Absent: gallop, rubs, systolic murmur - GI/Abdominal GI/Abdominal exam: Present: normal bowel sounds, soft. Absent: distended, tenderness Results - Labs CBC & Chem 7: 03/24/18 07:05 03/24/18 07:05 Labs: Last Result Calcium 7.2 mg/dL (8.6-10.3) L 03/24/18 07:05 Stool Occult Blood Positive (Negative) A 03/23/18 18:50 Entire Visit Hgb 7.5 g/dL (12.9-16.9) L 03/24/18 07:05 Hct 21.4 % (37.5-50.1) L 03/24/18 07:05 PT 16.4 Seconds (9.4-12.1) H 03/24/18 07:05 Total Bilirubin 0.5 mg/dL (0.3-1.0) 03/21/18 06:14 AST 14 Units/L (13-39) 03/21/18 06:14 ALT 16 Units/L (7-52) 03/21/18 06:14 - ABG ABG results: PT/INR, D-dimer PT 16.4 Seconds (9.4-12.1) H 03/24/18 07:05 - Impressions Impressions Chest X-Ray 03/22/18 09:26 IMPRESSION: Hemodialysis catheter placement with tips in the SVC. No pneumothorax. Small right pleural effusion with mild right basilar atelectasis. D/ / 03/22/2018 09:50:20 Ryan Dhaliwal MD / Anaya Zaldivar Interpreting Provider: Ryan Dhaliwal MD Consult Discharge Plan - Plan Referrals: Samuel Hyatt MD [Primary Care Provider] - <Dariel Reyes - Last Filed: 03/24/18 18:32> Time of Encounter: 18:00 - Time Spent With Patient Total time spent is greater than 50% in coordination of care (as documented) at patient's floor/unit and/or counseling patient: - Constitutional Vitals: Temp Pulse Resp BP Pulse Ox 97.2 F L 77 18 117/72 98 03/24/18 17:28 03/24/18 11:17 03/24/18 18:02 03/24/18 17:28 03/24/18 18:02 Results - Labs CBC & Chem 7: 03/24/18 17:40 03/24/18 07:05 Labs: Last Result Calcium 7.2 mg/dL (8.6-10.3) L 03/24/18 07:05 Stool Occult Blood Positive (Negative) A 03/23/18 18:50 Entire Visit Hgb 6.8 g/dL (12.9-16.9) L 03/24/18 17:40 Hct 19.5 % (37.5-50.1) L 03/24/18 17:40 PT 16.4 Seconds (9.4-12.1) H 03/24/18 07:05 Total Bilirubin 0.5 mg/dL (0.3-1.0) 03/21/18 06:14 AST 14 Units/L (13-39) 03/21/18 06:14 ALT 16 Units/L (7-52) 03/21/18 06:14 - ABG ABG results: PT/INR, D-dimer PT 16.4 Seconds (9.4-12.1) H 03/24/18 07:05 - Impressions Impressions Chest X-Ray 03/22/18 09:26 IMPRESSION: Hemodialysis catheter placement with tips in the SVC. No pneumothorax. Small right pleural effusion with mild right basilar atelectasis. D/ : / 03/22/2018 09:50:20 Ryan Dhaliwal MD / Anaya Zaldivar Interpreting Provider: Ryan Dhaliwal MD - Attending Attestation I have personally performed a face to face evaluation on this patient. I have reviewed and agree with the care plan. History and Exam by me shows: Patient seen at the bedside along with a family member. Currently on examination patient is in respiratory distress and also his blood pressure is in the 80s. Assessment: Patient with multiple comorbidities now with ongoing chronic blood loss anemia. Patient is unable to tolerate colonoscopy prep and family and patient not interested in getting: ReC: Family is going to discuss with the patient about the goals of care. At this point colonoscopy will be on hold and if indicated will do either and EGD/enteroscopy but again patient is a very high risk for complication
[2018-03-24] MEDS ORDERED: SODIUM CHLORIDE/NAHCO3/KCL/PEG 4,000 ML SOLN.RECON PO ONE (11:37)
[2018-03-24] MEDS ORDERED: 0.9 % Sodium Chloride 1,000 ML ONE (12:57)
[2018-03-24 13:07] LABS: Hematocrit 23.3 % (37.5-50.1)
[2018-03-24] MEDS: Pantoprazole 40 MG VIAL IVP SCH (17:21)
--- NOTE | 2018-03-24 17:37 | Event Note ---
Date of Encounter: 03/24/18 Time of Encounter: 17:34 updated status and plan of care discussed with pt daughter. She wanted ot make team aware that her father has a living will stating he is DNR. She will obtian copy and bring in. DNR CCA at this time. She and family are going to discuss with him goals of care tonight and may make decision to possibly forego rescope given the last one was so difficult for him, understanding he has likely active bleeding with difficult to maintain hgbs. She will discuss with him tonight and update team in morning. Palliative is on board if family and pt decide to pursue comfort care.
[2018-03-24 17:59] LABS: Hematocrit 19.5 % (37.5-50.1); Hemoglobin 6.8 g/dL (12.9-16.9)
[2018-03-24] MEDS ORDERED: 0.9 % Sodium Chloride 500 ML IVC ONE (18:08)
[2018-03-24] MEDS ORDERED: *HR* Phytonadione 5 MG TABLET PO ONE (18:08)
--- NOTE | 2018-03-24 18:59 | Event Note ---
Addendum entered and electronically signed by Adele Magaña, 03/25/18 08:08: I examined this patient and my medical decision-making was reviewed with the Resident Physician 03/24/18. I agree with the documented findings, disposition and treatment plan as described except to the extent set forth below. Please see my personal documentation below Addendum entered and electronically signed by Corey Cooper, 03/24/18 20:43: A rapid response was called at 18:15 shortly after Mr. Bean returned to his room from dialysis/ ultrafiltration. Both RN and PCT were assisting the patient on the bedside commode when he stated he felt like he was about to pass out. The patient then slouched to his left side and became unresponsive. Patient was moved back to his bed and became more responsive with increased stimulation. Dr. Zuñiga and I immediately arrived at the beside with our attending, Dr. Magaña. He had a strong distal pulse and increased work with breathing. Vitals revealed BP 83/62, RR 18, SpO2 98 % on 3L, and pulse rate 79. Of note, he had dark black stool in his bedside commode and RN reported no volume was removed during dialysis today. Patient was awake, alert & oriented x3, and denied any associated pain. He had expiratory wheezing on exam, accessory muscle use, and was started on a Duoneb treatment. Two units of PRBCs, Vitamin K 5 mg PO x1, and a 500 cc bolus of normal saline were ordered. Repeat BP was 98/63 with a MAP > 65. Both Mr. Bean's son and daughter were at bedside. Machine I Trimmer, Dr. Reyes, also arrived at bedside to discuss wishes with the family. They declined performing the colonoscopy tomorrow because they did not feel Mr. Bean would be able to tolerate it. Mr. Bean and his children requested to proceed with an EGD and possible push enteroscopy in the morning to further evaluate for a source of continued bleeding if he does not have any major changes in his condition overnight. Repeat H&H is pending and he remains NPO after midnight. Will consider bleeding scan to further evaluate source of acute blood loss anemia if condition deteriorates during the night. Patient stated "I have lived a long life and am ready to go". Original Note: Date of Encounter: 03/24/18 Time of Encounter: 18:15 rapid response called for syncopal event while using bedside commode and having episode of melanotic stool. Pt quickly came to. See resident documentation for complete details. Onarrival to room pt awake, alert, oriented, denying any pain. VS revealed bp 80s/60 with goal map. FAmily at bedside. Lengthy discussion regarding pt and family wishes and goals of care. Agreeable to fluid resuscitation with NS and blood. 2 units prbcs, vit k and NS 500 cc bolus ordered stat. At this time they decline colonoscopy as they do not feel he will tolerate it tomorrow and I and Dr Reyes, later present to bedside, agree. Family and pt considering egd in am vs comfort care approach and will update team in morning.
[2018-03-24] MEDS: Acetaminophen 325 MG TABLET PO PRN (22:57)
[2018-03-24] MEDS: Ondansetron 4 MG/2 ML VIAL IVP PRN (23:57)
[2018-03-25] MEDS: Budesonide/Formoterol 160/4.5 1 PUFF INH IH SCH ×3 (00:02→20:56)
[2018-03-25] MEDS: Ipratropium/Albuterol Neb 3 ML IH SCH ×8 (00:02→23:26)
--- NOTE | 2018-03-25 06:20 | Internal Med Progress Note ---
<GómezAdele Gregg - Last Filed: 03/25/18 16:31> Hospitalist Progress Note - Encounter Date of Encounter: 03/25/18 - Exam Vitals: Temp Pulse Resp BP Pulse Ox 97.5 F L 105 16 115/46 95 03/25/18 12:49 03/25/18 12:49 03/25/18 12:49 03/25/18 12:49 03/25/18 12:49 - Assessment and Plan (1) Anemia Current Visit: Yes Status: Acute - Time Spent with Patient Total time spent is greater than 50% in coordination of care (as documented) at patient's floor/unit and/or counseling patient: Internal Medicine: Result - Labs CBC & Chem 7: 03/25/18 09:11 03/25/18 05:30 Labs: Short CBC 03/24/18 03/25/18 03/25/18 Range/Units 17:40 05:30 09:11 WBC 52.2 H* D (4.3-11.1) K/mcL Hgb 6.8 L 9.8 L D 9.5 L (12.9-16.9) g/dL Hct 19.5 L 28.4 L 27.7 L (37.5-50.1) % Plt Count 155 (140-400) K/mcL Neutrophils # 43.9 H (1.6-8.9) K/mcL BMP 03/25/18 05:30 Sodium 133 L Potassium 4.3 Chloride 98 Carbon Dioxide 23 BUN 98 H Creatinine 2.83 H Glucose 194 H Calcium 7.1 L - ABG Interpretation ABG results: PT/INR, D-dimer PT 18.6 Seconds (9.4-12.1) H 03/25/18 05:30 - Impressions Impressions Chest X-Ray 03/24/18 10:50 IMPRESSION: No acute process. Stable right basilar atelectatic changes and possible right pleural effusion D/ / Jacob Méndez MD / Jacob Méndez MD Interpreting Provider: Jacob Méndez MD Consult Discharge Plan - Plan Referrals: Samuel Hyatt MD [Primary Care Provider] - (patient will follow up with ECF PCP or if goes home will probably go with hospice) - Attending Attestation I examined this patient and my medical decision-making was reviewed with the Resident Physician Dr Andrade. I agree with the documented findings, disposition and treatment plan as described except to the extent set forth below/addl details below Mr Bean is currently admitted for acute renal failure and CHF exacerbation. He was initially at [place] and had pna with transfer to [facility] for IRAIS that was worsening. He had started dialysis due to IRAIS and inability to diurese given IRAIS this admission. He has a confirmed ulcer on egd previously this admission with anemia requiring blood transfusions and GI actively following. On 03/23 he had recurrence of melena that worsened and into 03/24 requiring addl prbcs and Vit K. He addl had syncopal episode 03/24. GI planned to do cscope and repeat egd to identify bleeding source. After lengthy discussions with pt and his family he has decided he no longer wishes to have HD and declines GI intervention. He is at peace with his long life and would like to be made comofrtable with family deeply respecting his wishes. Palliative care has kindly assisted family and pt with decision making process. awake, no sob on o2 nc, supra pubic pain, no emesis, no chest pain. family at bedside. He is on the phone with his brother and would like to cont speaking to him at this time. gen- alert, awake,appears stated age eyes- pupils equal round lungs- normal resp effort on o2 nc neuro- AAOx3 skin- + pallor A/P Decision made 03/25 to change code status to DNR CC and pursue hospice care -palliative is assiting family in deciding which hospice setting he would like when leaves IP. Currently in hospice room with Palliative managing symtoms, but not technically yet accepted by [facility], hopeful for [facility] to accept tomorrow once family has finalized his ultimate hospice dc plan. -Palliative assiting with pain control -no further lab draws, tele, blood transfusions -have discussed plan movong forward personally with Dr Fallon BRAXTON and joie this admit managed by nephro- no longer wishes for HD acute Hypoxic resp failure due to pulmonary edema from fluid overload - o2 nc and other supplemental o2 prn acute on chronic diastolic chf- no longer to have HD acute anemia, suspect acute upper gi loss anemia given known ulcer on egd this admit and recurrence of melena 03/23 and 03/24- he has declined gi intervention, comofrt focused care, no longer wishes for blood transfusions, IV PPI for comfort Chronic Afib, rate controlled - holding warfarin given active bleeding, may dc tele Leukocytosis, up trend to 50 in setting of gi bleed, remains afebrile, suspect reactive, no identifiable infectious source has been identified- ua neg for infection, repeat CXR stable no new consolidation, tylenol prn if develops fever Further diagnoses and plan as per resident <Jl Andrade - Last Filed: 03/25/18 17:07> Hospitalist Progress Note - Encounter Date of Encounter: 03/25/18 Time of Encounter: 17:06 - Subjective Interval History: Laying comfortably in bed. Family at bedside. They do not want to proceed with EGD or colonoscopy today. He complains of suprapubic pain again today. Had melena last night. Did not want to wear BiPAP last night. Mckee in place. Denies abdominal pain elsewhere, further emesis, similar prior emesis, cough, chest pain, blurry vision/diplopia, dizzy/lightheadedness, or syncope. - Exam Vitals: Temp Pulse Resp BP Pulse Ox 97.6 F 96 18 106/68 97 03/25/18 02:02 03/25/18 02:02 03/25/18 04:41 03/25/18 02:02 03/25/18 04:41 Exam: General: Awake, alert, appears stated age, no acute distress or signs of toxicity HEENT: EOMi, pupils equal/round, mucus membranes moist, R IJ temp dialysis cath in place. Cardiac: Regular rate, irregularly irregular rhythm, S1/S2 present but distant, no murmurs, heaves, thrills appreciated, radial pulse 2+ bilaterally, normal capillary refill, 2+ LE edema, UE R>L Chest: Symmetric chest rise, non tender Pulmonary: Decreased air movement, normal resp effort, scattered end exp wheezes, no rhonchi, rales appreciated Abdominal: Soft, nontender, no distention, guarding, rebound tenderness, or rig idity Neuro: AOx3, CN grossly intact Psych: Normal affect Integumentary: [place], warm, dry, R lower leg bandaged with break in skin, clear drainage present - Assessment and Plan (1) IRAIS (acute kidney injury) Current Visit: Yes Status: Acute Assessment and Plan: Creatinine increased from baseline: 1.1 to 2.7 at [place]. Slowly worsening despite IV fluid administration. Fluids were discontinued due to worsening edema. IRAIS etiology likely from prenenal azotemia, BPH, dehydration, medication-induced Renal ultrasound unremarkable Mckee in place with noted hematuria on insertion. UA with trace esterase but large blood and tntc microscopic blood. Trend renal function, I&O's Cr 4.38, BUN >130 on 03/22/18 Neph following and appreciate their recs. Temp RIJ dialysis cath placed 03/22/18 Dialysis started 03/22/18 Renal function gradually improving with dialysis, Cr 2.83, BUN 98, K 4.3 Declining dialysis today and transitioning to DNR CC and hospice (2) Acute on chronic diastolic CHF (congestive heart failure) Current Visit: Yes Status: Acute Assessment and Plan: Albumin 2.6, consider dialysis, defer to nephrology LE edema 4+ L>R, UE R>L CXR: No pulm effusion or increasing congestion Right upper extremity ultrasound negative for DVT Patient encouraged to keep his right upper extremity elevated. Echo 03/16/18 revealed LVEF 60-65%, mild RV dilation with normal function, moderate aortic stenosis, mild tricuspid regurg, mild pulmonary hypertension Patient unable to tolerate diuresis secondary to worsening renal function Dialysis again today. Breathing taking more effort today. Anasarca improving from yst. (3) Acute respiratory failure with hypoxia Current Visit: Yes Status: Acute Assessment and Plan: Likely secondary to fluid overloaded and the setting of acute renal failure and CHF exacerbation. ABG on 03/06/18 revealed pCO2 27 Continue bronchodilators, BiPAP prn, and supplemental oxygen Consider repeat ABG if respiratory function worsens (4) Leukocytosis Current Visit: Yes Status: Acute Assessment and Plan: WBC continues to increase. WBC 52.2 today from 30.8 yst. No other signs of infection, afebrile. UA without UTI Leukocytosis likely 2/2 upper GI bleed Cxr without acute process (5) Anemia Current Visit: Yes Status: Acute Assessment and Plan: -Continued drop in hgb since arrival. -Recieved 2 units PRBC 3 seperate times this admission, last given overnight. -Hgb 9.5 today after PRBC -Warfarin held due to bleeding. -Was to have colonoscopy and EGD today but has since declined further care and transitioned to DNR CC and hospice tomorrow. (6) Chronic atrial fibrillation Current Visit: No Status: Chronic Assessment and Plan: -Continuing home digoxin and diltiazem -03/22/30 warfarin held, supratherapeutic INR, vitamin K and FFP (3/4) given -Most recent INR 1.5 -ECHO showed LVEF was 65-70%, moderate as and mild tr. Estimated RVSP was elevated at 41. -Warfarin restarted 03/22/18. -Warfarin held 03/24/18 with concern of bleeding, got 2 units blood yesterday (7) COPD (chronic obstructive pulmonary disease) Current Visit: Yes Status: Chronic Assessment and Plan: -Continue home meds and duonebs q4h -DC prednisone. -Consider ABG if respiratory function declines (8) Urinary retention Current Visit: No Status: Acute Assessment and Plan: -Mckee placed, hematuria noted at placement and on UA -Worsening IRAIS -Monitor I&O's -Nephrology following -Temp RIJ dialysis cath placed 03/22/30 -Dialysis started yesterday -UA, macro and microscopic blood, 50-100 wbc, moderate esterase, neg nitrite or bacteria, not being cultured (9) Esophageal ulcer with bleeding Current Visit: Yes Status: Acute Assessment and Plan: 1 episode of black, tarry emesis 03/18/18 EGD 03/19/18 revealed esophageal ulcers with coffee-ground material in gastric fundus Warfarin held due supratherapeutic INR, vitamin K and FFP given on 03/22/18 IV pantoprazole 40mg BID GI following Warfarin restarted 03/22/18 and most recent INR 1.6 Did have drop in Hgb from 8.3 to 7 03/23/18 after dialysis. Hgb 11.1 2 days ago (03/21/18) Received 2 units blood yesterday with Hgb increase to 8.5, today drop to 7.5 Hemodynamically stable at this point. Melena reported 03/23/18 with pos hemeoccult GI to EGD and colonoscopy today. Pt and family refused further scopes. Palliative care discussing with family the concern of GI bleed and not doing scopes and transition to hospice. (10) Hyperkalemia Current Visit: Yes Status: Resolved Assessment and Plan: Potassium 4.3 Continue low salt diet Continue close monitoring Nephrology following Dialysis resolved hyperkalemia (11) Supratherapeutic INR Current Visit: Yes Status: Resolved Assessment and Plan: Patient takes Coumadin for chronic atrial fibrillation Coumadin has been held and INR level 6.5, likely due to recent antibiotic use Coumadin was reversed with vitamin K and FFP on 03/22/18 (12) Anasarca Current Visit: Yes Status: Acute Assessment and Plan: -Neph following -Dialysis began 03/22/18 -Renal function not tolerate additional diuretics at this time (13) Hypoalbuminemia Current Visit: Yes Status: Acute Assessment and Plan: Summer Intern/dietitian consulted for renal oral supplements DVT Prophylaxis: Anticoagulation held for gi bleed - Time Spent with Patient Total time spent is greater than 50% in coordination of care (as documented) at patient's floor/unit and/or counseling patient: 25 - 35 minutes Plan of Care Discussed with: patient Internal Medicine: Result - Labs CBC & Chem 7: 03/25/18 09:11 03/25/18 05:30 Labs: Short CBC 03/24/18 03/24/18 03/24/18 Range/Units 07:05 12:50 17:40 WBC 30.8 H* (4.3-11.1) K/mcL Hgb 7.5 L 8.0 L 6.8 L (12.9-16.9) g/dL Hct 21.4 L 23.3 L 19.5 L (37.5-50.1) % Plt Count 230 (140-400) K/mcL BMP 03/24/18 07:05 Sodium 134 L Potassium 4.5 Chloride 101 Carbon Dioxide 25 BUN 122 H Creatinine 3.08 H Glucose 128 H Calcium 7.2 L - ABG Interpretation ABG results: PT/INR, D-dimer PT 16.4 Seconds (9.4-12.1) H 03/24/18 07:05 - Impressions Impressions Chest X-Ray 03/22/18 09:26 IMPRESSION: Hemodialysis catheter placement with tips in the SVC. No pneumothorax. Small right pleural effusion with mild right basilar atelectasis. D/ : / 03/22/2018 09:50:20 Ryan Dhaliwal MD / Anaya Zaldivar Interpreting Provider: Ryan Dhaliwal MD Chest X-Ray 03/24/18 10:50 IMPRESSION: No acute process. Stable right basilar atelectatic changes and possible right pleural effusion D/ / Jacob Méndez MD / Jacob Méndez MD Interpreting Provider: Jacob Méndez MD <Adele Magaña - Last Filed: 03/25/18 16:31> (1) Anemia Qualifiers: Anemia type: unspecified type Qualified Code(s): D64.9 - Anemia, unspecified <Jl Andrade - Last Filed: 03/25/18 17:07> (4) Leukocytosis Qualifiers: Leukocytosis type: unspecified Qualified Code(s): D72.829 - Elevated white blood cell count, unspecified (5) Anemia Qualifiers: Anemia type: unspecified type Qualified Code(s): D64.9 - Anemia, unspecified (7) COPD (chronic obstructive pulmonary disease) Qualifiers: COPD type: unspecified COPD Qualified Code(s): J44.9 - Chronic obstructive pulmonary disease, unspecified
[2018-03-25] MEDS: Pantoprazole 40 MG VIAL IVP SCH ×2 (06:37→18:30)
[2018-03-25] MEDS ORDERED: *HR* Heparin 10,000 UNIT/10 ML VIAL IV PRN (06:47)
[2018-03-25] MEDS ORDERED: 0.9 % Sodium Chloride 250 ML IVC PRN (06:47)
[2018-03-25 06:56] LABS: Hematocrit 28.4 % (37.5-50.1); Hemoglobin 9.8 g/dL (12.9-16.9); Mean Corpuscular HGB Conc 34.5 g/dL (31.6-35.5); Mean Corpuscular Hemoglobin 29.9 pg (28.0-33.3); Mean Corpuscular Volume 86.6 fL (83.0-100.0); Mean Platelet Volume 10.1 fL (9.4-12.4); Nucleated Red Blood Cells 10.4 /100 WBC (0); Platelet Count 155 K/mcL (140-400); Red Blood Count 3.28 M/mcL (4.19-5.50); Red Cell Distribution Width 14.4 % (11.5-14.5)
[2018-03-25] MEDS ORDERED: 0.9 % Sodium Chloride 1,000 ML PRIME SCH (07:00)
[2018-03-25 07:02] LABS: INR 1.7; Prothrombin Time 18.6 Seconds (9.4-12.1)
[2018-03-25 07:13] LABS: Calcium 7.1 mg/dL (8.6-10.3); Potassium 4.3 mEq/L (3.5-5.1)
[2018-03-25 07:19] LABS: Lymphocytes # 3.1 K/mcL (0.6-4.6); Monocytes # 2.1 K/mcL (0.0-1.3); Neutrophils # 43.9 K/mcL (1.6-8.9); Platelet Estimate Normal (Normal)
[2018-03-25] MEDS ORDERED: 0.9 % Sodium Chloride 2,000 ML ONE (08:02)
[2018-03-25] MEDS ORDERED: *HR* Phytonadione 10 MG/ML AMPUL SQ ONE (08:17)
[2018-03-25] MEDS: *HR* Digoxin 0.125 MG TABLET PO SCH (08:44)
[2018-03-25] MEDS: Diltiazem CD (24hr) 300 MG CAPSULE PO SCH (08:44)
[2018-03-25] MEDS: Brinzolamide 1% 10 ML BOTTLE BOTH EYES SCH ×2 (08:45→23:11)
[2018-03-25 09:50] LABS: Hematocrit 27.7 % (37.5-50.1); Hemoglobin 9.5 g/dL (12.9-16.9)
--- NOTE | 2018-03-25 10:59 | Palliative Progress Note ---
Date of Encounter: 03/25/18 Time of Encounter: 10:45 - Assessment and plan (1) Goals of care, counseling/discussion Current Visit: Yes Status: Acute Assessment and plan: Conducted a lengthy today with patient and family: son Shahid, 2 grand-daughters and Niece. Explained pt's overall clinical condition, trajectory of illness, poo r prognosis and treatment options. Pt does not want to continue HD as he feels it is too burdensome for him. Also pt continues to have melanotic stool and is refusing colonoscopy because he does not feel he can undergo preparation. Pt stated "I had a good life and I think it is time for me to rest". Discussed hospice philosophy and services as well as different settings and levels of care. Explained that pt is hospice elligible due to IRAIS if he refuses HD, discussed that on hospice there will be no blood transfusion or further work up. Pt is understanding and agreeable. Son Shahid was having some reserve and would like to have a chance to discuss with his siblings (Bing and Ubaldo) to be involv ed in the conversation. Also he would like more information about financial implications as pt cannot return home. TREVER Trevino was contacted and will discuss with family. Palliative care will follow up in the afternoon for a final decision. Time spent with pt and family 25 minutes. (2) Dyspnea Current Visit: Yes Status: Acute Assessment and plan: Pt has heavy breathing but denies subjective SOB. continue Buoneb and bronchodilators Qualifiers: Dyspnea type: shortness of breath Qualified Code(s): R06.02 - Shortness of breath; R06.00 - Dyspnea, unspecified; R06.01 - Orthopnea (3) Declining functional status Current Visit: Yes Status: Acute Assessment and plan: Pt is very weak and with decreased functional status. PT recommending SNF. If pt decide for hospice, he will need SNF placement. (4) Acute renal failure Current Visit: Yes Status: Acute Assessment and plan: Pt has received so far 2 sessions of HD, with some improvement in BUN/CR. Sharma madonna, he is against continuing HD. He is requesting comfort care only. Qualifiers: Acute renal failure type: with acute tubular necrosis Qualified Code(s): N17.0 - Acute kidney failure with tubular necrosis (5) Anemia Current Visit: Yes Status: Acute Assessment and plan: Pt has another episode of melena yesterday, followed by hypotension. He was given 2 more PRBC to a total of 4PRBCs. Patient is refusing any further work up for anemia. Qualifiers: Anemia type: unspecified type Qualified Code(s): D64.9 - Anemia, unspecified - Time Spent With Patient Total time spent is greater than 50% in coordination of care (as documented) at patient's floor/unit and/or counseling patient: Greater than 35 minutes - Subjective Interval history: Pt was lying in bed, in no acute distress, states he is feeling fine. complains of pain in his lower extremities. - Constitutional Vitals: Abnormal lab results WBC 52.2 K/mcL (4.3-11.1) H* D 03/25/18 05:30 RBC 3.28 M/mcL (4.19-5.50) L 03/25/18 05:30 Hgb 9.5 g/dL (12.9-16.9) L 03/25/18 09:11 Hct 27.7 % (37.5-50.1) L 03/25/18 09:11 Band Neutrophils % 8.0 % (0-4) H 03/25/18 05:30 Metamyelocytes % 4.0 % (0) H 03/25/18 05:30 Myelocytes % 2.0 % (0) H 03/25/18 05:30 Neutrophils # 43.9 K/mcL (1.6-8.9) H 03/25/18 05:30 Monocytes # 2.1 K/mcL (0.0-1.3) H 03/25/18 05:30 Nucleated RBCs/100 WBC 10.4 /100 WBC (0) H 03/25/18 05:30 PT 18.6 Seconds (9.4-12.1) H 03/25/18 05:30 Sodium 133 mEq/L (136-145) L 03/25/18 05:30 BUN 98 mg/dL (8-23) H 03/25/18 05:30 Creatinine 2.83 mg/dL (0.70-1.30) H 03/25/18 05:30 Est GFR ( Amer) 26 (> 60) L 03/25/18 05:30 Est GFR (Non-Af Amer) 21 (> 60) L 03/25/18 05:30 BUN/Creatinine Ratio 35 (6-26) H 03/25/18 05:30 Glucose 194 mg/dL (70-105) H 03/25/18 05:30 POC Glucose 114 mg/dL (70-99) H 03/22/18 11:07 Calculated Osmolality 312 (280-300) H 03/25/18 05:30 Calcium 7.1 mg/dL (8.6-10.3) L 03/25/18 05:30 Phosphorus 6.3 mg/dL (2.7-4.5) H 03/24/18 07:05 Serum Total Protein 4.9 g/dL (6.4-8.9) L 03/21/18 06:14 Total Protein (PEP) 5.50 g/dL (6.00-8.30) L 03/18/18 13:30 Albumin 2.6 g/dL (3.5-5.7) L 03/21/18 06:14 Albumin (PEP) 2.51 g/dL (3.75-5.01) L 03/18/18 13:30 Globulin 2.3 g/dL (2.4-3.5) L 03/21/18 06:14 Ur Specimen Adequacy See below A 03/23/18 15:10 Urine Clarity Cloudy (Clear) A 03/23/18 15:10 Ur Specific [place] 1.029 (1.010-1.025) H 03/23/18 15:10 Urine Protein >=1000 mg/dL (Neg-Trace) H 03/23/18 15:10 Urine Blood Large (Negative) H 03/23/18 15:10 Ur Leukocyte Esterase Moderate (Negative) H 03/23/18 15:10 Urine Microscopic RBC TNTC per hpf (0-3) H 03/23/18 15:10 Urine Microscopic WBC 50-100 per hpf (0-3) H 03/23/18 15:10 Ur Squamous Epith Cells Many per lpf (None-Few) H 03/23/18 15:10 Ur Culture Indicated? NO. (NO) A 03/23/18 15:10 U Free [place] Light Ch 3.75 mg/dL (0.14-2.42) H 03/18/18 17:30 U Free Lambda Light Ch 3.22 mg/dL (0.02-0.67) H 03/18/18 17:30 U Free [place]/Lambda 1.16 ratio (2.04-10.37) L 03/18/18 17:30 Stool Occult Blood Positive (Negative) A 03/23/18 18:50 IgG 755 mg/dL (768-1632) L 03/18/18 13:30 IgA 514 mg/dL (68-408) H 03/18/18 13:30 Complement C3 5 mg/dL (88-201) L 03/18/18 13:30 Free [place] LC, Quant 14.90 mg/dL (0.33-1.94) H 03/18/18 13:30 Free Lambda LC, Quant 7.79 mg/dL (0.57-2.63) H 03/18/18 13:30 Free [place]/Lambda Ratio 1.91 (0.26-1.65) H 03/18/18 13:30 Exam: General appearance: Present: well-developed, well-nourished, chronically ill, fatigue, frail EENT: Present: ATNC, PERRL, mucous membranes moist Neck: Present: supple, temporary dialysis catheter in R IJ. Respiratory: Present: course breath sounds with crackles in the bases, diffused wheezing Cardiology: Present: edema (1+ hand edena and about 1+ edema of the ankles bilaterally), irregular rhythm, normal S1, normal S2 Gastrointestinal: Present: normoactive bowel sounds, no tenderness, no guarding, obese Musculoskeletal: Present: no deformities, no clubbing, bilateral edema Integumentary: Present: erythema (with LE skin breakdown and oozing of serous fluid. ), ecchymotic, chronic venous stasis Neurologic: Present: no focal deficit, no asterixis, alert and oriented x3 Psychiatric: Present: mood/affect appropriate, cooperative Palliative Quality Palliative Quality: Screen for Code Status: Yes, Screen for Goals of Care: Yes, Screen for Pain: Yes, If Pain Regimen Started, Initiate Bowel Regimen: NA, Screen for Nausea/Vomitting: Yes Code Status: 03/17/18 15:54 Resuscitation Status: Active [RES] Routine Comment: Resuscitation Status: Full Code 03/24/18 17:30 DNR [Resuscitation Status: Active] [RES] Routine Comment: Resuscitation Status: DNR-Comfort Care-Arrest - Labs CBC & Chem 7: 03/25/18 09:11 03/25/18 05:30 Labs: Laboratory Results - last 24 hr 03/23/18 03/24/18 03/24/18 08:07 12:50 17:40 WBC RBC Hgb 8.0 L 6.8 L Hct 23.3 L 19.5 L MCV MCH MCHC RDW Plt Count MPV Seg Neutrophils % Band Neutrophils % Lymphocytes % Monocytes % Metamyelocytes % Myelocytes % Neutrophils # Lymphocytes # Monocytes # Nucleated RBCs/100 WBC Platelet Estimate PT INR Sodium Potassium Chloride Carbon Dioxide BUN Creatinine Est GFR ( Amer) Est GFR (Non-Af Amer) BUN/Creatinine Ratio Glucose Calculated Osmolality Calcium Blood Type O POSITIVE Antibody Screen NEGATIVE Crossmatch See Detail 03/25/18 03/25/18 03/25/18 05:30 05:30 05:30 WBC 52.2 H* D RBC 3.28 L Hgb 9.8 L D Hct 28.4 L MCV 86.6 MCH 29.9 MCHC 34.5 RDW 14.4 Plt Count 155 MPV 10.1 Seg Neutrophils % 76.0 Band Neutrophils % 8.0 H Lymphocytes % 6.0 Monocytes % 4.0 Metamyelocytes % 4.0 H Myelocytes % 2.0 H Neutrophils # 43.9 H Lymphocytes # 3.1 Monocytes # 2.1 H Nucleated RBCs/100 WBC 10.4 H Platelet Estimate Normal PT 18.6 H INR 1.7 Sodium 133 L Potassium 4.3 Chloride 98 Carbon Dioxide 23 BUN 98 H Creatinine 2.83 H Est GFR ( Amer) 26 L Est GFR (Non-Af Amer) 21 L BUN/Creatinine Ratio 35 H Glucose 194 H Calculated Osmolality 312 H Calcium 7.1 L Blood Type Antibody Screen Crossmatch 03/25/18 09:11 WBC RBC Hgb 9.5 L Hct 27.7 L MCV MCH MCHC RDW Plt Count MPV Seg Neutrophils % Band Neutrophils % Lymphocytes % Monocytes % Metamyelocytes % Myelocytes % Neutrophils # Lymphocytes # Monocytes # Nucleated RBCs/100 WBC Platelet Estimate PT INR Sodium Potassium Chloride Carbon Dioxide BUN Creatinine Est GFR ( Amer) Est GFR (Non-Af Amer) BUN/Creatinine Ratio Glucose Calculated Osmolality Calcium Blood Type Antibody Screen Crossmatch - Impressions Impressions Chest X-Ray 03/24/18 10:50 IMPRESSION: No acute process. Stable right basilar atelectatic changes and possible right pleural effusion D/ / Jacob Méndez MD / Jacob Méndez MD Interpreting Provider: Jacob Méndez MD - ABG Interpretation ABG results: PT/INR, D-dimer PT 18.6 Seconds (9.4-12.1) H 03/25/18 05:30 Consult Discharge Plan - Plan Referrals: Samuel Hyatt MD [Primary Care Provider] - (patient will follow up with ECF PCP or if goes home will probably go with hospice)
--- NOTE | 2018-03-25 11:54 | Event Note ---
Date of Encounter: 03/25/18 Time of Encounter: 10:30 Patient had episode of melena overnight. Hgb 9.5 this AM. Patient agreeable to pursue Hospice care. Will hold on push enteroscopy at this time.
--- NOTE | 2018-03-25 13:16 | Nephrology Progress Note ---
Addendum entered and electronically signed by Kendall Patrick MD 03/26/18 00:05: The patient has decided to pursue hospice so we will sign off. Please call us if anything changes. Addendum entered and electronically signed by Kendall Patrick MD 03/26/18 00:02: I examined this patient and discussed the medical decision-making with YOEL Pardo. I agree with the documented findings, disposition and treatment plan as described except to the extent set forth below. The patient refused dialysis this morning. The conversation with the patient as long with the family discussing his options overall. The patient seems to be hesitant to receive further procedures including endoscopy or to get outpatient dialysis. He is undecided about getting inpatient dialysis. I let him and his family know that should they decide to discontinue to let us know and we would honor his wishes. Also he wishes to receive either hemodialysis or ultrafiltration we will gladly provide that as well. 33 minutes was spent in the care of this patient with greater than one half of this time spent coronation of care and/or counseling. Original Note: Date of Encounter: 03/25/18 Time of Encounter: 13:13 - Assessment and Plan (1) IRAIS (acute kidney injury) Current Visit: Yes Status: Acute HD dependent IRAIS. Mckee cath in for urinary retention. Had 3 consecutive days in a row of HD. [Declined today, will reassess for tomorrow. It appears patient is going to go hospice, will continue to follow along until this happens. Avoid nephrotoxins and renal dose. Strict I/O. Pt has adamantly declined outpatient HD, so no plans to establish chair time. (2) Urinary retention Current Visit: No Status: Acute Improved with Mckee cath in place. (3) UGI bleed Current Visit: Yes Status: Suspected Per primary. Pt has declined upper and lower scope at this time. (4) Wound of right lower extremity Current Visit: Yes Status: Acute Continue to cover and change as needed. Qualifiers: Qualified Code(s): S81.801A - Unspecified open wound, right lower leg, initial encounter (5) Hyperkalemia Current Visit: Yes Status: Resolved is 4.5 today, will correct with HD. (6) Renal cysts, acquired, bilateral Current Visit: Yes Status: Acute Newly diagnosed and most likely are acquired simple renal cysts. Would recommend serial imaging in about 6 months to assess size and density. Subjective Principal diagnosis: IRAIS and PNA Interval history: Seen and examined doing well. Denies any chest pain or shortness of breath. Denies nausea/vomiting/diarrhea. Spoke at length re: HD and outpatient HD with Dr. Patrick and several family members. Pt has declined HD today, but will see for tomorrow. Objective - Vital Signs Vital signs: Vital Signs Temp Pulse Resp BP Pulse Ox 03/25/18 12:49 97.5 F L 105 16 115/46 95 03/25/18 08:33 97.4 F L 94 16 117/73 98 03/25/18 05:30 97.5 F L 75 20 135/71 03/25/18 04:41 18 97 03/25/18 02:02 97.6 F 96 20 106/68 98 03/25/18 00:02 18 97 03/24/18 21:41 98.5 F 82 20 99/57 03/24/18 21:35 98.5 F 82 20 99/57 98 03/24/18 19:11 97.6 F 79 17 98/63 96 03/24/18 18:02 18 98 03/24/18 17:28 97.2 F L 18 117/72 03/24/18 16:40 118/72 03/24/18 16:25 116/50 03/24/18 16:10 116/50 03/24/18 15:55 92/57 03/24/18 15:40 118/37 03/24/18 15:25 101/60 03/24/18 15:10 93/51 03/24/18 14:55 97/47 03/24/18 14:40 94/56 03/24/18 14:25 107/59 03/24/18 14:10 124/65 03/24/18 13:55 116/54 03/24/18 13:40 97.0 F L 18 113/65 Intake and Output 03/24/18 03/25/18 03/25/18 23:59 07:59 15:59 Intake Total 0 / 0 700 / 700 60 / 60 Output Total 600 / 600 Balance -600 / -600 700 / 700 60 / 60 Intake: Oral 60 / 60 Blood Product 0 / 0 700 / 700 Rbcs Leuko Poor As-1 Unit 350 / 350 [id number] Rbcs Leuko Poor As-3 2nd Unit 0 / 0 350 / 350 [id number] Output: Urine 0 / 0 Total Dialysis (HD) Output 600 / 600 Other: Hemodialysis Net Fluid Removed 0 (mL) - General Appearance General appearance: Present: well-developed, fatigue, frail EENT: Present: ATNC, hearing intact, vision intact Neck: Present: supple Respiratory: Present: clear Cardiology: Present: edema (Anasarca to all four extremities.), normal S1, normal S2 Dialysis Vascular Access: Venous Catheter (Temp line drsg c/d/i) Gastrointestinal: Present: normoactive bowel sounds, no tenderness, no guarding Integumentary: Present: no rash, warm and dry Neurologic: Present: alert and oriented x3 Psychiatric: Present: mood/affect appropriate, cooperative - Lab 03/25/18 09:11 03/25/18 05:30 Most recent lab results Calcium 7.1 mg/dL (8.6-10.3) L 03/25/18 05:30 Phosphorus 6.3 mg/dL (2.7-4.5) H 03/24/18 07:05 Magnesium 1.9 mg/dL (1.6-2.6) 03/24/18 07:05 Urine Creatinine 257 mg/dL 03/18/18 05:11 Urine Sodium 17.9 mEq/L 03/18/18 05:11 Urine Total Protein SEE NOTE mg/d (10-140) 03/18/18 17:30 Consult Discharge Plan - Plan Referrals: Samuel Hyatt MD [Primary Care Provider] - (patient will follow up with ECF PCP or if goes home will probably go with hospice)
[2018-03-25] MEDS ORDERED: Morphine Oral CONC 5 MG/0.25 ML ORAL.SYG PO PRN (14:09)
[2018-03-25] MEDS: MORPHINE SUL Oral CONC 10 MG/0.5 ML ORAL.SYG PO PRN ×3 (14:26→22:52)
[2018-03-25 19:55] VITALS: BP 94/47
[2018-03-25] MEDS ORDERED: Ipratropium/Albuterol Neb 3 ML IH ONE (23:04)
[2018-03-25] MEDS: Latanoprost 2.5 ML BOTTLE BOTH EYES SCH (23:12)
[2018-03-25] MEDS ORDERED: MORPHINE SUL Oral CONC 10 MG/0.5 ML ORAL.SYG PO ONE (23:37)
[2018-03-26] MEDS: Ipratropium/Albuterol Neb 3 ML IH SCH ×3 (04:32→11:01)
--- NOTE | 2018-03-26 08:33 | Death Note ---
Discharge Sum: Summary - Date and Time Date of admission: 03/18/18 18:05 Date of : 03/26/18 Time of : 00:45 - Summary Details: Mr Bean was an 87 yo male with pmhx afib, copd, glaucoma, hld, PAD, CKD Stage 2 admitted as a transfer from [facility]. He had been previously admitted the 03/06- per chart review, treated for pneumonia, discharged to [facility] bed on 03/09 for ongoing IV abx and therapy. On 03/15 he had worsening sob had escalated treatment of pna and developed IRAIS with urinary retention noted. IRAIS worsened over next two days and family requested transfer to [facility] on 03/17. Treatment was started for acute renal failure and CHF exacerbation. Shortly after admission he had coffee ground emesis with GI consulted and IV PPI started and home warfarin held. EGD by GI 03/19 revealed multiple cratered ulcers, bleeding of the esophagus. He remained of warfarin for some time, hgbs were monitored and decision made by previous privder team to resume warfarin with monitoring. He could not adequately be diuresed due to kidney impairment and nephrology was consulted. He did require initiation of hemodialysis which was managed by nephro with stabilization of his respiratory status. On 03/23 evening he had single episode melena, with gi bleeding precautions and orders placed and melena cont requiring addl prbcs and Vit K. GI was immediately contacted to assist with management. GI planned to do cscope and repeat egd to attempt to identify bleeding source as hgb was hard to correct despite recurrent prbc transfusions. His INR remained subtherutic, but was corrected as well empirically. After lengthy discussions with pt and his family he has decided he no longer wished to have HD and declined GI intervention. He stated repeatedly to staff he was at peace with his long life and would like to be made comfortable with family deeply respecting his wishes. Palliative care kindly assisted family and pt with decision making process. At the time of his passing he was formally awaiting hospice placement with Palliative care assisting in coomfort measures - Additional Data Family: contacted Attending/PCP notified?: Yes (overnight clinician Dionicio Quinn notified by RNs) Attending physician: Adele Magaña Was code activated?: No (patient was comfort care awaiting hospice placement) Autopsy requested?: No credit union examiner notified?: No Organ bank notified?: Yes Advance directives: Yes (DNR CC) Hospice patient?: Yes Discharge Sum: Diag - PCOD Probable Cause of : Cardiac arrest Discharge Sum: Prov - Provider Primary care physician: Samuel Hyatt MD Admitting clinician: Cristiano Greene Consults: 03/17/18 16:05 Consult to Occupational Therapy [CONS] Routine Comment: Evaluate, develop and implement POC Reason for Consult: Weakness Does patient have active BEDREST order?: No Is patient medically & hemodynamically stable?: Yes Patient assessed for mobility or mobilized this visit?: No Consult to Physical Therapy [CONS] Routine Comment: Evaluate, develop and implement POC Reason for Consult: Weakness Does patient have active BEDREST order?: No Is patient medically & hemodynamically stable?: Yes Patient assessed for mobility or mobilized this visit?: No 03/18/18 09:20 Consult to Gastroenterology [CONS] Routine Consulting Provider: Gastroenterology Lala Reason for Consult: 1 episode black emesis this morning, hgb stable in 12's, warfarin held, INR 2.8, on protonix. Evaluate for UGI bleed and possible EGD Time Notified: 09:22 Call Completed: Yes Consult to Nephrology [CONS] Routine Consulting Provider: Kidney Lala/LAILA/MATTHEW/LOREN Reason for Consult: Worsening IRAIS, baseline 1.1, worsened to 2.7 at [place] before transfer and 3.03 today. Micro and macroscopic blood with trace esterase on UA, hematuria noted on murillo insertion yst. Time Notified: 09:25 Call Completed: Yes 03/22/18 00:01 Consult to Nutrition [CONS] Routine Comment: renal supplements Consulting Provider: NUTRITION Reason for Dietary Consult: PO Supplementation 03/22/18 05:00 Consult to Interventional Radiology [CONS] Routine Consulting Provider: Radiology Interventional Cols Reason for Consult: Please evaluate for placement of a Temporary HD catheter. Thank you . Call Completed: No 03/22/18 07:00 Consult to Dialysis [CONS] ONCE 03/23/18 07:07 Consult to Tour Driver [CONS] Routine Reason for SW Consult: needs rehab or swing, poss new HD setup chair time 03/23/18 08:00 Consult to Dialysis [CONS] ONCE 03/24/18 09:45 Consult to Dialysis [CONS] ONCE 03/24/18 10:09 Consult to Palliative Care [CONS] Routine Comment: Consulting Provider: Palliative Care Lala Reason for Consult: Multiple medical problems in declining 87 year old man. Would like input of end goals of care. Time Notified: 10:10 Call Completed: Yes 03/25/18 06:47 Consult to Dialysis [CONS] Stat Pronouncing clinician: Dionicio Quinn
[2018-03-26] MEDS: Budesonide/Formoterol 160/4.5 1 PUFF INH IH SCH (11:01)
== END 2018-03-26 00:25 | disposition expired | DRG 380 ==
LOC: 3ANU → SUATTDRO 12:50 → 2ANU 03-22 13:10
PROVIDERS: ADMIT Internal Medicine; ATTEND Internal Medicine